=== PATIENT | female | born 1950 | race Caucasian/White ===

== ENCOUNTER 2020-04-23 10:16 | Inpatient (IN) | payer MEDICARE ==
--- NOTE | 2020-04-23 11:03 | ED ---
Psych HPI - General Source: patient Mode of arrival: EMS <Vishal Mccallum - Last Filed: 04/23/20 19:30> - General Source: RN notes reviewed, old records reviewed - History of Present Illness MD Complaint: altered mental status -: unknown Associated Psychiatric Symptoms: racing thoughts, auditory hallucinations, visual hallucinations, delusions, other (Per transfer paperwork) Quality: getting worse Worsens With: medication (Steroids) Context: new medication(s) Treatments Prior to Arrival: placed on mental health hold <Quinton Fisher - Last Filed: 04/23/20 22:16> - General Chief Complaint: Psychiatric Symptoms Stated Complaint: Mental Health Time Seen by Provider: 04/23/20 10:27 - History of Present Illness Initial Comments: Patient is 69-year-old female with history of COPD presenting to emergency department for psychiatric evaluation. Patient is transferred from [facility] per request of for geriatric psychiatric evaluation. is also present in the room to answer additional questions. Per , patient was discharged from [facility] after she was admitted for steroid-induced psychosis. states the patient did not improve so they returned today for evaluation. Per ED nose from [facility], donna dale was given Geodon and Ativan because she was uncooperative and yelling. Patient transferred to this facility. Patient is currently drowsy and not able to answer additional questions. (Vishal Mccallum) - Related Data Home Medications Medication Instructions Recorded Confirmed Carvedilol [Coreg] 25 mg PO BID 04/23/20 04/23/20 Lisinopril-Hctz 20-12.5 mg 1 tab PO DAILY 04/23/20 04/23/20 [Zestoretic 20-12.5] Omeprazole 20 mg PO BID 04/23/20 04/23/20 amLODIPine [Norvasc] 10 mg PO DAILY 04/23/20 04/23/20 cloNIDine HCL [Catapres] 0.1 mg PO BID 04/23/20 04/23/20 Allergies Allergy/AdvReac Type Severity Reaction Status Date / Time codeine Allergy Unknown Verified 04/23/20 12:33 iodine Allergy Unknown Verified 04/23/20 12:33 Penicillins Allergy Swelling Verified 04/23/20 12:33 Review of Systems ROS Other: All systems not noted in ROS Statement are negative. <Vishal Mccallum - Last Filed: 04/23/20 19:30> ROS Other: All systems not noted in ROS Statement are negative. <Quinton Fisher - Last Filed: 04/23/20 22:16> ROS Statement: Those systems with pertinent positive or pertinent negative responses have been documented in the HPI. Past Medical History Past Medical History: COPD, Hypertension, Respiratory Disorder Additional Past Medical History / Comment(s): fibromyalgia Past Surgical History: Appendectomy, Orthopedic Surgery, Tonsillectomy Past Psychological History: No Psychological Hx Reported Smoking Status: Former smoker Past Alcohol Use History: Rare Past Drug Use History: None Reported <Vishal Mccallum - Last Filed: 04/23/20 19:30> General Exam Limitations: no limitations General appearance: in no apparent distress Head exam: Present: atraumatic, normocephalic, normal inspection Eye exam: Present: normal appearance, PERRL, EOMI Pupils: Present: normal accommodation ENT exam: Present: normal exam, normal oropharynx, mucous membranes dry Neck exam: Present: normal inspection Respiratory exam: Present: normal lung sounds bilaterally. Absent: respiratory distress, wheezes, rales Cardiovascular Exam: Present: normal rhythm, tachycardia, systolic murmur Extremities exam: Present: normal inspection, normal capillary refill, other (+2 ulnar and radial pulses bilateral.) Back exam: Present: normal inspection Skin exam: Present: warm, dry, intact, normal color <Vishal Mccallum - Last Filed: 04/23/20 19:30> General appearance: in no apparent distress, obtunded, in distress Head exam: Present: atraumatic, normocephalic, normal inspection Eye exam: Present: normal appearance, PERRL, EOMI. Absent: scleral icterus, conjunctival injection, periorbital swelling ENT exam: Present: normal exam, mucous membranes moist Neck exam: Present: normal inspection. Absent: tenderness, meningismus, lymphadenopathy Respiratory exam: Present: normal lung sounds bilaterally. Absent: respiratory distress, wheezes, rales, rhonchi, stridor Cardiovascular Exam: Present: regular rate, normal rhythm, tachycardia, normal heart sounds. Absent: systolic murmur, diastolic murmur, rubs, gallop, clicks GI/Abdominal exam: Present: soft, normal bowel sounds. Absent: distended, tenderness, guarding, rebound, rigid Extremities exam: Present: normal inspection, full ROM, normal capillary refill. Absent: tenderness, pedal edema, joint swelling, calf tenderness Back exam: Present: normal inspection Neurological exam: Present: alert, oriented X3, CN II-XII intact Psychiatric exam: Present: normal affect, normal mood Skin exam: Present: warm, dry, intact, normal color. Absent: rash <Quinton Fisher - Last Filed: 04/23/20 22:16> Course <Quinton Fisher - Last Filed: 04/23/20 22:16> Vital Signs 04/23/20 04/23/20 04/23/20 10:22 10:39 15:00 Temperature 97.4 F L Pulse Rate 111 H 68 Respiratory 18 20 Rate Blood Pressure 170/92 157/64 O2 Sat by Pulse 100 96 Oximetry 04/23/20 18:48 Temperature Pulse Rate 88 Respiratory 18 Rate Blood Pressure 146/72 O2 Sat by Pulse 96 Oximetry - Reevaluation(s) Reevaluation #1: 04/23/20 22:13 Medical record is reviewed (Quinton Fisher) Reevaluation #2: 04/23/20 22:14 Patient did receive Geodon and Ativan it prior facility (Quinton Fisher) Reevaluation #3: 04/23/20 22:14 Patient was unable to wake up from Geodon and Ativan in secondary to mildly dec reased appreciated respiratory drive developed charley management respiratory acidosis requiring intubation secondary to unresponsiveness (Quinton Fisher) - Consultations Consultation #1: Spoke with Dr. Cruz and Dr. Mayberry for ICU placement (Quinton Fisher) Procedures - Intubation Sedative: Versed Paralytic: Succinylcholine Laryngoscope: Eda ET Tube Size: 7.5 ET Tube Uncuffed: No Tube Secured Location: teeth Tube Placement Confirmation: visualized tube passing through cords, equal breath sounds bilaterally, no breath sounds over epigastrium, confirmation by capnometry Patient Tolerated Procedure: well Intubation Complications: none <Quinton Fisher - Last Filed: 04/23/20 22:16> Medical Decision Making - Lab Data Result diagrams: 04/23/20 18:35 04/23/20 18:35 <Vishal Mccallum - Last Filed: 04/23/20 19:30> - Lab Data Result diagrams: 04/23/20 18:35 04/23/20 18:35 - EKG Data -: EKG Interpreted by Me (EKG shows sinus of 97, VA 154 QRS 82 QTC 441) - Radiology Data Radiology results: report reviewed (CT brain is negative chest x-rays negative for acute disease), image reviewed <Quinton Fisher - Last Filed: 04/23/20 22:16> - Medical Decision Making Patient is a 69-year-old female presented to the emergency department for psychiatric evaluation patient is a transfer from [facility]. Prior to transfer, patient was given Geodon and Ativan. Patient continues to be drowsy and emergency department. UA reveals no signs of urinary tract infections. Urine drug screen screen reveals positive for benzodiazepines. CBC is an alert,. CMP reveals mild hyponatremia. Patient is pending EPS eval uation. At this time patient care will be signed off to Dr fisher (Vishal Mccallum) 69 female for respiratory failure medication induced complicated by history of oxygen-dependent COPD. Patient was intubated and will be admitted for further evaluation management (Quinton Fisher) - Lab Data Lab Results 04/23/20 04/23/20 04/23/20 Range/Units 13:39 18:07 18:35 WBC 8.4 (3.8-10.6) k/uL RBC 4.62 (3.80-5.40) m/uL Hgb 14.3 (11.4-16.0) gm/dL Hct 45.1 (34.0-46.0) % MCV 97.6 (80.0-100.0) fL MCH 30.9 (25.0-35.0) pg MCHC 31.7 (31.0-37.0) g/dL RDW 12.4 (11.5-15.5) % Plt Count 187 (150-450) k/uL Neutrophils % 85 % Lymphocytes % 5 % Monocytes % 7 % Eosinophils % 0 % Basophils % 1 % Neutrophils # 7.1 (1.3-7.7) k/uL Lymphocytes # 0.4 L (1.0-4.8) k/uL Monocytes # 0.6 (0-1.0) k/uL Eosinophils # 0.0 (0-0.7) k/uL Basophils # 0.1 (0-0.2) k/uL Sodium (137-145) mmol/L Potassium (3.5-5.1) mmol/L Chloride (98-107) mmol/L Carbon Dioxide (22-30) mmol/L Anion Gap mmol/L BUN (7-17) mg/dL Creatinine (0.52-1.04) mg/dL Est GFR (CKD-EPI)AfAm (>60 ml/min/1.73 sqM) Est GFR (CKD-EPI)NonAf (>60 ml/min/1.73 sqM) Glucose (74-99) mg/dL POC Glucose (mg/dL) 146 H (75-99) mg/dL POC Glu [employer] ID Bhrati Mak Plasma Lactic Acid Canelo (0.7-2.0) mmol/L Calcium (8.4-10.2) mg/dL Total Bilirubin (0.2-1.3) mg/dL AST (14-36) U/L ALT (4-34) U/L Alkaline Phosphatase (38-126) U/L Ammonia (<30) umol/L Total Protein (6.3-8.2) g/dL Albumin (3.5-5.0) g/dL Urine Color Yellow Urine Appearance Clear (Clear) Urine pH 7.0 (5.0-8.0) Ur Specific Mcclusky 1.010 (1.001-1.035) Urine Protein Trace H (Negative) Urine Glucose (UA) Negative (Negative) Urine Ketones Negative (Negative) Urine Blood Negative (Negative) Urine Nitrite Negative (Negative) Urine Bilirubin Negative (Negative) Urine Urobilinogen <2.0 (<2.0) mg/dL Ur Leukocyte Esterase Negative (Negative) Salicylates mg/dL Urine Opiates Screen Not Detected (NotDetected) Ur Oxycodone Screen Not Detected (NotDetected) Urine Methadone Screen Not Detected (NotDetected) Ur Propoxyphene Screen Not Detected (NotDetected) Acetaminophen ug/mL Ur Barbiturates Screen Not Detected (NotDetected) U Tricyclic Antidepress Not Detected (NotDetected) Ur Phencyclidine Scrn Not Detected (NotDetected) Ur Amphetamines Screen Not Detected (NotDetected) U Methamphetamines Scrn Not Detected (NotDetected) U Benzodiazepines Scrn Detected H (NotDetected) Urine Cocaine Screen Not Detected (NotDetected) U Marijuana (THC) Screen Not Detected (NotDetected) Serum Alcohol mg/dL 04/23/20 04/23/20 04/23/20 Range/Units 18:35 19:19 19:35 WBC (3.8-10.6) k/uL RBC (3.80-5.40) m/uL Hgb (11.4-16.0) gm/dL Hct (34.0-46.0) % MCV (80.0-100.0) fL MCH (25.0-35.0) pg MCHC (31.0-37.0) g/dL RDW (11.5-15.5) % Plt Count (150-450) k/uL Neutrophils % % Lymphocytes % % Monocytes % % Eosinophils % % Basophils % % Neutrophils # (1.3-7.7) k/uL Lymphocytes # (1.0-4.8) k/uL Monocytes # (0-1.0) k/uL Eosinophils # (0-0.7) k/uL Basophils # (0-0.2) k/uL Sodium 133 L (137-145) mmol/L Potassium 4.1 (3.5-5.1) mmol/L Chloride 92 L (98-107) mmol/L Carbon Dioxide 33 H (22-30) mmol/L Anion Gap 8 mmol/L BUN 15 (7-17) mg/dL Creatinine 0.53 (0.52-1.04) mg/dL Est GFR (CKD-EPI)AfAm >90 (>60 ml/min/1.73 sqM) Est GFR (CKD-EPI)NonAf >90 (>60 ml/min/1.73 sqM) Glucose 140 H (74-99) mg/dL POC Glucose (mg/dL) (75-99) mg/dL POC Glu [employer] T[employer] Apprentice ID Plasma Lactic Acid Canelo 0.6 L (0.7-2.0) mmol/L Calcium 8.8 (8.4-10.2) mg/dL Total Bilirubin 0.5 (0.2-1.3) mg/dL AST 38 H (14-36) U/L ALT 55 H (4-34) U/L Alkaline Phosphatase 63 (38-126) U/L Ammonia 30 H (<30) umol/L Total Protein 6.8 (6.3-8.2) g/dL Albumin 4.0 (3.5-5.0) g/dL Urine Color Urine Appearance (Clear) Urine pH (5.0-8.0) Ur Specific Mcclusky (1.001-1.035) Urine Protein (Negative) Urine Glucose (UA) (Negative) Urine Ketones (Negative) Urine Blood (Negative) Urine Nitrite (Negative) Urine Bilirubin (Negative) Urine Urobilinogen (<2.0) mg/dL Ur Leukocyte Esterase (Negative) Salicylates <1.0 mg/dL Urine Opiates Screen (NotDetected) Ur Oxycodone Screen (NotDetected) Urine Methadone Screen (NotDetected) Ur Propoxyphene Screen (NotDetected) Acetaminophen <10.0 ug/mL Ur Barbiturates Screen (NotDetected) U Tricyclic Antidepress (NotDetected) Ur Phencyclidine Scrn (NotDetected) Ur Amphetamines Screen (NotDetected) U Methamphetamines Scrn (NotDetected) U Benzodiazepines Scrn (NotDetected) Urine Cocaine Screen (NotDetected) U Marijuana (THC) Screen (NotDetected) Serum Alcohol <10 mg/dL Critical Care Time Critical Care Time: Yes Total Critical Care Time: 31 <Quinton Fisher - Last Filed: 04/23/20 22:16> Disposition Is patient prescribed a controlled substance at d/c from ED?: No <Vishal Mccallum - Last Filed: 04/23/20 19:30> Is patient prescribed a controlled substance at d/c from ED?: No <Quinton Fisher - Last Filed: 04/23/20 22:16> Clinical Impression: Acute psychosis, Psychosis, Acute respiratory failure, Drug-induced psychotic disorder Disposition: ADMITTED IP TO THIS [facility] Condition: Serious Referrals: Nonstaff,Physician [REFERRING] - 1-2 days
[2020-04-23 14:07] LABS: Appearance,Urine Clear (Clear); Bilirubin,Urine Negative (Negative); Blood,Urine Negative (Negative); Color,Urine Yellow; Glucose,Urine (UA) Negative (Negative); Ketones,Urine Negative (Negative); Leukocyte Esterase,Urine Negative (Negative); Nitrite,Urine Negative (Negative); Protein,Urine Trace (Negative); Urobilinogen,Urine <2.0 mg/dL (<2.0)
[2020-04-23 14:25] LABS: Amphetamine Screen,Urine Not Detected (NotDetected); Barbiturate Screen,Urine Not Detected (NotDetected); Benzodiazepines Screen,Urine Detected (NotDetected); Cocaine Screen,Urine Not Detected (NotDetected); Methadone Screen, Urine Not Detected (NotDetected); Opiate Screen,Urine Not Detected (NotDetected); Oxycodone Screen, Urine Not Detected (NotDetected); Phencyclidine Screen,Urine Not Detected (NotDetected); Tricyclic Antidepressant,Urine Not Detected (NotDetected); Urn Cannabinoid Scrn Not Detected (NotDetected)
[2020-04-23 18:09] LABS: Glucose,Whole Blood 146 mg/dL (75-99)
[2020-04-23 18:42] LABS: Basophils # (A) 0.1 k/uL (0-0.2); Basophils % (A) 1 %; Eosinophils % (A) 0 %; HCT 45.1 % (34.0-46.0); HGB 14.3 gm/dL (11.4-16.0); Lymphocytes # (A) 0.4 k/uL (1.0-4.8); Lymphocytes % (A) 5 %; MCH 30.9 pg (25.0-35.0); MCHC 31.7 g/dL (31.0-37.0); MCV 97.6 fL (80.0-100.0); Mean Platelet Volume 6.7; Monocytes # (A) 0.6 k/uL (0-1.0); Monocytes % (A) 7 %; Neutrophils # (A) 7.1 k/uL (1.3-7.7); Neutrophils % (A) 85 %; Platelet Count 187 k/uL (150-450); RBC 4.62 m/uL (3.80-5.40); RDW 12.4 % (11.5-15.5); WBC 8.4 k/uL (3.8-10.6)
[2020-04-23 19:05] LABS: ALT 55 U/L (4-34); AST 38 U/L (14-36); African American GFR (CKD) >90 (>60 ml/min/1.73 sqM); Alcohol <10 mg/dL; Alkaline Phosphatase 63 U/L (38-126); Anion Gap 8 mmol/L; Blood Urea Nitrogen 15 mg/dL (7-17); Calcium 8.8 mg/dL (8.4-10.2); Carbon Dioxide 33 mmol/L (22-30); Chloride 92 mmol/L (98-107); Glucose 140 mg/dL (74-99); Non-African American GFR(CKD) >90 (>60 ml/min/1.73 sqM); Potassium 4.1 mmol/L (3.5-5.1); Sodium 133 mmol/L (137-145); Total Bilirubin 0.5 mg/dL (0.2-1.3); Total Protein 6.8 g/dL (6.3-8.2)
[2020-04-23 19:38] LABS: Lactic Acid, Venous 0.6 mmol/L (0.7-2.0)
[2020-04-23 21:09] LABS: Acetaminophen <10.0 ug/mL; Salicylate <1.0 mg/dL
--- NOTE | 2020-04-23 21:12 | XR ---
EXAMINATION TYPE: XR chest 1V DATE OF EXAM: 04/23/2020 COMPARISON: 09/18/2018 HISTORY: Short of breath TECHNIQUE: FINDINGS: Heart appears enlarged. There is slight blunting left costophrenic angle. There is no heart failure. There are no hilar masses. There are chest leads. IMPRESSION: Mild pleural reaction left lung base unchanged compared to old exam. No heart failure.
[2020-04-23 21:15] LABS: ABG Base Excess 9.3 mmol/L; ABG HCO3 36 mmol/L (21-25); ABG Oxygen Saturation 95.1 % (94-97); ABG PH 7.28 (7.35-7.45); ABG PO2 87 mmHg (83-108); ABG TCO2 38 mmol/L (19-24); Allen Test Performed? Yes
--- NOTE | 2020-04-23 21:17 | CT ---
EXAMINATION TYPE: CT brain wo con DATE OF EXAM: 04/23/2020 COMPARISON: None HISTORY: Unresponsive CT DLP: 1098.4 mGycm Automated exposure control for dose reduction was used. Ventricles and sulci appear normal for age. There is no mass effect nor midline shift. There is no si gn of intracranial hemorrhage. There is some mild hypodensity in the anterior right internal capsule. Calvarium is intact. IMPRESSION: Hypodensity anterior right internal capsule consistent with small vessel ischemia. No hemorrhage.
[2020-04-23] MEDS ORDERED: MIDAZOLAM 1 MG/ML 5 ML VIAL IV STA (21:29)
[2020-04-23] MEDS ORDERED: SUCCINYLCHOLINE CHLORIDE VIAL 200 MG/10 ML VIAL IV STA (21:29)
--- NOTE | 2020-04-23 21:56 | XR ---
EXAMINATION TYPE: XR chest 1V portable DATE OF EXAM: 04/23/2020 COMPARISON: Today HISTORY: Short of breath. Tube placement. TECHNIQUE: FINDINGS: Endotracheal tube is 2.5 cm from the jessi. There is some atelectasis left lung base. Ther e is no heart failure. There are chest leads. There is nasogastric tube looped in the stomach. IMPRESSION: Tubing in good position. There is atelectasis left lung base unchanged.
[2020-04-23] MEDS ORDERED: IPRATROPIUM-ALBUTEROL 3 ML NEB INHALATION STA (22:03)
[2020-04-23] MEDS ORDERED: NALOXONE 0.4 MG/ML 1 ML VIAL IV PRN (22:03)
[2020-04-23] MEDS ORDERED: MIDAZOLAM 2 MG/2 ML VIAL IV STA (22:15)
[2020-04-23] MEDS ORDERED: MIDAZOLAM HCL 50 MG in SODIUM CHLORIDE 0.9% 40 ML IV SCH (22:15)
[2020-04-23 22:51] LABS: ABG Base Excess 7.3 mmol/L; ABG HCO3 33 mmol/L (21-25); ABG PCO2 58 mmHg (35-45); ABG PH 7.36 (7.35-7.45); ABG PO2 >400 mmHg (83-108); ABG TCO2 35 mmol/L (19-24); Allen Test Performed? Yes
[2020-04-23 23:09] LABS: Glucose,Whole Blood 100 mg/dL (75-99)
[2020-04-24] MEDS ORDERED: CHLORHEXIDINE GLUCONATE 15 ML CUP MUCOUS MEM ONE ×2 (00:02→21:09)
[2020-04-24 05:27] LABS: Basophils % (A) 0 %; Eosinophils % (A) 0 %; HCT 38.3 % (34.0-46.0); HGB 12.2 gm/dL (11.4-16.0); Lymphocytes # (A) 0.5 k/uL (1.0-4.8); Lymphocytes % (A) 7 %; MCH 30.8 pg (25.0-35.0); MCHC 31.8 g/dL (31.0-37.0); MCV 96.8 fL (80.0-100.0); Mean Platelet Volume 7.2; Monocytes # (A) 0.5 k/uL (0-1.0); Monocytes % (A) 7 %; Neutrophils % (A) 85 %; Platelet Count 144 k/uL (150-450); RBC 3.96 m/uL (3.80-5.40); RDW 12.5 % (11.5-15.5); WBC 7.1 k/uL (3.8-10.6)
[2020-04-24 05:40] LABS: ALT 40 U/L (4-34); AST 33 U/L (14-36); African American GFR (CKD) >90 (>60 ml/min/1.73 sqM); Alkaline Phosphatase 66 U/L (38-126); Anion Gap 7 mmol/L; Blood Urea Nitrogen 18 mg/dL (7-17); Calcium 8.3 mg/dL (8.4-10.2); Carbon Dioxide 30 mmol/L (22-30); Chloride 95 mmol/L (98-107); Glucose 100 mg/dL (74-99); Magnesium 1.6 mg/dL (1.6-2.3); Non-African American GFR(CKD) >90 (>60 ml/min/1.73 sqM); Phosphorus 2.5 mg/dL (2.5-4.5); Potassium 3.6 mmol/L (3.5-5.1); Sodium 132 mmol/L (137-145); Total Bilirubin 0.5 mg/dL (0.2-1.3); Total Protein 5.3 g/dL (6.3-8.2)
[2020-04-24 05:44] LABS: Glucose,Whole Blood 109 mg/dL (75-99)
[2020-04-24] MEDS ORDERED: MIDAZOLAM HCL 50 MG in SODIUM CHLORIDE 0.9% 40 ML IV SCH (06:45)
[2020-04-24] MEDS: IPRATROPIUM-ALBUTEROL 3 ML NEB INHALATION SCH ×4 (07:35→19:09)
[2020-04-24] MEDS ORDERED: Potassium Replacement Protocol 1 EACH MISC MISCELLANE PRN (07:43)
[2020-04-24 07:51] LABS: ABG HCO3 31 mmol/L (21-25); ABG Oxygen Saturation 98.4 % (94-97); ABG PCO2 37 mmHg (35-45); ABG PH 7.53 (7.35-7.45); ABG PO2 95 mmHg (83-108); ABG TCO2 32 mmol/L (19-24); Allen Test Performed? Yes
--- NOTE | 2020-04-24 08:01 | XR ---
EXAMINATION TYPE: XR chest 1V DATE OF EXAM: 04/24/2020 COMPARISON: 04/23/2020 HISTORY: 69-year-old female intubation TECHNIQUE: Single frontal view of the chest is obtained. FINDINGS: ET tube satisfactory. NG tube is looped in the stomach. Heart normal size. Similar asymmetric elevati on left hemidiaphragm with some patchy left basilar opacity. Upper and mid lungs appear clear. IMPRESSION: Similar volume loss and some patchy opacity at the base, probable atelectasis. Correlate to exclude u nderlying infiltrate.
[2020-04-24] MEDS ORDERED: CHLORHEXIDINE GLUCONATE 15 ML CUP MUCOUS MEM SCH (09:00)
[2020-04-24] MEDS ORDERED: POTASSIUM BICARBONATE/CIT AC 20 MEQ TABLET.EFF NG-TUBE SCH (09:00)
[2020-04-24 10:21] LABS: ABG Base Excess 7.3 mmol/L; ABG HCO3 33 mmol/L (21-25); ABG Oxygen Saturation 94.7 % (94-97); ABG PCO2 56 mmHg (35-45); ABG PH 7.37 (7.35-7.45); ABG PO2 78 mmHg (83-108); ABG TCO2 34 mmol/L (19-24); Allen Test Performed? Yes
--- NOTE | 2020-04-24 11:07 | P.HPIM ---
History of Present Illness H&P Date: 04/24/20 HISTORY OF PRESENT ILLNESS This is a 69-year-old female patient of Dr. Shirley and Dr. Mayberry with past medical history of COPD, chronic hypoxic respiratory failure on home O2 at night, hypertension, chronic hyponatremia previously seen by endocrinology, gastroesophageal reflux disease, fibromyalgia, remote history of tobacco use. Patient had [address] [facility]. The first one was for COPD exacerbation and hyponatremia and was discharged home with a sodium of 129 and prednisone tapering dose and was also started on amlodipine, increase dose of Coreg and increase clonidine. Patient did not have any antibiotics prescribed. Patient had tolerated IV Solu-Medrol in the hospital without any mental status changes. She was discharged home in stable condition. She was rehospitalized on April 19 through April 21 which time she was treated for mental status changes possibly side effect of prednisone. Patient was very emotional alternating between laughing at times and crying. Drug screen and alcohol screen were negative. Chest x-ray showed no acute findings and CAT scan of the brain showed mild atrophy and chronic small vessel ischemic change. She did have insomnia at night and was given Benadryl. Patient continued to have labile effect reflecting possible pseudobulbar affect and she was provided prescription for Neudexta 20-10 mg at bedtime. Her sodium at the time of discharge was 132 patient was discharged home in stable condition. Previous to that, patient was hospitalized for COPD exacerbation and hypo natremia and was discharged home with a sodium of 129 and prednisone tapering dose. Plan patient presented to [facility] on April 23 for mental status changes that persisted and did not improve after discharge. Patient was actually yelling and very uncooperative. There was suspected steroid-induced psychosis. CBC was unremarkable. Sodium 132, potassium 3.3, chloride 91, CO2 31, BUN 18 and creatinine 0.8. ALT 66. Troponin 0.017. Magnesium 1.51. Patient was given Ativan and Geodon IM injections for sedation and started on IV fluids. There was concern the patient required geriatric psychiatric evaluation and patient was transferred to [facility] emergency center for evaluation. While in the emergency center at [facility], patient was very sedated thought to be related to the Geodon and Ativan given at [facility] and patient developed increasing poor respiratory drive requiring intubation which was done in the emergency center. Urine drug screen was positive for benzodiazepines. Urinalysis negative for infection. Lactic acid 0.6, ammonia level 30, salicylate level less than 1, alcohol level less than 10, and acetaminophen level less than 10. EKG is sinus rhythm with no acute ST-T wave changes. CAT scan of the brain showed hypodensity anterior right internal capsule consistent with small vessel ischemia. No hemorrhage. Patient was then transferred to the intensive care unit maintained on mechanical ventilation and consult requested with pulmonary medicine. We have subsequently added consult for psychiatry. At the time of evaluation, patient is awake and alert and able to follow simple commands. She is intubated and on mechanical ventilation with tidal volume 450, FiO2 40 and PEEP of 5. Plan is for extubation today. Repeat chest x-ray reveals similar volume loss and some patchy opacities at the base, probable atelectasis. Correlate to exclude underlying infiltrate. REVIEW OF SYSTEMS Unable to be obtained due to intubation. SOCIAL HISTORY Remote history of tobacco use. No alcohol use, marijuana use or illicit drug use. Patient has a nebulizer and home O2 that she uses at night. She does not have a CPAP. She is and lives at home with her . FAMILY HISTORY Mother at age 74 from lung cancer. Father at age 78 from emphysema. PHYSICAL EXAMINATION Gen: This is 69-year-old female. She is currently intubated and on mechanical ventilation. Patient is awake and alert. She is able to nod to answer questions. HEENT: Head is atraumatic, normocephalic. Pupils equal, round. Sclerae is anicteric. Oral ET and gastric tube in place. NECK: Supple. No JVD. No lymphadenopathy. No thyromegaly. LUNGS: Clear to auscultation. No wheezes or rhonchi. No intercostal retractions. HEART: Regular rate and rhythm. No murmur. ABDOMEN: Soft. Bowel sounds are present. No masses. No tenderness. Daily catheter draining clear teresa urine. EXTREMITIES: No pedal edema. No calf tenderness. NEUROLOGICAL: Patient is intubated and on mechanical ventilation. Patient's eyes are open and making eye contact. She is able to nod to answer questions. Hand elocution teacher equal bilaterally. Lower extremity strength equal bilaterally. ASSESSMENT AND PLAN 1. Acute psychosis starting on admission April [address] [facility], thought to be steroid induced, etiology not clear as patient has not had psychosis from steroids in the past. Patient was discharged on Neudexta with worsening psychosis. Consults with neurology and psychiatry. 2. Acute hypoxic respiratory failure secondary to loss of respiratory drive from Geodon and Ativan, required intubation and mechanical ventilation. Patient is to be extubated today. Consult with Dr. Aly clark. 3. COPD without exacerbation. Continue DuoNeb treatments 4 times daily. 4. Chronic hypoxic respiratory failure on home O2 at night. 5. Hypertension. Continue amlodipine 10 mg daily, Coreg 25 mg twice daily, clonidine 0.1 mg twice daily, Zestoretic 20/12.5 mg daily. 6. Chronic hyponatremia, stable. 7. Gastroesophageal reflux disease. Continue omeprazole or equivalent. 8. Fibromyalgia. 9. Remote history of tobacco use and dependence. 10. DVT prophylaxis. Lovenox subcu daily. Patient will be admitted to the hospital for a minimum of 2 night stay. Discharge plan: To be determined. Patient may require inpatient psychiatric care. PT evaluation. Impression and plan of care have been directed as dictated by the signing physician. Kassi Sharpe nurse practitioner acting as scribe for signing physician. Past Medical History Past Medical History: COPD, Hypertension, Respiratory Disorder Additional Past Medical History / Comment(s): fibromyalgia History of Any Multi-Drug Resistant Organisms: None Reported Past Surgical History: Appendectomy, Orthopedic Surgery, Tonsillectomy Past Anesthesia/Blood Transfusion Reactions: Unable to Obtain Past Psychological History: No Psychological Hx Reported Smoking Status: Unknown if ever smoked Past Alcohol Use History: Rare Past Drug Use History: None Reported Medications and Allergies Home Medications Medication Instructions Recorded Confirmed Type Carvedilol [Coreg] 25 mg PO BID 04/23/20 04/23/20 History Lisinopril-Hctz 20-12.5 mg 1 tab PO DAILY 04/23/20 04/23/20 History [Zestoretic 20-12.5] Omeprazole 20 mg PO BID 04/23/20 04/23/20 History amLODIPine [Norvasc] 10 mg PO DAILY 04/23/20 04/23/20 History cloNIDine HCL [Catapres] 0.1 mg PO BID 04/23/20 04/23/20 History Allergies Allergy/AdvReac Type Severity Reaction Status Date / Time codeine Allergy Unknown Verified 04/23/20 12:33 iodine Allergy Unknown Verified 04/23/20 12:33 Penicillins Allergy Swelling Verified 04/23/20 12:33 Physical Exam Vitals: Vital Signs Temp Pulse Resp BP Pulse Ox 04/24/20 08:00 87 20 110/60 100 04/24/20 07:49 92 04/24/20 07:00 84 20 111/61 100 04/24/20 06:00 86 20 135/66 100 04/24/20 05:00 85 20 121/64 100 04/24/20 04:00 98.4 F 87 20 114/58 100 04/24/20 03:00 86 20 110/57 100 04/24/20 02:00 87 20 116/61 100 04/24/20 01:30 84 20 110/57 100 04/24/20 01:00 84 20 112/58 100 04/24/20 00:30 82 20 150/69 100 04/24/20 00:00 83 20 107/57 100 04/23/20 23:30 98.0 F 84 20 130/64 100 04/23/20 22:30 78 20 127/72 04/23/20 22:28 98.0 F 78 16 127/72 97 04/23/20 22:27 80 16 127/72 04/23/20 22:15 80 16 93/75 04/23/20 22:00 112 H 16 81/54 04/23/20 21:45 95 16 04/23/20 21:30 34 H 04/23/20 21:15 103 H 32 H 98 04/23/20 21:13 106 H 35 H 98 04/23/20 18:48 88 18 146/72 96 04/23/20 15:00 68 20 157/64 96 04/23/20 10:39 97.4 F L 04/23/20 10:22 111 H 18 170/92 100 Intake and Output 04/23/20 04/24/20 04/24/20 22:59 06:59 14:59 Intake Total 140.833 20 Output Total 365 15 Balance -224.167 5 Intake: IV 140 20 .9NS 140 20 Intake, IV Titration 0.833 Amount Midazolam HCl 50 mg In 0.833 Sodium Chloride 0.9% 40 ml @ 1 MG/HR 1 mls/hr IV .Q24H [facility] Rx#:[id number] Output: Urine 365 15 Other: Voiding Method Indwelling Catheter Weight 92.8 kg Results CBC & Chem 7: 04/24/20 04:33 04/24/20 04:33 Labs: Abnormal Lab Results - Last 24 Hours (Table) 04/23/20 04/23/20 04/23/20 Range/Units 13:39 18:07 18:35 Plt Count (150-450) k/uL Lymphocytes # 0.4 L (1.0-4.8) k/uL ABG pH (7.35-7.45) ABG pCO2 (35-45) mmHg ABG pO2 (83-108) mmHg ABG HCO3 (21-25) mmol/L ABG Total CO2 (19-24) mmol/L ABG O2 Saturation (94-97) % Sodium (137-145) mmol/L Chloride (98-107) mmol/L Carbon Dioxide (22-30) mmol/L BUN (7-17) mg/dL Creatinine (0.52-1.04) mg/dL Glucose (74-99) mg/dL POC Glucose (mg/dL) 146 H (75-99) mg/dL Plasma Lactic Acid Canelo (0.7-2.0) mmol/L Calcium (8.4-10.2) mg/dL AST (14-36) U/L ALT (4-34) U/L Ammonia (<30) umol/L Total Protein (6.3-8.2) g/dL Albumin (3.5-5.0) g/dL Urine Protein Trace H (Negative) U Benzodiazepines Scrn Detected H (NotDetected) 04/23/20 04/23/20 04/23/20 Range/Units 18:35 19:19 20:43 Plt Count (150-450) k/uL Lymphocytes # (1.0-4.8) k/uL ABG pH 7.28 L (7.35-7.45) ABG pCO2 76 H* (35-45) mmHg ABG pO2 (83-108) mmHg ABG HCO3 36 H (21-25) mmol/L ABG Total CO2 38 H (19-24) mmol/L ABG O2 Saturation (94-97) % Sodium 133 L (137-145) mmol/L Chloride 92 L (98-107) mmol/L Carbon Dioxide 33 H (22-30) mmol/L BUN (7-17) mg/dL Creatinine (0.52-1.04) mg/dL Glucose 140 H (74-99) mg/dL POC Glucose (mg/dL) (75-99) mg/dL Plasma Lactic Acid Canelo 0.6 L (0.7-2.0) mmol/L Calcium (8.4-10.2) mg/dL AST 38 H (14-36) U/L ALT 55 H (4-34) U/L Ammonia 30 H (<30) umol/L Total Protein (6.3-8.2) g/dL Albumin (3.5-5.0) g/dL Urine Protein (Negative) U Benzodiazepines Scrn (NotDetected) 04/23/20 04/23/20 04/24/20 Range/Units 22:24 23:07 04:33 Plt Count 144 L (150-450) k/uL Lymphocytes # 0.5 L (1.0-4.8) k/uL ABG pH (7.35-7.45) ABG pCO2 58 H (35-45) mmHg ABG pO2 >400 H (83-108) mmHg ABG HCO3 33 H (21-25) mmol/L ABG Total CO2 35 H (19-24) mmol/L ABG O2 Saturation 100.0 H (94-97) % Sodium (137-145) mmol/L Chloride (98-107) mmol/L Carbon Dioxide (22-30) mmol/L BUN (7-17) mg/dL Creatinine (0.52-1.04) mg/dL Glucose (74-99) mg/dL POC Glucose (mg/dL) 100 H (75-99) mg/dL Plasma Lactic Acid Canelo (0.7-2.0) mmol/L Calcium (8.4-10.2) mg/dL AST (14-36) U/L ALT (4-34) U/L Ammonia (<30) umol/L Total Protein (6.3-8.2) g/dL Albumin (3.5-5.0) g/dL Urine Protein (Negative) U Benzodiazepines Scrn (NotDetected) 04/24/20 04/24/20 04/24/20 Range/Units 04:33 05:43 07:43 Plt Count (150-450) k/uL Lymphocytes # (1.0-4.8) k/uL ABG pH 7.53 H (7.35-7.45) ABG pCO2 (35-45) mmHg ABG pO2 (83-108) mmHg ABG HCO3 31 H (21-25) mmol/L ABG Total CO2 32 H (19-24) mmol/L ABG O2 Saturation 98.4 H (94-97) % Sodium 132 L (137-145) mmol/L Chloride 95 L (98-107) mmol/L Carbon Dioxide (22-30) mmol/L BUN 18 H (7-17) mg/dL Creatinine 0.47 L (0.52-1.04) mg/dL Glucose 100 H (74-99) mg/dL POC Glucose (mg/dL) 109 H (75-99) mg/dL Plasma Lactic Acid Canelo (0.7-2.0) mmol/L Calcium 8.3 L (8.4-10.2) mg/dL AST (14-36) U/L ALT 40 H (4-34) U/L Ammonia (<30) umol/L Total Protein 5.3 L (6.3-8.2) g/dL Albumin 3.0 L (3.5-5.0) g/dL Urine Protein (Negative) U Benzodiazepines Scrn (NotDetected)
[2020-04-24] MEDS: carvediloL 12.5 MG TAB PO SCH ×2 (11:45→20:04)
[2020-04-24] MEDS: amLODIPine 10 MG TAB PO SCH (11:45)
[2020-04-24] MEDS: PANTOPRAZOLE 40 MG/10 ML VIAL IV SCH (11:52)
[2020-04-24] MEDS: ENOXAPARIN 40 MG/0.4 ML SYRINGE SQ SCH (11:52)
[2020-04-24 12:15] LABS: Glucose,Whole Blood 130 mg/dL (75-99)
[2020-04-24] MEDS ORDERED: HALOPERIDOL LACTATE 5 MG/ML 1 ML VIAL IM PRN (13:38)
--- NOTE | 2020-04-24 13:49 | P.CN ---
Psychiatric Consult - . Consult date: 04/24/20 Consult:: 04/24/20 13:39 IDENTIFYING DATA: This patient is a 69-year-old female currently lives with her in a house has no kids and is currently unemployed. HISTORY OF PRESENT ILLNESS: The patient presented to the hospital as a transfer from [facility] for altered mental status and a psychiatric evaluation. Patient was recently discharged from the hospital for steroid induced psychosis as she was on prednisone previously and returned shortly back to the hospital. Upon transfer to [place], patient was given Geodon and Ativan and had decreases in respirations and required intubation and transferred to the ICU. Patient's UDS was positive for benzodiazepines. Psychiatry was consulted for psychosis. Patient's CT of her head showed hypodensity in the right internal capsule and small vessel ischemia. Nurse taking care of patient states that she was fairly obtunded however awoke more this morning and was able to speak however was labile in her affect and shortly after being extubated this morning required BiPAP for respiratory distress. Nurse also clean the patient was crying this morning. Patient's was at the bedside and spoke with story writer about patient's condition at home after being discharged from [facility] and stated that "she was going nuts" and proceeded to describe bizarre behavior and psychosis along with manic type features and states that that "she was tearing things off the wall and the curtains and the whole house". He states that she was only home for one day and had to take her back to the hospital. He also stated that she has never had an episode like this. Safety Assistant attempted to speak with patient however she was obtunded and not responsive. Rest of the history and information was provided by the at the bedside and from review of the EMR. PAST PSYCHIATRIC HISTORY: Patient does not have any significant psychiatric diagnosis. Denies being on any psychiatric medications. Denies any previous psychiatric hospitalizations.] denies any psychiatric outpatient follow-up. denies any history of suicide attempts in the past. PAST MEDICAL HISTORY: COPD, hypertension and fibromyalgia. ALLERGIES: as per EMR. CHEMICAL DEPENDENCY HISTORY: as per HPI. FAMILY PSYCHIATRIC/SUBSTANCE USE HISTORY: Patient's father had dementia Alzheimer's type. SOCIAL HISTORY: Patient was born and raised in [facility] and did not graduate high school. 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 She never had kids was to her and currently lives in a house. MENTAL STATUS EXAM: General Appearance: Patient appears to be laying in bed and is obtunded, poor hygiene and grooming. Patient is currently on BiPAP. Behavior: Patient is calmly lying in bed without any agitated behavior. Obt unded. Speech: Unable to assess Mood/Affect: Unable to assess Suicidality/Homicidality: Unable to assess Perceptions: Unable to assess Though content/process: None, unable to assess Memory and concentration: Unable to assess Judgment and insight: Unable to assess IMPRESSIONS: Psychosis unspecified, likely secondary to medication (STEROID) PLAN: -Delirium precautions recommended with patient including - avoiding use of narcotics, steroids and CANS VACUUM TESTER sedatives such as benzos, limit anticholinergic medications when possible, frequent re-orientation, minimize use of restraints, open window shades during the day and close them at night -Would recommend the following medication changes/additions: We'll start Haldol 2 mg twice a day for psychosis scheduled, we'll also start melatonin 3 mg daily at bedtime for sleep. Added Haldol IM 3 mg every 6 hours when necessary for agitation/psychosis. -Continue close monitoring in the ICU given patient's bizarre/altered mental status and also poor respiratory status. -Will continue to follow along -Please contact with any questions.
--- NOTE | 2020-04-24 14:35 | P.CNPUL ---
History of Present Illness Consult date: 04/24/20 Reason for consult: COPD Chief complaint: Mental status change History of present illness: This is a 69-year-old female familiar to my service, known to have history of severe COPD, chronic hypoxic and chronic hypercapnic respiratory failure. Hypertension, fibromyalgia, tobacco dependence syndrome, patient was recently inpatient at [facility], and I saw on consultation. After few days of hospitalization, patient was discharged home on bronchodilators and steroids. On April 11, patient presented to the ER at [facility] with mental status change, she was apparently uncooperative and yelling in the ER. It was felt that the patient may have developed steroids induced psychosis. Her metabolic profile was basically unremarkable. Patient received Ativan and Geodon while in the ER, and she was sent to [facility] for psychiatric evaluation and admission. However when she was in the ER, patient was noted to be extremely difficult to arouse, and she developed w hat seemed to be a picture of acute hypercapnic respiratory failure. Patient was intubated by the ER physician, and she was sent to the intensive care unit. I saw her this morning, discontinued all her sedatives, awaken the patient, given a trial of weaning with a pressure support and CPAP, and after half an hour, I recommended extubating the patient to BiPAP. Patient was extubated uneventfully. Review of Systems ROS unobtainable: due to endotracheal tube Past Medical History Past Medical History: COPD, Hypertension, Respiratory Disorder Additional Past Medical History / Comment(s): fibromyalgia History of Any Multi-Drug Resistant Organisms: None Reported Past Surgical History: Appendectomy, Orthopedic Surgery, Tonsillectomy Past Anesthesia/Blood Transfusion Reactions: Unable to Obtain Past Psychological History: No Psychological Hx Reported Smoking Status: Unknown if ever smoked Past Alcohol Use History: Rare Past Drug Use History: None Reported Medications and Allergies Home Medications Medication Instructions Recorded Confirmed Type Carvedilol [Coreg] 25 mg PO BID 04/23/20 04/23/20 History Lisinopril-Hctz 20-12.5 mg 1 tab PO DAILY 04/23/20 04/23/20 History [Zestoretic 20-12.5] Omeprazole 20 mg PO BID 04/23/20 04/23/20 History amLODIPine [Norvasc] 10 mg PO DAILY 04/23/20 04/23/20 History cloNIDine HCL [Catapres] 0.1 mg PO BID 04/23/20 04/23/20 History Allergies Allergy/AdvReac Type Severity Reaction Status Date / Time codeine Allergy Unknown Verified 04/23/20 12:33 iodine Allergy Unknown Verified 04/23/20 12:33 Penicillins Allergy Swelling Verified 04/23/20 12:33 Physical Exam Vitals: Vital Signs Temp Pulse Resp BP Pulse Ox 04/24/20 13:00 92 34 H 144/68 85 L 04/24/20 12:00 99.7 F H 105 H 24 156/72 93 L 04/24/20 11:10 96 04/24/20 11:00 98 28 H 147/71 99 04/24/20 10:00 105 H 34 H 143/67 96 04/24/20 09:00 99.5 F 87 20 138/61 97 04/24/20 08:00 87 20 110/60 100 04/24/20 07:49 92 04/24/20 07:00 84 20 111/61 100 04/24/20 06:00 86 20 135/66 100 04/24/20 05:00 85 20 121/64 100 04/24/20 04:00 98.4 F 87 20 114/58 100 04/24/20 03:00 86 20 110/57 100 04/24/20 02:00 87 20 116/61 100 04/24/20 01:30 84 20 110/57 100 04/24/20 01:00 84 20 112/58 100 04/24/20 00:30 82 20 150/69 100 04/24/20 00:00 83 20 107/57 100 04/23/20 23:30 98.0 F 84 20 130/64 100 04/23/20 22:30 78 20 127/72 04/23/20 22:28 98.0 F 78 16 127/72 97 04/23/20 22:27 80 16 127/72 04/23/20 22:15 80 16 93/75 04/23/20 22:00 112 H 16 81/54 04/23/20 21:45 95 16 04/23/20 21:30 34 H 04/23/20 21:15 103 H 32 H 98 04/23/20 21:13 106 H 35 H 98 04/23/20 18:48 88 18 146/72 96 04/23/20 15:00 68 20 157/64 96 Intake and Output 04/23/20 04/24/20 04/24/20 22:59 06:59 14:59 Intake Total 140.833 160.367 Output Total 365 250 Balance -224.167 -89.633 Intake: IV 140 140 .9NS 140 140 Intake, IV Titration 0.833 20.367 Amount Midazolam HCl 50 mg In 0.833 20.367 Sodium Chloride 0.9% 40 ml @ 1 MG/HR 1 mls/hr IV .Q24H [facility] Rx#:[id number] Output: Urine 365 250 Other: Voiding Method Indwelling Catheter Weight 92.8 kg Gen: Revealed 69-year-old female on mechanical ventilation, arousable, follows simple instructions. Head: Atraumatic, normocephalic. Endotracheal tube and orogastric tubes are intact. HEENT: PERRLA, EOMI, no icterus. NECK: Supple. No JVD. No lymphadenopathy. No thyromegaly. LUNGS: Diminished breath sounds at the bases symmetrical chest expansion, no crackles or rhonchi or wheezes. HEART: Normal S1 and S2, no S3 gallop. ABDOMEN: Soft nontender no megaly no rebound no guarding. EXTREMITIES: No pedal edema. No calf tenderness. NEUROLOGICAL: Off propofol, patient was noted to be arousable, followed simple instructions while on mechanical ventilation, Psychiatric: Could not be assessed. Skin: No rashes. Lymphatics: No lymphadenopathy. Results - Laboratory Findings CBC and BMP: 04/24/20 04:33 04/24/20 04:33 ABG ABG pH 7.37 (7.35-7.45) 04/24/20 10:21 ABG pCO2 56 mmHg (35-45) H 04/24/20 10:21 ABG pO2 78 mmHg (83-108) L 04/24/20 10:21 ABG O2 Saturation 94.7 % (94-97) 04/24/20 10:21 Abnormal lab findings: Abnormal Labs 04/23/20 04/23/20 04/23/20 13:39 18:07 18:35 Plt Count Lymphocytes # 0.4 L ABG pH ABG pCO2 ABG pO2 ABG HCO3 ABG Total CO2 ABG O2 Saturation Sodium Chloride Carbon Dioxide BUN Creatinine Glucose POC Glucose (mg/dL) 146 H Plasma Lactic Acid Canelo Calcium AST ALT Ammonia Total Protein Albumin Urine Protein Trace H U Benzodiazepines Scrn Detected H 04/23/20 04/23/20 04/23/20 18:35 19:19 20:43 Plt Count Lymphocytes # ABG pH 7.28 L ABG pCO2 76 H* ABG pO2 ABG HCO3 36 H ABG Total CO2 38 H ABG O2 Saturation Sodium 133 L Chloride 92 L Carbon Dioxide 33 H BUN Creatinine Glucose 140 H POC Glucose (mg/dL) Plasma Lactic Acid Canelo 0.6 L Calcium AST 38 H ALT 55 H Ammonia 30 H Total Protein Albumin Urine Protein U Benzodiazepines Scrn 04/23/20 04/23/20 04/24/20 22:24 23:07 04:33 Plt Count 144 L Lymphocytes # 0.5 L ABG pH ABG pCO2 58 H ABG pO2 >400 H ABG HCO3 33 H ABG Total CO2 35 H ABG O2 Saturation 100.0 H Sodium Chloride Carbon Dioxide BUN Creatinine Glucose POC Glucose (mg/dL) 100 H Plasma Lactic Acid Canelo Calcium AST ALT Ammonia Total Protein Albumin Urine Protein U Benzodiazepines Scrn 04/24/20 04/24/20 04/24/20 04:33 05:43 07:43 Plt Count Lymphocytes # ABG pH 7.53 H ABG pCO2 ABG pO2 ABG HCO3 31 H ABG Total CO2 32 H ABG O2 Saturation 98.4 H Sodium 132 L Chloride 95 L Carbon Dioxide BUN 18 H Creatinine 0.47 L Glucose 100 H POC Glucose (mg/dL) 109 H Plasma Lactic Acid Canelo Calcium 8.3 L AST ALT 40 H Ammonia Total Protein 5.3 L Albumin 3.0 L Urine Protein U Benzodiazepines Scrn 04/24/20 04/24/20 10:21 12:13 Plt Count Lymphocytes # ABG pH ABG pCO2 56 H ABG pO2 78 L ABG HCO3 33 H ABG Total CO2 34 H ABG O2 Saturation Sodium Chloride Carbon Dioxide BUN Creatinine Glucose POC Glucose (mg/dL) 130 H Plasma Lactic Acid Canelo Calcium AST ALT Ammonia Total Protein Albumin Urine Protein U Benzodiazepines Scrn - Diagnostic Findings Chest x-ray: image reviewed (Minimal atelectasis left base) Assessment and Plan Assessment: Impression: Acute on chronic hypoxic and hypercapnic respiratory failure requiring intubation and mechanical ventilation, likely exacerbated by Ativan and Geodon given prior to transfer. Acute psychosis, could be metabolic in nature or could be related to prednisone. Acute exacerbation of chronic obstructive pulmonary disease. Benign essential hypertension. Chronic hyponatremia. Fibromyalgia. Remote history of tobacco use and dependence. Recommendation: Continue ventilatory support. We will try a weaning trial using pressure support and CPAP. Hold sedation. Continue bronchodilators. If the patient tolerates pressure support and CPAP, will likely extubate the patient today. Prognosis will remain guarded even if extubated, patient will need to remain in the ICU. We'll continue to follow. Time with Patient: Greater than 30
[2020-04-24 14:44] LABS: ABG Base Excess 7.8 mmol/L; ABG HCO3 35 mmol/L (21-25); ABG Oxygen Saturation 92.9 % (94-97); ABG PH 7.26 (7.35-7.45); ABG PO2 78 mmHg (83-108); ABG TCO2 37 mmol/L (19-24); Allen Test Performed? Yes
[2020-04-24 14:46] LABS: ABG PCO2 77 mmHg (35-45)
[2020-04-24 17:12] LABS: ABG Base Excess 8.7 mmol/L; ABG HCO3 34 mmol/L (21-25); ABG Oxygen Saturation 89.4 % (94-97); ABG PCO2 63 mmHg (35-45); ABG PH 7.34 (7.35-7.45); ABG PO2 61 mmHg (83-108); ABG TCO2 36 mmol/L (19-24); Allen Test Performed? Yes
--- NOTE | 2020-04-24 18:24 | P.CNNES ---
History of Present Illness Consult date: 04/24/20 Requesting physician: Kassi Sharpe Reason for Consult: altered mental status: ?steroid induced psychosis History of Present Illness: This is a 69-year-old female with medical history of COPD, alcohol use, former tobacco use who was transferred from [facility] emergency department on 04/24/2020 for the psychiatric evaluation. Per medical documentation is states that the patient was discharged from [facility] after she was admitted for steroid-induced psychosis. At [facility] she was given Geodon on an Ativan she was uncooperative and yelling. In the ED the patient was drowsy and not answering any questions. In the ED the patient had decreased respiratory drive and had respiratory acidosis requiring intubation secondary due to unresponsiveness. Per medical records she was recently discharged from the hospital for steroid- induced psychosis and she was on prednisone previously and return back to the hospital. According to the medical records the stated that the patient wasn't acting herself and the was going "nuts". He described that she had bizarre behavior along with manic features and she was tearing things [id number] and the curtain the whole house. Initially she was intubated in the ED and then was extubated and now on BiPAP. Upon speaking with the patient she was on Bipap and was able to give me some of the history. Yesterday she went into the [facility] and was discharged with steroid for her COPD. Today she was told she was going crazy but feels the facility were not accurate in the story. Per patient ICU nurse, at the [facility] she was trying to rip the wall out and not behaving herself and now she is doing well with no neurological deficit. Patient has not had this episode before. patient denies of weakness, numbness, fever, chills, neck pain. She does drink alcohol but could not tell me when last drink was exactly and thinks it was about one week ago. Psychiatry evaluated the patient and they felt the patient had psychosis likely due to medication (steroids). Workup in the hospital consisted of: Patient initial vitals and the blood pressure of 170/92 the heart rate of 111 temperature of 97.4 orally, the pulse ox is 100 and nasally at the [address] of the head which was reported as hypodensity anterior right internal capsule consistent with small vessel ischemia. No hemorrhage. EKG was reported as normal sinus rhythm. Ventricular rate of 97. Urine drug test was positive for benzos. Review of Systems Review of system: The 12 point system was reviewed and apparent positive and negative per HPI. Past Medical History Past Medical History: COPD, Hypertension, Respiratory Disorder Additional Past Medical History / Comment(s): fibromyalgia History of Any Multi-Drug Resistant Organisms: None Reported Past Surgical History: Appendectomy, Orthopedic Surgery, Tonsillectomy Past Anesthesia/Blood Transfusion Reactions: Unable to Obtain Past Psychological History: No Psychological Hx Reported Smoking Status: Unknown if ever smoked Past Alcohol Use History: Rare Past Drug Use History: None Reported Medications and Allergies Home Medications Medication Instructions Recorded Confirmed Type Carvedilol [Coreg] 25 mg PO BID 04/23/20 04/23/20 History Lisinopril-Hctz 20-12.5 mg 1 tab PO DAILY 04/23/20 04/23/20 History [Zestoretic 20-12.5] Omeprazole 20 mg PO BID 04/23/20 04/23/20 History amLODIPine [Norvasc] 10 mg PO DAILY 04/23/20 04/23/20 History cloNIDine HCL [Catapres] 0.1 mg PO BID 04/23/20 04/23/20 History Allergies Allergy/AdvReac Type Severity Reaction Status Date / Time codeine Allergy Unknown Verified 04/23/20 12:33 iodine Allergy Unknown Verified 04/23/20 12:33 Penicillins Allergy Swelling Verified 04/23/20 12:33 Physical Examination - Vital Signs Vital Signs: Vital Signs Temp Pulse Resp BP Pulse Ox 04/24/20 17:00 86 24 137/59 93 L 04/24/20 16:00 99.2 F 78 25 H 124/58 91 L 04/24/20 15:51 79 04/24/20 15:40 84 04/24/20 15:00 72 26 H 109/49 90 L 04/24/20 14:00 79 26 H 94/44 91 L 04/24/20 13:00 92 34 H 144/68 85 L 04/24/20 12:00 99.7 F H 105 H 24 156/72 93 L 04/24/20 11:10 96 04/24/20 11:00 98 28 H 147/71 99 04/24/20 10:00 105 H 34 H 143/67 96 04/24/20 09:00 99.5 F 87 20 138/61 97 04/24/20 08:00 87 20 110/60 100 04/24/20 07:49 92 04/24/20 07:00 84 20 111/61 100 04/24/20 06:00 86 20 135/66 100 04/24/20 05:00 85 20 121/64 100 04/24/20 04:00 98.4 F 87 20 114/58 100 04/24/20 03:00 86 20 110/57 100 04/24/20 02:00 87 20 116/61 100 04/24/20 01:30 84 20 110/57 100 04/24/20 01:00 84 20 112/58 100 04/24/20 00:30 82 20 150/69 100 04/24/20 00:00 83 20 107/57 100 04/23/20 23:30 98.0 F 84 20 130/64 100 04/23/20 22:30 78 20 127/72 04/23/20 22:28 98.0 F 78 16 127/72 97 04/23/20 22:27 80 16 127/72 04/23/20 22:15 80 16 93/75 04/23/20 22:00 112 H 16 81/54 04/23/20 21:45 95 16 04/23/20 21:30 34 H 04/23/20 21:15 103 H 32 H 98 04/23/20 21:13 106 H 35 H 98 04/23/20 18:48 88 18 146/72 96 Intake and Output 04/24/20 04/24/20 04/24/20 06:59 14:59 22:59 Intake Total 140.833 180.367 40 Output Total 365 300 150 Balance -224.167 -119.633 -110 Intake: IV 140 160 40 .9NS 140 160 40 Intake, IV Titration 0.833 20.367 Amount Midazolam HCl 50 mg In 0.833 20.367 Sodium Chloride 0.9% 40 ml @ 1 MG/HR 1 mls/hr IV .Q24H [facility] Rx#:[id number] Output: Urine 365 300 150 Other: Voiding Method Indwelling Catheter Indwelling Catheter Weight 92.8 kg GENERAL: The patient is lying in bed and is not in acute distress. CHEST: The heart rate is regular rate rhythm. No murmurs to auscultation. LUNG: Clear to auscultation bilaterally no wheezing noted throughout. Not labored breathing. ABDOMEN/GI: Bowel sounds present in all 4 quadrants. No tenderness to palpation throughout. NEUROLOGICAL: Higher mental function: The patient is awake, alert, oriented to self, place and time. Patient is following commands. No aphasia and no neglect. Cranial nerves: The pupils are round, equal and reactive to light and accommodation. Visual long are full to confrontation throughout. Extraocular movement is intact no nystagmus is noted. Facial sensation is normal to touch throughout. The facial strength is normal throughout. Hearing is normal bilaterally to hand rub. Tongue is midline and moved [id number] without any difficulty. No dysarthria is noted. Shoulder shrug is normal bilaterally. Motor: The strength is 5 over 5 throughout. Normal tone and bulk. Cerebellum: Normal finger to nose heel to chin bilaterally. Sensation: Sensation is normal to touch throughout. Reflexes (right/left) 2+ throughout except at knee she said not to perform it since has surgery on it. Plantars are downgoing bilaterally. Results Ammonia level was 30 AST is 38 ALT is 55. Urine analysis was negative for UTI. All call level was less than 10. Acetaminophen was less than 10 sulci clicks was less than 1.0 - Laboratory Findings CBC and BMP: 04/24/20 04:33 04/24/20 04:33 Abnormal Lab Findings: Abnormal Labs 04/23/20 04/23/20 04/23/20 13:39 18:07 18:35 Plt Count Lymphocytes # 0.4 L ABG pH ABG pCO2 ABG pO2 ABG HCO3 ABG Total CO2 ABG O2 Saturation Sodium Chloride Carbon Dioxide BUN Creatinine Glucose POC Glucose (mg/dL) 146 H Plasma Lactic Acid Canelo Calcium AST ALT Ammonia Total Protein Albumin Urine Protein Trace H U Benzodiazepines Scrn Detected H 04/23/20 04/23/20 04/23/20 18:35 19:19 20:43 Plt Count Lymphocytes # ABG pH 7.28 L ABG pCO2 76 H* ABG pO2 ABG HCO3 36 H ABG Total CO2 38 H ABG O2 Saturation Sodium 133 L Chloride 92 L Carbon Dioxide 33 H BUN Creatinine Glucose 140 H POC Glucose (mg/dL) Plasma Lactic Acid Canelo 0.6 L Calcium AST 38 H ALT 55 H Ammonia 30 H Total Protein Albumin Urine Protein U Benzodiazepines Scrn 04/23/20 04/23/20 04/24/20 22:24 23:07 04:33 Plt Count 144 L Lymphocytes # 0.5 L ABG pH ABG pCO2 58 H ABG pO2 >400 H ABG HCO3 33 H ABG Total CO2 35 H ABG O2 Saturation 100.0 H Sodium Chloride Carbon Dioxide BUN Creatinine Glucose POC Glucose (mg/dL) 100 H Plasma Lactic Acid Canelo Calcium AST ALT Ammonia Total Protein Albumin Urine Protein U Benzodiazepines Scrn 04/24/20 04/24/20 04/24/20 04:33 05:43 07:43 Plt Count Lymphocytes # ABG pH 7.53 H ABG pCO2 ABG pO2 ABG HCO3 31 H ABG Total CO2 32 H ABG O2 Saturation 98.4 H Sodium 132 L Chloride 95 L Carbon Dioxide BUN 18 H Creatinine 0.47 L Glucose 100 H POC Glucose (mg/dL) 109 H Plasma Lactic Acid Cnaelo Calcium 8.3 L AST ALT 40 H Ammonia Total Protein 5.3 L Albumin 3.0 L Urine Protein U Benzodiazepines Scrn 04/24/20 04/24/20 04/24/20 10:21 12:13 14:38 Plt Count Lymphocytes # ABG pH 7.26 L ABG pCO2 56 H 77 H* ABG pO2 78 L 78 L ABG HCO3 33 H 35 H ABG Total CO2 34 H 37 H ABG O2 Saturation 92.9 L Sodium Chloride Carbon Dioxide BUN Creatinine Glucose POC Glucose (mg/dL) 130 H Plasma Lactic Acid Canelo Calcium AST ALT Ammonia Total Protein Albumin Urine Protein U Benzodiazepines Scrn 04/24/20 17:05 Plt Count Lymphocytes # ABG pH 7.34 L ABG pCO2 63 H ABG pO2 61 L ABG HCO3 34 H ABG Total CO2 36 H ABG O2 Saturation 89.4 L Sodium Chloride Carbon Dioxide BUN Creatinine Glucose POC Glucose (mg/dL) Plasma Lactic Acid Canelo Calcium AST ALT Ammonia Total Protein Albumin Urine Protein U Benzodiazepines Scrn Assessment and Plan Assessment: 69-year-old female with medical history of COPD, alcohol use, former tobacco use who was transferred from [facility] emergency department on 04/24/2020 for the psychiatric evaluation. Per medical documentation is states that the patient was discharged from [facility] after she was admitted for steroid-induced psychosis. 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 Recommend thiamine 100mg daily. Psychiatry is on board. Patient was placed on haloperidol 2 mg twice a day. There is no further work-up. Please reconsult if needed. Marquise Pineda M.D. Neuro-hospitalist Time with Patient: Greater than 30
[2020-04-24 18:35] LABS: Glucose,Whole Blood 110 mg/dL (75-99)
[2020-04-24] MEDS: MELATONIN 3 MG TABLET PO SCH (19:56)
[2020-04-24] MEDS: cloNIDine HCL 0.1 MG TAB PO SCH (20:04)
[2020-04-24 23:54] LABS: Glucose,Whole Blood 102 mg/dL (75-99)
[2020-04-25 04:58] LABS: Basophils % (A) 0 %; Eosinophils % (A) 0 %; HCT 40.3 % (34.0-46.0); HGB 12.6 gm/dL (11.4-16.0); Lymphocytes # (A) 0.6 k/uL (1.0-4.8); Lymphocytes % (A) 8 %; MCH 31.1 pg (25.0-35.0); MCHC 31.2 g/dL (31.0-37.0); MCV 99.7 fL (80.0-100.0); Mean Platelet Volume 6.8; Monocytes # (A) 0.5 k/uL (0-1.0); Monocytes % (A) 7 %; Neutrophils # (A) 5.8 k/uL (1.3-7.7); Neutrophils % (A) 82 %; Platelet Count 142 k/uL (150-450); RBC 4.04 m/uL (3.80-5.40); RDW 12.4 % (11.5-15.5)
[2020-04-25 05:10] LABS: African American GFR (CKD) >90 (>60 ml/min/1.73 sqM); Anion Gap 5 mmol/L; Blood Urea Nitrogen 20 mg/dL (7-17); Calcium 8.3 mg/dL (8.4-10.2); Carbon Dioxide 32 mmol/L (22-30); Chloride 94 mmol/L (98-107); Glucose 101 mg/dL (74-99); Non-African American GFR(CKD) >90 (>60 ml/min/1.73 sqM); Potassium 3.7 mmol/L (3.5-5.1); Sodium 131 mmol/L (137-145)
[2020-04-25] MEDS ORDERED: POTASSIUM CHLORIDE ER 20 MEQ TAB.ER PO SCH (06:00)
--- NOTE | 2020-04-25 07:39 | XR ---
EXAMINATION TYPE: XR chest 1V portable DATE OF EXAM: 04/25/2020 CLINICAL HISTORY: Difficulty breathing progress study. TECHNIQUE: Single AP portable semiupright view of the chest is obtained. COMPARISON: Chest x-ray from one day earlier and older studies. FINDINGS: Interval extubation with removal of endotracheal and orogastric tubes. Cardiac silhouette size stable and mildly enlarged with increasing left basilar opacity and background chronic parenchym al change. Right lung remains clear. Osseous structures are intact. IMPRESSION: Interval extubation. Background chronic parenchymal change and cardiomegaly with worsenin g left basilar acute infiltrate and/or atelectasis and probable small left pleural effusion all noted .
[2020-04-25] MEDS: IPRATROPIUM-ALBUTEROL 3 ML NEB INHALATION SCH ×4 (07:47→19:36)
[2020-04-25] MEDS: PANTOPRAZOLE 40 MG/10 ML VIAL IV SCH (10:44)
[2020-04-25] MEDS: ENOXAPARIN 40 MG/0.4 ML SYRINGE SQ SCH (10:44)
[2020-04-25] MEDS: carvediloL 12.5 MG TAB PO SCH ×2 (10:44→19:52)
[2020-04-25] MEDS: cloNIDine HCL 0.1 MG TAB PO SCH ×2 (10:45→19:52)
[2020-04-25] MEDS: amLODIPine 10 MG TAB PO SCH (10:45)
--- NOTE | 2020-04-25 10:51 | P.PN ---
Subjective Progress Note Date: 04/25/20 HISTORY OF PRESENT ILLNESS This is a 69-year-old female patient of Dr. Shirley and Dr. Mayberry with past medical history of COPD, chronic hypoxic respiratory failure on home O2 at night, hypertension, chronic hyponatremia previously seen by endocrinology, gastroesophageal reflux disease, fibromyalgia, remote history of tobacco use. Patient had 2 recent hospitalizations at [facility]. The first one was for COPD exacerbation and hyponatremia and was discharged home with a sodium of 129 and prednisone tapering dose and was also started on amlodipine, increase dose of Coreg and increase clonidine. Patient did not have any antibiotics prescribed. Patient had tolerated IV Solu-Medrol in the hospital without any mental status changes. She was discharged home in stable condition. She was rehospitalized on April 19 through April 21 which time she was treated for mental status changes possibly side effect of prednisone. Patient was very emotional alternating between laughing at times and crying. Drug screen and alcohol screen were negative. Chest x-ray showed no acute findings and CAT scan of the brain showed mild atrophy and chronic small vessel ischemic change. She did have insomnia at night and was given Benadryl. Patient continued to have labile effect reflecting possible pseudobulbar affect and she was provided prescription for Neudexta 20-10 mg at bedtime. Her sodium at the time of discharge was 132 patient was discharged home in stable condition. Previous to that, patient was hospitalized for COPD exacerbation and hyponatrem ia and was discharged home with a sodium of 129 and prednisone tapering dose. Plan patient presented to [facility] on April 23 for mental status changes that persisted and did not improve after discharge. Patient was actually yelling and very uncooperative. There was suspected steroid-induced psychosis. CBC was unremarkable. Sodium 132, potassium 3.3, chloride 91, CO2 31, BUN 18 and creatinine 0.8. ALT 66. Troponin 0.017. Magnesium 1.51. Patient was given Ativan and Geodon IM injections for sedation and started on IV fluids. There was concern the patient required geriatric psychiatric evaluation and patient was transferred to [facility] emergency center for evaluation. While in the emergency center at [facility], patient was very sedated thought to be related to the Geodon and Ativan given at [facility] and patient developed increasing poor respiratory drive requiring intubation which was done in the emergency center. Urine drug screen was positive for benzodiazepines. Urinalysis negative for infection. Lactic acid 0.6, ammonia level 30, salicylate level less than 1, alcohol level less than 10, and acetaminophen level less than 10. EKG is sinus rhythm with no acute ST-T wave changes. CAT scan of the brain showed hypodensity anterior right internal capsule consistent with small vessel ischemia. No hemorrhage. Patient was then transferred to the intensive care unit maintained on mechanical ventilation and consult requested with pulmonary medicine. We have subsequently added consult for psychiatry. At the time of evaluation, patient is awake and alert and able to follow simple commands. She is intubated and on mechanical ventilation with tidal volume 450, FiO2 40 and PEEP of 5. Plan is for extubation today. Repeat chest x-ray reveals similar volume loss and some patchy opacities at the base, probable atelectasis. Correlate to exclude underlying infiltrate. 04/25: Patient has been successfully extubated and is on BiPAP. Once off BiPAP, patient has significant mental status changes and his placed back on. She has been seen by psychiatry and neurology. Psychiatry has recommended avoiding use of narcotics, steroids and [employer] sedatives. Recommend Haldol 2 mg twice daily scheduled, melatonin at bedtime and Haldol added as needed for agitation and psychosis. Patient was seen by Dr. 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 He recommends either aspirin 81 mg daily or Plavix and Lipitor for old stroke and secondary stroke prophylaxis. Continue thiamine. Patient apparently is a drinker every day but is unable to provide any information today it due to encephalopathy. REVIEW OF SYSTEMS Unable to be obtained due to mental status. PHYSICAL EXAMINATION Gen: This is 69-year-old female. She is currently on BiPAP. Patient is responds minimally to verbal commands. HEENT: Head is atraumatic, normocephalic. Pupils equal, round. Sclerae is anicteric. NECK: Supple. No JVD. No lymphadenopathy. No thyromegaly. LUNGS: Clear to auscultation. No wheezes or rhonchi. No intercostal retractions. HEART: Regular rate and rhythm. No murmur. ABDOMEN: Soft. Bowel sounds are present. No masses. No tenderness. Daily catheter draining clear teresa urine. EXTREMITIES: No pedal edema. No calf tenderness. NEUROLOGICAL: Patient is on BiPAP. She is lethargic and opens eyes slightly to verbal stimuli. Unable to follow any commands. ASSESSMENT AND PLAN 1. Acute psychosis and metabolic encephalopathy starting on admission April 20 at [facility], thought to be steroid induced, etiology not clear as patient has not had psychosis from steroids in the past. Also history of alcohol abuse, not known at time of admission. This may be contributing to psychosis as well. Patient was discharged on Neudexta with worsening psychosis. Consults with neurology and psychiatry appreciated. Continue Haldol 2 mg twice daily and IM as needed. 2. Acute hypoxic respiratory failure secondary to loss of respiratory drive from Geodon and Ativan, required intubation and mechanical ventilation. Patient has been successfully extubated. Consult with Dr. Lu appreciated. Patient is currently on BiPAP. 3. COPD without exacerbation. Continue DuoNeb treatments 4 times daily. 4. Chronic hypoxic respiratory failure on home O2 at night. 5. Hypertension. Continue amlodipine 10 mg daily, Coreg 25 mg twice daily, clonidine 0.1 mg twice daily, Zestoretic 20/12.5 mg daily. 6. Chronic hyponatremia, stable. 7. Gastroesophageal reflux disease. Continue omeprazole or equivalent. 8. Fibromyalgia. 9. Remote history of tobacco use and dependence. 10. DVT prophylaxis. Lovenox subcu daily. Discharge plan: To be determined. PT evaluation. Impression and plan of care have been directed as dictated by the signing physician. Kassi Sharpe nurse practitioner acting as scribe for signing physician. Objective - Vital Signs Vital signs: Vital Signs Temp 99.0 F 04/25/20 08:00 Pulse 92 04/25/20 08:00 Resp 28 H 04/25/20 08:00 BP 142/66 04/25/20 08:00 Pulse Ox 96 04/25/20 08:00 Intake & Output 04/24/20 04/25/20 04/25/20 18:59 06:59 18:59 Intake Total 260.367 240 40 Output Total 510 615 200 Balance -249.633 -375 -160 Weight 95.2 kg Intake: IV 240 240 40 .9NS 240 240 40 Intake, IV Titration 20.367 Amount Midazolam HCl 50 mg In 20.367 Sodium Chloride 0.9% 40 ml @ 1 MG/HR 1 mls/hr IV .Q24H [facility] Rx#:[id number] Output: Urine 510 615 200 Other: Voiding Method Indwelling Catheter Indwelling Catheter Indwelling Catheter - Labs CBC & Chem 7: 04/25/20 04:33 04/25/20 04:33 Labs: Abnormal Lab Results - Last 24 Hours (Table) 04/24/20 04/24/20 04/24/20 Range/Units 10:21 12:13 14:38 Plt Count (150-450) k/uL Lymphocytes # (1.0-4.8) k/uL ABG pH 7.26 L (7.35-7.45) ABG pCO2 56 H 77 H* (35-45) mmHg ABG pO2 78 L 78 L (83-108) mmHg ABG HCO3 33 H 35 H (21-25) mmol/L ABG Total CO2 34 H 37 H (19-24) mmol/L ABG O2 Saturation 92.9 L (94-97) % Sodium (137-145) mmol/L Chloride (98-107) mmol/L Carbon Dioxide (22-30) mmol/L BUN (7-17) mg/dL Creatinine (0.52-1.04) mg/dL Glucose (74-99) mg/dL POC Glucose (mg/dL) 130 H (75-99) mg/dL Calcium (8.4-10.2) mg/dL 04/24/20 04/24/20 04/24/20 Range/Units 17:05 18:34 23:53 Plt Count (150-450) k/uL Lymphocytes # (1.0-4.8) k/uL ABG pH 7.34 L (7.35-7.45) ABG pCO2 63 H (35-45) mmHg ABG pO2 61 L (83-108) mmHg ABG HCO3 34 H (21-25) mmol/L ABG Total CO2 36 H (19-24) mmol/L ABG O2 Saturation 89.4 L (94-97) % Sodium (137-145) mmol/L Chloride (98-107) mmol/L Carbon Dioxide (22-30) mmol/L BUN (7-17) mg/dL Creatinine (0.52-1.04) mg/dL Glucose (74-99) mg/dL POC Glucose (mg/dL) 110 H 102 H (75-99) mg/dL Calcium (8.4-10.2) mg/dL 04/25/20 04/25/20 Range/Units 04:33 04:33 Plt Count 142 L (150-450) k/uL Lymphocytes # 0.6 L (1.0-4.8) k/uL ABG pH (7.35-7.45) ABG pCO2 (35-45) mmHg ABG pO2 (83-108) mmHg ABG HCO3 (21-25) mmol/L ABG Total CO2 (19-24) mmol/L ABG O2 Saturation (94-97) % Sodium 131 L (137-145) mmol/L Chloride 94 L (98-107) mmol/L Carbon Dioxide 32 H (22-30) mmol/L BUN 20 H (7-17) mg/dL Creatinine 0.40 L (0.52-1.04) mg/dL Glucose 101 H (74-99) mg/dL POC Glucose (mg/dL) (75-99) mg/dL Calcium 8.3 L (8.4-10.2) mg/dL Microbiology - Last 24 Hours (Table) 04/24/20 03:35 Gram Stain - Preliminary Sputum Sputum Culture - Preliminary
[2020-04-25] MEDS: LISINOPRIL-HCTZ 20-12.5 MG 1 EACH TAB PO SCH (11:19)
[2020-04-25 11:33] LABS: Glucose,Whole Blood 160 mg/dL (75-99)
--- NOTE | 2020-04-25 13:00 | P.PN ---
Subjective Progress Note Date: 04/25/20 Principal diagnosis: Acute on chronic hypoxic and hypercapnic respiratory failure requiring intubation and mechanical ventilation. This is a 69-year-old female familiar to my service, known to have history of severe COPD, chronic hypoxic and chronic hypercapnic respiratory failure. Hypertension, fibromyalgia, tobacco dependence syndrome, patient was recently inpatient at [facility], and I saw on consultation. After few days of hospitalization, patient was discharged home on bronchodilators and steroids. On April 11, patient presented to the ER at [facility] with mental status change, she was apparently uncooperative and yelling in the ER. It was felt that the patient may have developed steroids induced psychosis. Her metabolic profile was basically unremarkable. Patient received Ativan and Geodon while in the ER, and she was sent to [facility] for psychiatric evaluation and admission. However when she was in the ER, patient was noted to be extremely difficult to arouse, and she developed what seemed to be a picture of acute hypercapnic respiratory failure. Patient was intubated by the ER physician, and she was sent to the intensive care unit. I saw her this morning, discontinued all her sedatives, awaken the patient, given a trial of weaning with a pressure support and CPAP, and after half an hour, I recommended extubating the patient to BiPAP. Patient was extubated uneventfully. Reevaluated today on 04/25/20, patient remains in the ICU, off mechanical ventilation, but she remains on BiPAP with IPAP of 16 and EPAP of 4, FiO2 is 35%. Chest x-ray showed no evidence of pneumonia, there is left hemidiaphragm elevation. Patient is very comfortable, and does not seem to be in any distress. CBC is relatively normal electrolytes are relatively normal except for low sodium which is chronic 131. Remains on bronchodilators for underlying COPD. Objective - Vital Signs Vital signs: Vital Signs Temp 99.0 F 04/25/20 08:00 Pulse 93 04/25/20 11:10 Resp 32 H 04/25/20 11:00 BP 157/62 04/25/20 11:00 Pulse Ox 89 L 04/25/20 11:00 Intake & Output 04/24/20 04/25/20 04/25/20 18:59 06:59 18:59 Intake Total 260.367 240 100 Output Total 510 615 525 Balance -249.633 -375 -425 Weight 95.2 kg Intake: IV 240 240 100 .9NS 240 240 100 Intake, IV Titration 20.367 Amount Midazolam HCl 50 mg In 20.367 Sodium Chloride 0.9% 40 ml @ 1 MG/HR 1 mls/hr IV .Q24H [facility] Rx#:[id number] Output: Urine 510 615 525 Other: Voiding Method Indwelling Catheter Indwelling Catheter Indwelling Catheter - Exam Gen: Revealed 69-year-old female on BiPAP, awake, in no distress. Head: Atraumatic, normocephalic. On BiPAP. HEENT: PERRLA, EOMI, no icterus. NECK: Supple. No JVD. No lymphadenopathy. No thyromegaly. LUNGS: Diminished breath sounds at the bases symmetrical chest expansion, no crackles or rhonchi or wheezes. HEART: Normal S1 and S2, no S3 gallop. ABDOMEN: Soft nontender no megaly no rebound no guarding. EXTREMITIES: No pedal edema. No calf tenderness. NEUROLOGICAL: Alert and oriented 3 focal neurologic deficits. Psychiatric: Normal mood, blunt affect, normal mental status examination Skin: No rashes. Lymphatics: No lymphadenopathy. - Labs CBC & Chem 7: 04/25/20 04:33 04/25/20 04:33 Labs: Abnormal Lab Results - Last 24 Hours (Table) 04/24/20 04/24/20 04/24/20 Range/Units 14:38 17:05 18:34 Plt Count (150-450) k/uL Lymphocytes # (1.0-4.8) k/uL ABG pH 7.26 L 7.34 L (7.35-7.45) ABG pCO2 77 H* 63 H (35-45) mmHg ABG pO2 78 L 61 L (83-108) mmHg ABG HCO3 35 H 34 H (21-25) mmol/L ABG Total CO2 37 H 36 H (19-24) mmol/L ABG O2 Saturation 92.9 L 89.4 L (94-97) % Sodium (137-145) mmol/L Chloride (98-107) mmol/L Carbon Dioxide (22-30) mmol/L BUN (7-17) mg/dL Creatinine (0.52-1.04) mg/dL Glucose (74-99) mg/dL POC Glucose (mg/dL) 110 H (75-99) mg/dL Calcium (8.4-10.2) mg/dL 04/24/20 04/25/20 04/25/20 Range/Units 23:53 04:33 04:33 Plt Count 142 L (150-450) k/uL Lymphocytes # 0.6 L (1.0-4.8) k/uL ABG pH (7.35-7.45) ABG pCO2 (35-45) mmHg ABG pO2 (83-108) mmHg ABG HCO3 (21-25) mmol/L ABG Total CO2 (19-24) mmol/L ABG O2 Saturation (94-97) % Sodium 131 L (137-145) mmol/L Chloride 94 L (98-107) mmol/L Carbon Dioxide 32 H (22-30) mmol/L BUN 20 H (7-17) mg/dL Creatinine 0.40 L (0.52-1.04) mg/dL Glucose 101 H (74-99) mg/dL POC Glucose (mg/dL) 102 H (75-99) mg/dL Calcium 8.3 L (8.4-10.2) mg/dL 04/25/20 Range/Units 11:32 Plt Count (150-450) k/uL Lymphocytes # (1.0-4.8) k/uL ABG pH (7.35-7.45) ABG pCO2 (35-45) mmHg ABG pO2 (83-108) mmHg ABG HCO3 (21-25) mmol/L ABG Total CO2 (19-24) mmol/L ABG O2 Saturation (94-97) % Sodium (137-145) mmol/L Chloride (98-107) mmol/L Carbon Dioxide (22-30) mmol/L BUN (7-17) mg/dL Creatinine (0.52-1.04) mg/dL Glucose (74-99) mg/dL POC Glucose (mg/dL) 160 H (75-99) mg/dL Calcium (8.4-10.2) mg/dL Microbiology - Last 24 Hours (Table) 04/24/20 03:35 Gram Stain - Preliminary Sputum Sputum Culture - Preliminary Assessment and Plan Assessment: Impression: Acute on chronic hypoxic and hypercapnic respiratory failure requiring intubation and mechanical ventilation, likely exacerbated by Ativan and Geodon given prior to transfer. Patient was extubated to BiPAP yesterday. Acute psychosis, could be metabolic in nature or could be related to prednisone. Presently resolved. Acute exacerbation of chronic obstructive pulmonary disease. Benign essential hypertension. Chronic hyponatremia. Fibromyalgia. Remote history of tobacco use and dependence. Recommendation: Continue BiPAP, and transition to a nasal cannula.. Avoid sedation and narcotics. Continue bronchodilators. Continue to monitor in the ICU for the next 24 hours, and if she remains stable will transfer to a regular medical floor tomorrow Time with Patient: Less than 30
[2020-04-25 18:05] LABS: Glucose,Whole Blood 162 mg/dL (75-99)
[2020-04-25] MEDS: MELATONIN 3 MG TABLET PO SCH (19:31)
[2020-04-25 20:37] LABS: Glucose,Whole Blood 190 mg/dL (75-99)
[2020-04-26 05:13] LABS: Basophils % (A) 0 %; Eosinophils # (A) 0.1 k/uL (0-0.7); Eosinophils % (A) 1 %; HCT 39.7 % (34.0-46.0); HGB 12.4 gm/dL (11.4-16.0); Lymphocytes # (A) 0.4 k/uL (1.0-4.8); Lymphocytes % (A) 7 %; MCH 30.8 pg (25.0-35.0); MCHC 31.2 g/dL (31.0-37.0); MCV 98.8 fL (80.0-100.0); Monocytes # (A) 0.4 k/uL (0-1.0); Monocytes % (A) 7 %; Neutrophils # (A) 4.8 k/uL (1.3-7.7); Neutrophils % (A) 82 %; Platelet Count 140 k/uL (150-450); RBC 4.01 m/uL (3.80-5.40); RDW 12.2 % (11.5-15.5); WBC 5.8 k/uL (3.8-10.6)
[2020-04-26 05:23] LABS: African American GFR (CKD) >90 (>60 ml/min/1.73 sqM); Anion Gap 3 mmol/L; Blood Urea Nitrogen 22 mg/dL (7-17); Calcium 8.3 mg/dL (8.4-10.2); Carbon Dioxide 38 mmol/L (22-30); Chloride 89 mmol/L (98-107); Glucose 119 mg/dL (74-99); Non-African American GFR(CKD) >90 (>60 ml/min/1.73 sqM); Potassium 3.5 mmol/L (3.5-5.1); Sodium 130 mmol/L (137-145)
[2020-04-26] MEDS: CALCIUM CARBONATE 500 MG CHEWABLE PO PRN ×3 (05:31→21:07)
[2020-04-26] MEDS ORDERED: POTASSIUM CHLORIDE ER 20 MEQ TAB.ER PO SCH (06:00)
[2020-04-26 06:23] LABS: Glucose,Whole Blood 128 mg/dL (75-99)
[2020-04-26] MEDS: IPRATROPIUM-ALBUTEROL 3 ML NEB INHALATION SCH ×4 (07:19→19:18)
--- NOTE | 2020-04-26 07:26 | XR ---
EXAMINATION TYPE: XR chest 1V portable DATE OF EXAM: 04/26/2020 Comparison: 04/25/2020 Clinical History: 69 year-old female tube placement Findings: Heart remains borderline in size. Mild interstitial prominence persists. Moderate effusion on the lef t with left basilar opacity. The patient's chin obscures the left apex. Impression: 1. Correlate for mild pulmonary vascular congestion. 2. Continued moderate left pleural effusion with adjacent atelectasis and/or consolidation.
[2020-04-26] MEDS: PANTOPRAZOLE 40 MG/10 ML VIAL IV SCH (08:25)
[2020-04-26] MEDS: ENOXAPARIN 40 MG/0.4 ML SYRINGE SQ SCH (08:26)
[2020-04-26] MEDS: LISINOPRIL-HCTZ 20-12.5 MG 1 EACH TAB PO SCH (08:29)
[2020-04-26] MEDS: carvediloL 12.5 MG TAB PO SCH ×2 (08:30→19:50)
[2020-04-26] MEDS: amLODIPine 10 MG TAB PO SCH (08:30)
[2020-04-26] MEDS: cloNIDine HCL 0.1 MG TAB PO SCH ×2 (08:30→19:50)
[2020-04-26] MEDS: DOXYCYCLINE 100 MG CAP PO SCH ×2 (10:02→19:50)
--- NOTE | 2020-04-26 10:26 | P.PN ---
Subjective Progress Note Date: 04/26/20 HISTORY OF PRESENT ILLNESS This is a 69-year-old female patient of Dr. Shirley and Dr. Mayberry with past medical history of COPD, chronic hypoxic respiratory failure on home O2 at night, hypertension, chronic hyponatremia previously seen by endocrinology, gastroesophageal reflux disease, fibromyalgia, remote history of tobacco use. Patient had 2 recent hospitalizations at [facility]. The first one was for COPD exacerbation and hyponatremia and was discharged home with a sodium of 129 and prednisone tapering dose and was also started on amlodipine, increase dose of Coreg and increase clonidine. Patient did not have any antibiotics prescribed. Patient had tolerated IV Solu-Medrol in the hospital without any mental status changes. She was discharged home in stable condition. She was rehospitalized on April 19 through April 21 which time she was treated for mental status changes possibly side effect of prednisone. Patient was very emotional alternating between laughing at times and crying. Drug screen and alcohol screen were negative. Chest x-ray showed no acute findings and CAT scan of the brain showed mild atrophy and chronic small vessel ischemic change. She did have insomnia at night and was given Benadryl. Patient continued to have labile effect reflecting possible pseudobulbar affect and she was provided prescription for Neudexta 20-10 mg at bedtime. Her sodium at the time of discharge was 132 patient was discharged home in stable condition. Previous to that, patient was hospitalized for COPD exacerbation and hyponatrem ia and was discharged home with a sodium of 129 and prednisone tapering dose. Plan patient presented to [facility] on April 23 for mental status changes that persisted and did not improve after discharge. Patient was actually yelling and very uncooperative. There was suspected steroid-induced psychosis. CBC was unremarkable. Sodium 132, potassium 3.3, chloride 91, CO2 31, BUN 18 and creatinine 0.8. ALT 66. Troponin 0.017. Magnesium 1.51. Patient was given Ativan and Geodon IM injections for sedation and started on IV fluids. There was concern the patient required geriatric psychiatric evaluation and patient was transferred to [facility] emergency center for evaluation. While in the emergency center at [facility], patient was very sedated thought to be related to the Geodon and Ativan given at [facility] and patient developed increasing poor respiratory drive requiring intubation which was done in the emergency center. Urine drug screen was positive for benzodiazepines. Urinalysis negative for infection. Lactic acid 0.6, ammonia level 30, salicylate level less than 1, alcohol level less than 10, and acetaminophen level less than 10. EKG is sinus rhythm with no acute ST-T wave changes. CAT scan of the brain showed hypodensity anterior right internal capsule consistent with small vessel ischemia. No hemorrhage. Patient was then transferred to the intensive care unit maintained on mechanical ventilation and consult requested with pulmonary medicine. We have subsequently added consult for psychiatry. At the time of evaluation, patient is awake and alert and able to follow simple commands. She is intubated and on mechanical ventilation with tidal volume 450, FiO2 40 and PEEP of 5. Plan is for extubation today. Repeat chest x-ray reveals similar volume loss and some patchy opacities at the base, probable atelectasis. Correlate to exclude underlying infiltrate. 04/25: Patient has been successfully extubated and is on BiPAP. Once off BiPAP, patient has significant mental status changes and his placed back on. She has been seen by psychiatry and neurology. Psychiatry has recommended avoiding use of narcotics, steroids and [employer] sedatives. Recommend Haldol 2 mg twice daily scheduled, melatonin at bedtime and Haldol added as needed for agitation and psychosis. Patient was seen by Dr. 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 He recommends either aspirin 81 mg daily or Plavix and Lipitor for old stroke and secondary stroke prophylaxis. Continue thiamine. Patient apparently is a drinker every day but is unable to provide any information today it due to encephalopathy. 04/26: Patient remains in the ICU and is awake and alert. She is currently on O2 by nasal cannula. Patient is very concerned that she wants Dr. Mayberry to find her a new doctor because Dr. Shirley "doesn't give her a fuzzy feeling." Her last visit was a by telemedicine. Referred patient to discuss with Dr. Mayberry. She is not having any shortness of breath and able to speak in full sentences. Patient does state that she drinks alcohol but is unable to give or is evasive about questions regarding details. Patient has been afebrile, heart rate 90, blood pressure 144/64, pulse ox 91% on 2 L nasal cannula. Blood sugars running between 100 1962. WBC 5.8, hemoglobin 12.4, platelet count 140. Sodium 130, potassium 3.5, chloride 89, CO2 30, BUN 22 and creatinine 0.37. surveillance system monitor has been a sinus rhythm. Repeat chest x-ray reveals mild pulmonary vascular congestion. Left pleural effusion with adjacent atelectasis or consolidation. Anticipate patient will be cleared to move out of the intensive care unit. PT and OT to start working with the patient and case management director to make discharge planning. REVIEW OF SYSTEMS Constitutional: No fever, no chills, no night sweats. No weight change. Report weakness, fatigue or lethargy. No daytime sleepiness. EENT: No headache. No blurred vision or double vision, no loss of vision. No loss of Hearing, no ringing in the ears, no dizziness. No nasal drainage or congestion. No epistaxis. No sore throat. Lungs: No shortness of breath, cough, no sputum production. No wheezing. Cardiovascular: No chest pain, no lower extremity edema. No palpitations. No paroxysmal nocturnal dyspnea. No orthopnea. No lightheadedness or dizziness. No syncopal episodes. Abdominal: No abdominal pain. No nausea, vomiting. No diarrhea. No constipation. No bloody or tarry stools.. No loss of appetite. Genitourinary: No dysuria, increased frequency, urgency. No urinary retention. Musculoskeletal: No myalgias. No muscle weakness, no gait dysfunction, no frequent falls. No back pain. No neck pain. Integumentary: No wounds, no lesions. No rash or pruritus. No unusual bruising. No change in hair or nails. Neurologic: No aphasia. No facial droop. No change in mentation. No head injury. No headache. No paralysis. No paresthesia. Psychiatric: No depression. No anxiety. No mood swings. Endocrine: No abnormal blood sugars. No weight change. No excessive sweating or thirst. No cold intolerance. PHYSICAL EXAMINATION Gen: This is 69-year-old female. Patient appears to be in no acute distress. No respiratory distress noted. HEENT: Head is atraumatic, normocephalic. Pupils equal, round. Sclerae is anicteric. NECK: Supple. No JVD. No lymphadenopathy. No thyromegaly. LUNGS: Diminished breath sounds bilaterally. No wheezes or rhonchi. No intercostal retractions. HEART: Regular rate and rhythm. No murmur. ABDOMEN: Soft. Bowel sounds are present. No masses. No tenderness. Daily catheter draining clear teresa urine. EXTREMITIES: No pedal edema. No calf tenderness. NEUROLOGICAL: Patient is awake to person and place. Mild confusion as noted. She is able to follow commands. ASSESSMENT AND PLAN 1. Acute psychosis and metabolic encephalopathy starting on admission April 20 at [facility], thought to be steroid induced, etiology not clear as patient has not had psychosis from steroids in the past. Also history of alcohol abuse, not known at time of admission. This may be contributing to psychosis as well. Patient was discharged on Neudexta with worsening psychosis. Consults with neurology and psychiatry appreciated. Continue Haldol 2 mg twice daily and IM as needed. 2. Acute hypoxic respiratory failure secondary to loss of respiratory drive from Geodon and Ativan, required intubation and mechanical ventilation. Patient has been successfully extubated. Consult with Dr. Lu appreciated. Patient is currently on O2 by nasal cannula. 3. COPD without exacerbation. Continue DuoNeb treatments 4 times daily. 4. Chronic hypoxic respiratory failure on home O2 at night. 5. Hypertension. Continue amlodipine 10 mg daily, Coreg 25 mg twice daily, clonidine 0.1 mg twice daily, Zestoretic 20/12.5 mg daily. 6. Chronic hyponatremia, stable. 7. Gastroesophageal reflux disease. Continue omeprazole or equivalent. 8. Fibromyalgia. 9. Remote history of tobacco use and dependence. 10. DVT prophylaxis. Lovenox subcu daily. Discharge plan: To be determined. PT and OT evaluation. Impression and plan of care have been directed as dictated by the signing physician. Kassi Sharpe nurse practitioner acting as scribe for signing physician. Objective - Vital Signs Vital signs: Vital Signs Temp 99.1 F 04/26/20 08:00 Pulse 90 04/26/20 08:00 Resp 24 04/26/20 08:00 BP 144/64 04/26/20 08:00 Pulse Ox 91 L 04/26/20 08:00 Intake & Output 04/25/20 04/26/20 04/26/20 18:59 06:59 18:59 Intake Total 1040 260 20 Output Total 725 545 250 Balance 315 -285 -230 Weight 95.5 kg Intake: IV 240 260 20 .9NS 240 260 20 Oral 800 Output: Urine 725 545 250 Other: Voiding Method Indwelling Catheter Indwelling Catheter # Voids 30 - Labs CBC & Chem 7: 04/26/20 04:46 04/26/20 04:46 Labs: Abnormal Lab Results - Last 24 Hours (Table) 04/25/20 04/25/20 04/25/20 Range/Units 11:32 18:04 20:35 Plt Count (150-450) k/uL Lymphocytes # (1.0-4.8) k/uL Sodium (137-145) mmol/L Chloride (98-107) mmol/L Carbon Dioxide (22-30) mmol/L BUN (7-17) mg/dL Creatinine (0.52-1.04) mg/dL Glucose (74-99) mg/dL POC Glucose (mg/dL) 160 H 162 H 190 H (75-99) mg/dL Calcium (8.4-10.2) mg/dL 04/26/20 04/26/20 04/26/20 Range/Units 04:46 04:46 06:22 Plt Count 140 L (150-450) k/uL Lymphocytes # 0.4 L (1.0-4.8) k/uL Sodium 130 L (137-145) mmol/L Chloride 89 L (98-107) mmol/L Carbon Dioxide 38 H (22-30) mmol/L BUN 22 H (7-17) mg/dL Creatinine 0.37 L (0.52-1.04) mg/dL Glucose 119 H (74-99) mg/dL POC Glucose (mg/dL) 128 H (75-99) mg/dL Calcium 8.3 L (8.4-10.2) mg/dL
[2020-04-26 11:37] LABS: Glucose,Whole Blood 144 mg/dL (75-99)
--- NOTE | 2020-04-26 12:04 | P.PN ---
Subjective Progress Note Date: 04/26/20 Principal diagnosis: Acute on chronic hypoxic and hypercapnic respiratory failure requiring intubation and mechanical ventilation. This is a 69-year-old female familiar to my service, known to have history of severe COPD, chronic hypoxic and chronic hypercapnic respiratory failure. Hypertension, fibromyalgia, tobacco dependence syndrome, patient was recently inpatient at [facility], and I saw on consultation. After few days of hospitalization, patient was discharged home on bronchodilators and steroids. On April 11, patient presented to the ER at [facility] with mental status change, she was apparently uncooperative and yelling in the ER. It was felt that the patient may have developed steroids induced psychosis. Her metabolic profile was basically unremarkable. Patient received Ativan and Geodon while in the ER, and she was sent to [facility] for psychiatric evaluation and admission. However when she was in the ER, patient was noted to be extremely difficult to arouse, and she developed what seemed to be a picture of acute hypercapnic respiratory failure. Patient was intubated by the ER physician, and she was sent to the intensive care unit. I saw her this morning, discontinued all her sedatives, awaken the patient, given a trial of weaning with a pressure support and CPAP, and after half an hour, I recommended extubating the patient to BiPAP. Patient was extubated uneventfully. Reevaluated today on 04/25/20, patient remains in the ICU, off mechanical ventilation, but she remains on BiPAP with IPAP of 16 and EPAP of 4, FiO2 is 35%. Chest x-ray showed no evidence of pneumonia, there is left hemidiaphragm elevation. Patient is very comfortable, and does not seem to be in any distress. CBC is relatively normal electrolytes are relatively normal except for low sodium which is chronic 131. Remains on bronchodilators for underlying COPD. Patient was reevaluated today on 04/26/20, remains in the ICU, elevated extubation 2 days ago. However she is intermittently on BiPAP especially at [facility]. Presently off BiPAP, she is doing well, she is on nasal cannula, and she remains marginal, her chest x-ray continues to show left hemidiaphragm elevation with atelectasis, doubt pneumonia but is not entirely ruled out. All labs including CBC and basic metabolic profile were reviewed and noted to be normal bicarb is 38 indicative of severe underlying respiratory acidosis with metabolic compensation Objective - Vital Signs Vital signs: Vital Signs Temp 99.1 F 04/26/20 08:00 Pulse 74 04/26/20 11:00 Resp 21 04/26/20 11:00 BP 128/49 04/26/20 11:00 Pulse Ox 99 04/26/20 11:00 Intake & Output 04/25/20 04/26/20 04/26/20 18:59 06:59 18:59 Intake Total 1040 260 80 Output Total 725 545 590 Balance 315 -285 -510 Weight 95.5 kg Intake: IV 240 260 80 .9NS 240 260 80 Oral 800 Output: Urine 725 545 590 Other: Voiding Method Indwelling Catheter Indwelling Catheter Indwelling Catheter # Voids 30 - Exam Gen: Revealed 69-year-old female on 2 L nasal cannula, in no distress. Head: Atraumatic, normocephalic. HEENT: PERRLA, EOMI, no icterus. NECK: Supple. No JVD. No lymphadenopathy. No thyromegaly. LUNGS: Diminished breath sounds at the bases symmetrical chest expansion, no crackles or rhonchi or wheezes. HEART: Normal S1 and S2, no S3 gallop. ABDOMEN: Soft nontender no megaly no rebound no guarding. EXTREMITIES: No pedal edema. No calf tenderness. NEUROLOGICAL: Alert and oriented 3 focal neurologic deficits. Psychiatric: Normal mood, blunt affect, normal mental status examination Skin: No rashes. Lymphatics: No lymphadenopathy. - Labs CBC & Chem 7: 04/26/20 04:46 04/26/20 04:46 Labs: Abnormal Lab Results - Last 24 Hours (Table) 04/25/20 04/25/20 04/26/20 Range/Units 18:04 20:35 04:46 Plt Count 140 L (150-450) k/uL Lymphocytes # 0.4 L (1.0-4.8) k/uL Sodium (137-145) mmol/L Chloride (98-107) mmol/L Carbon Dioxide (22-30) mmol/L BUN (7-17) mg/dL Creatinine (0.52-1.04) mg/dL Glucose (74-99) mg/dL POC Glucose (mg/dL) 162 H 190 H (75-99) mg/dL Calcium (8.4-10.2) mg/dL 04/26/20 04/26/20 04/26/20 Range/Units 04:46 06:22 11:35 Plt Count (150-450) k/uL Lymphocytes # (1.0-4.8) k/uL Sodium 130 L (137-145) mmol/L Chloride 89 L (98-107) mmol/L Carbon Dioxide 38 H (22-30) mmol/L BUN 22 H (7-17) mg/dL Creatinine 0.37 L (0.52-1.04) mg/dL Glucose 119 H (74-99) mg/dL POC Glucose (mg/dL) 128 H 144 H (75-99) mg/dL Calcium 8.3 L (8.4-10.2) mg/dL Microbiology - Last 24 Hours (Table) 04/24/20 03:35 Gram Stain - Preliminary Sputum Sputum Culture - Preliminary Yeast species Assessment and Plan Assessment: Impression: Acute on chronic hypoxic and hypercapnic respiratory failure requiring intubation and mechanical ventilation, likely exacerbated by Ativan and Geodon given prior to transfer. Patient was extubated 2 days ago. Acute psychosis, could be metabolic in nature or could be related to prednisone. Resolved. Acute exacerbation of chronic obstructive pulmonary disease. Benign essential hypertension. Chronic hyponatremia. Fibromyalgia. Remote history of tobacco use and dependence. Recommendation: Continue present treatment plan including oxygen and alternate between nasal cannula and BiPAP. Avoid sedation and narcotics. Continue bronchodilators. Continue to monitor in the ICU Likely transfer to a regular medical floor in the next 24 hours. Time with Patient: Less than 30
[2020-04-26] MEDS: MELATONIN 3 MG TABLET PO SCH (19:50)
[2020-04-27] MEDS: CALCIUM CARBONATE 500 MG CHEWABLE PO PRN ×2 (01:52→20:36)
[2020-04-27 04:18] LABS: Basophils % (A) 0 %; Eosinophils # (A) 0.1 k/uL (0-0.7); Eosinophils % (A) 2 %; HCT 37.7 % (34.0-46.0); HGB 12.5 gm/dL (11.4-16.0); Lymphocytes # (A) 0.5 k/uL (1.0-4.8); Lymphocytes % (A) 12 %; MCH 31.9 pg (25.0-35.0); MCV 96.6 fL (80.0-100.0); Mean Platelet Volume 7.4; Monocytes # (A) 0.3 k/uL (0-1.0); Monocytes % (A) 7 %; Neutrophils # (A) 3.5 k/uL (1.3-7.7); Neutrophils % (A) 77 %; Platelet Count 148 k/uL (150-450); RBC 3.91 m/uL (3.80-5.40); RDW 12.2 % (11.5-15.5); WBC 4.6 k/uL (3.8-10.6)
[2020-04-27] MEDS: ALBUTEROL NEBULIZED 2.5 MG/3 ML INHALATION PRN ×2 (04:29→23:42)
[2020-04-27 04:30] LABS: African American GFR (CKD) >90 (>60 ml/min/1.73 sqM); Anion Gap 6 mmol/L; Blood Urea Nitrogen 15 mg/dL (7-17); Calcium 8.4 mg/dL (8.4-10.2); Carbon Dioxide 37 mmol/L (22-30); Chloride 86 mmol/L (98-107); Glucose 128 mg/dL (74-99); Non-African American GFR(CKD) >90 (>60 ml/min/1.73 sqM); Sodium 129 mmol/L (137-145)
[2020-04-27] MEDS: IPRATROPIUM-ALBUTEROL 3 ML NEB INHALATION SCH ×4 (07:38→19:22)
--- NOTE | 2020-04-27 08:01 | XR ---
EXAMINATION TYPE: XR chest 1V portable DATE OF EXAM: 04/27/2020 Comparison: 04/26/2020 Clinical History: 69-year-old female Tube placement Findings: Left heart margin obscured by adjacent parenchymal opacity. Right lung and pleural space are clear. P ulmonary vasculature within normal limits. Impression: Continued moderate left pleural effusion with adjacent atelectasis and/or consolidation.
[2020-04-27] MEDS: LISINOPRIL-HCTZ 20-12.5 MG 1 EACH TAB PO SCH (08:45)
[2020-04-27] MEDS: DOXYCYCLINE 100 MG CAP PO SCH ×2 (08:45→21:29)
[2020-04-27] MEDS: carvediloL 12.5 MG TAB PO SCH ×2 (08:45→21:28)
[2020-04-27] MEDS: ENOXAPARIN 40 MG/0.4 ML SYRINGE SQ SCH (08:45)
[2020-04-27] MEDS: cloNIDine HCL 0.1 MG TAB PO SCH ×2 (08:45→21:28)
[2020-04-27] MEDS: PANTOPRAZOLE 40 MG/10 ML VIAL IV SCH (08:45)
[2020-04-27] MEDS: amLODIPine 10 MG TAB PO SCH (08:45)
--- NOTE | 2020-04-27 09:08 | US ---
EXAMINATION TYPE: US chest DATE OF EXAM: 04/27/2020 COMPARISON: NONE CLINICAL HISTORY: 69-year-old female Markings for thoracentesis by pulmonary staff. TECHNIQUE: Targeted ultrasound of the posterior lower bilateral hemithoraces FINDINGS: EXAM MEASUREMENTS: Right: No significant effusion. Left Pleural Effusion pocket size: 1.9 cm Left skin surface to fluid distance: 4.1 cm Right NOT side marked for possible thoracentesis outside the dept. Left NOT side marked for possible thoracentesis outside the dept due to debris and lung visualized in fluid pocket. Pulmonologists are able to review the images in the patient?s EMR. IMPRESSIONS: 1. Small left effusion possibly containing some debris and interposed lung. Marking not performed. 2. No right effusion.
--- NOTE | 2020-04-27 11:26 | P.PN ---
Subjective Progress Note Date: 04/27/20 Principal diagnosis: Acute on chronic hypoxic and hypercapnic respiratory failure requiring intubation and mechanical ventilation This is a 69-year-old female familiar to my service, known to have history of severe COPD, chronic hypoxic and chronic hypercapnic respiratory failure. Hypertension, fibromyalgia, tobacco dependence syndrome, patient was recently inpatient at [facility], and I saw on consultation. After few days of hospitalization, patient was discharged home on bronchodilators and steroids. On April 11, patient presented to the ER at [facility] with mental status change, she was apparently uncooperative and yelling in the ER. It was felt that the patient may have developed steroids induced psychosis. Her metabolic profile was basically unremarkable. Patient received Ativan and Geodon while in the ER, and she was sent to [facility] for psychiatric evaluation and admission. However when she was in the ER, patient was noted to be extremely difficult to arouse, and she developed what seemed to be a picture of acute hypercapnic respiratory failure. Patient was intubated by the ER physician, and she was sent to the intensive care unit. I saw her this morning, discontinued all her sedatives, awaken the patient, given a trial of weaning with a pressure support and CPAP, and after half an hour, I recommended extubating the patient to BiPAP. Patient was extubated uneventfully. Reevaluated today on 04/25/20, patient remains in the ICU, off mechanical ventilation, but she remains on BiPAP with IPAP of 16 and EPAP of 4, FiO2 is 35%. Chest x-ray showed no evidence of pneumonia, there is left hemidiaphragm elevation. Patient is very comfortable, and does not seem to be in any distress. CBC is relatively normal electrolytes are relatively normal except for low sodium which is chronic 131. Remains on bronchodilators for underlying COPD. Patient was reevaluated today on 04/26/20, remains in the ICU, elevated extubation 2 days ago. However she is intermittently on BiPAP especially at [facility]. Presently off BiPAP, she is doing well, she is on nasal cannula, and she remains marginal, her chest x-ray continues to show left hemidiaphragm elevation with atelectasis, doubt pneumonia but is not entirely ruled out. All labs including CBC and basic metabolic profile were reviewed and noted to be normal bicarb is 38 indicative of severe underlying respiratory acidosis with metabolic compensation On 04/27/2020 patient seen in follow-up in the intensive care unit, she is awake and alert, in no acute distress, she is currently on 2 L of oxygen pulse ox of 93-94%, and apparently she did wear BiPAP last night. Occasional congested cough, no significant phlegm production, lung sounds reveal a few scattered rhonchi, no significant wheezing. She is currently on doxycycline for antibioti c coverage, breathing treatments, not on any steroids. She was seen by psychiatric services, she is receiving Haldol on the scheduled an as-needed basis, her CAM-ICU has been negative. Today's chest x-ray showed moderate left pleural effusion with adjacent atelectasis and/or consolidation, ultrasound the chest revealed only 1.9 cm pocket on the left, and no significant effusion on the right. No leukocytosis on today's labs, white blood cell count is 4.6, hemoglobin is 12.5, serum sodium is 129, potassium is 3.0, chloride is 86, CO2 is 37, BUN is 15, creatinine is 0.36. Objective - Vital Signs Vital signs: Vital Signs Temp 99 F 04/27/20 04:00 Pulse 78 04/27/20 09:00 Resp 17 04/27/20 09:00 BP 135/59 04/27/20 09:00 Pulse Ox 93 L 04/27/20 09:00 Intake & Output 04/26/20 04/27/20 04/27/20 18:59 06:59 18:59 Intake Total 200 620 420 Output Total 840 610 200 Balance -640 10 220 Weight 94.8 kg Intake: IV 200 260 20 .9NS 200 260 20 Oral 360 400 Output: Urine 840 610 200 Other: Voiding Method Indwelling Catheter Indwelling Catheter Indwelling Catheter - Exam GENERAL EXAM: Alert, very pleasant, 69-year-old white female, on 2 L of oxygen the pulse ox 93-94% comfortable in no apparent distress. HEAD: Normocephalic/atraumatic. EYES: Normal reaction of pupils, equal size. Conjunctiva pink, sclera white. NOSE: Clear with pink turbinates. THROAT: No erythema or exudates. NECK: No masses, no JVD, no thyroid enlargement, no adenopathy. CHEST: No chest wall deformity. Symmetrical expansion. LUNGS: Equal air entry with a few rhonchi, but no wheeze, rhonchi or dullness. CVS: Regular rate and rhythm, normal S1 and S2, no gallops, no murmurs, no rubs ABDOMEN: Soft, nontender. No hepatosplenomegaly, normal bowel sounds, no guarding or rigidity. EXTREMITIES: No clubbing, no edema, no cyanosis, 2+ pulses and upper and lower extremities. MUSCULOSKELETAL: Muscle strength and tone normal. SPINE: No scoliosis or deformity SKIN: No rashes CENTRAL NERVOUS SYSTEM: Alert and oriented -3. No focal deficits, tone is normal in all 4 extremities. PSYCHIATRIC: Alert and oriented -3. Appropriate affect. Intact judgment and insight. - Labs CBC & Chem 7: 04/27/20 03:55 04/27/20 03:55 Labs: Abnormal Lab Results - Last 24 Hours (Table) 04/26/20 04/27/20 04/27/20 Range/Units 11:35 03:55 03:55 Plt Count 148 L (150-450) k/uL Lymphocytes # 0.5 L (1.0-4.8) k/uL Sodium 129 L (137-145) mmol/L Potassium 3.0 L (3.5-5.1) mmol/L Chloride 86 L (98-107) mmol/L Carbon Dioxide 37 H (22-30) mmol/L Creatinine 0.36 L (0.52-1.04) mg/dL Glucose 128 H (74-99) mg/dL POC Glucose (mg/dL) 144 H (75-99) mg/dL Microbiology - Last 24 Hours (Table) 04/24/20 03:35 Gram Stain - Final Sputum Sputum Culture - Final Kateryna sp,not albicans/galbr Assessment and Plan Plan: Assessment: #1. Acute on chronic hypoxic and hypercapnic respiratory failure requiring intubation and mechanical ventilation likely exacerbated by Ativan and Geodon administered for acute psychosis, patient was intubated on 04/23/2020 and successfully weaned and extubated on 04/24/2020 #2. Acute psychosis, could be metabolic in nature or could be related to steroids, resolved #3. Acute exacerbation of chronic obstructive pulmonary disease, improving #4. Benign essential hypertension #5. Chronic hyponatremia #6. Fibromyalgia #7. Remote history of tobacco use and dependence Plan: Continue current medical treatment, increase activity as tolerated, may use BiPAP as needed and at bedtime. Patient is doing well, provided incentive spirometry, encouraged to deep breathe and cough, today's chest x-ray has been reviewed showing moderate left-sided pleural effusion with adjacent atelectasis and/or consolidation, however ultrasound the chest did not show a sizable pocket for drainage. Continue current antibiotics, patient has been afebrile, mentation has improved. She is stable for transfer to medical surgical bed with telemetry. I performed a history & physical examination of the patient and discussed their management with my nurse practitioner, Tania Day. I reviewed the nurse practitioner's note and agree with the documented findings and plan of care. Lung sounds are positive for diminished breath sounds. The findings and the impression was discussed with the patient. I attest to the documentation by the nurse practitioner. Time with Patient: Less than 30
--- NOTE | 2020-04-27 13:21 | P.PN ---
Progress Note - Text Progress Note Date: 04/27/20 Psychiatrist Note: I reviewed medical record ,I interviewed patient and I talked with her , Interval History: Patient was seen today for follow-up and was sitting in her chair by the bed. Patient stated that she is doing better and hope to be discharged tomorrow,she stated that "I was not myself when I took steroid",currently she denies any psychotic features ,denies any suicidal or homicidal ideation,pleasant ,bright affect and able to recall previous event prior to her admission Mental Status Exam: General Appearance: Patient appears to be overweight, stated age is alert and cooperative Patient hygiene and grooming are good Behavior: Patient is seated without any agitated behavior. Speech: Patient's speech is fluent and coherent Mood/Affect: Patient reports mood is "good", affect is congruent and constricted. Suicidality/Homicidality: Patient denies having any homicidal ideation intent or plan. Denies any suicidal ideations intent or plan Perceptions: She denies any delusion or hallucinations Though content/process: thought process is linear and goal-directed. Memory and concentration: AOX3, grossly intact for the purposes of this session. Judgment and insight: good Assessment Steroid induced psychosis ,resolved Plan: Decrease Haldol 2 mg HS for 1 week then discontinue Patient can be discharged home Psychiatry signing off
--- NOTE | 2020-04-27 13:56 | P.PN ---
Subjective Progress Note Date: 04/27/20 HISTORY OF PRESENT ILLNESS This is a 69-year-old female patient of Dr. Shirley and Dr. Mayberry with past medical history of COPD, chronic hypoxic respiratory failure on home O2 at night, hypertension, chronic hyponatremia previously seen by endocrinology, gastroesophageal reflux disease, fibromyalgia, remote history of tobacco use. Patient had 2 recent hospitalizations at [facility]. The first one was for COPD exacerbation and hyponatremia and was discharged home with a sodium of 129 and prednisone tapering dose and was also started on amlodipine, increase dose of Coreg and increase clonidine. Patient did not have any antibiotics prescribed. Patient had tolerated IV Solu-Medrol in the hospital without any mental status changes. She was discharged home in stable condition. She was rehospitalized on April 19 through April 21 which time she was treated for mental status changes possibly side effect of prednisone. Patient was very emotional alternating between laughing at times and crying. Drug screen and alcohol screen were negative. Chest x-ray showed no acute findings and CAT scan of the brain showed mild atrophy and chronic small vessel ischemic change. She did have insomnia at night and was given Benadryl. Patient continued to have labile effect reflecting possible pseudobulbar affect and she was provided prescription for Neudexta 20-10 mg at bedtime. Her sodium at the time of discharge was 132 patient was discharged home in stable condition. Previous to that, patient was hospitalized for COPD exacerbation and hyponatrem ia and was discharged home with a sodium of 129 and prednisone tapering dose. Plan patient presented to [facility] on April 23 for mental status changes that persisted and did not improve after discharge. Patient was actually yelling and very uncooperative. There was suspected steroid-induced psychosis. CBC was unremarkable. Sodium 132, potassium 3.3, chloride 91, CO2 31, BUN 18 and creatinine 0.8. ALT 66. Troponin 0.017. Magnesium 1.51. Patient was given Ativan and Geodon IM injections for sedation and started on IV fluids. There was concern the patient required geriatric psychiatric evaluation and patient was transferred to [facility] emergency center for evaluation. While in the emergency center at [facility], patient was very sedated thought to be related to the Geodon and Ativan given at [facility] and patient developed increasing poor respiratory drive requiring intubation which was done in the emergency center. Urine drug screen was positive for benzodiazepines. Urinalysis negative for infection. Lactic acid 0.6, ammonia level 30, salicylate level less than 1, alcohol level less than 10, and acetaminophen level less than 10. EKG is sinus rhythm with no acute ST-T wave changes. CAT scan of the brain showed hypodensity anterior right internal capsule consistent with small vessel ischemia. No hemorrhage. Patient was then transferred to the intensive care unit maintained on mechanical ventilation and consult requested with pulmonary medicine. We have subsequently added consult for psychiatry. At the time of evaluation, patient is awake and alert and able to follow simple commands. She is intubated and on mechanical ventilation with tidal volume 450, FiO2 40 and PEEP of 5. Plan is for extubation today. Repeat chest x-ray reveals similar volume loss and some patchy opacities at the base, probable atelectasis. Correlate to exclude underlying infiltrate. 04/25: Patient has been successfully extubated and is on BiPAP. Once off BiPAP, patient has significant mental status changes and his placed back on. She has been seen by psychiatry and neurology. Psychiatry has recommended avoiding use of narcotics, steroids and ELEVATOR TENDER sedatives. Recommend Haldol 2 mg twice daily scheduled, melatonin at bedtime and Haldol added as needed for agitation and psychosis. Patient was seen by Dr. 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 He recommends either aspirin 81 mg daily or Plavix and Lipitor for old stroke and secondary stroke prophylaxis. Continue thiamine. Patient apparently is a drinker every day but is unable to provide any information today it due to encephalopathy. 04/26: Patient remains in the ICU and is awake and alert. She is currently on O2 by nasal cannula. Patient is very concerned that she wants Dr. Mayberry to find her a new doctor because Dr. Shirley "doesn't give her a fuzzy feeling." Her last visit was a by telemedicine. Referred patient to discuss with Dr. Mayberry. She is not having any shortness of breath and able to speak in full sentences. Patient does state that she drinks alcohol but is unable to give or is evasive about questions regarding details. Patient has been afebrile, heart rate 90, blood pressure 144/64, pulse ox 91% on 2 L nasal cannula. Blood sugars running between 100 1962. WBC 5.8, hemoglobin 12.4, platelet count 140. Sodium 130, potassium 3.5, chloride 89, CO2 30, BUN 22 and creatinine 0.37. 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 Repeat chest x-ray reveals mild pulmonary vascular congestion. Left pleural effusion with adjacent atelectasis or consolidation. Anticipate patient will be cleared to move out of the intensive care unit. PT and OT to start working with the patient and child welfare caseworker to make discharge planning. 04/27: Patient remains in the intensive care unit and patient is less confused today. She is currently on O2 by nasal cannula and BiPAP at night. Repeat chest x-ray reveals continued moderate left pleural effusion with adjacent atelectasis and/or consolidations. Ultrasound of the chest reveals small left effusion possibly containing some debris and interposed lung. [facility] not pe rformed. This was 1.9 cm. tient has been afebrile, heart rate 70, blood pressure 135/59, pulse ox 93% on 2 L nasal cannula. 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 WBC 4.6, hemoglobin 12.5, sodium 129, potassium 3.0, chloride 86, CO2 37, BUN 15 creatinine 0.36. Patient has been cleared by pulmonary for tr ansferred to [facility] with telemetry. Patient has been seen by psychiatry and recommended decreasing Haldol to 2 mg at bedtime for one week then discontinue. Patient is cleared for discharge home and psychiatry is signing off the case. COVID-19 testing added. Daily catheter will be removed. REVIEW OF SYSTEMS Constitutional: No fever, no chills, no night sweats. No weight change. Report weakness, fatigue or lethargy. No daytime sleepiness. EENT: No headache. No blurred vision or double vision, no loss of vision. No loss of Hearing, no ringing in the ears, no dizziness. No nasal drainage or congestion. No epistaxis. No sore throat. Lungs: No shortness of breath, cough, no sputum production. No wheezing. Cardiovascular: No chest pain, no lower extremity edema. No palpitations. No paroxysmal nocturnal dyspnea. No orthopnea. No lightheadedness or dizziness. No syncopal episodes. Abdominal: No abdominal pain. No nausea, vomiting. No diarrhea. No c onstipation. No bloody or tarry stools.. No loss of appetite. Genitourinary: No dysuria, increased frequency, urgency. No urinary retention. Musculoskeletal: No myalgias. No muscle weakness, no gait dysfunction, no frequent falls. No back pain. No neck pain. Integumentary: No wounds, no lesions. No rash or pruritus. No unusual bruising. No change in hair or nails. Neurologic: No aphasia. No facial drop. mild confusion improved. No head injury. No headache. No paralysis. No paresthesia. Psychiatric: No depression. No anxiety. No mood swings. Endocrine: No abnormal blood sugars. No weight change. No excessive sweating or thirst. No cold intolerance. PHYSICAL EXAMINATION Gen: This is 69-year-old female. Patient appears to be in no acute distress. No respiratory distress noted. HEENT: Head is atraumatic, normocephalic. Pupils equal, round. Sclerae is anicteric. NECK: Supple. No JVD. No lymphadenopathy. No thyromegaly. LUNGS: Diminished breath sounds bilaterally. No wheezes or rhonchi. No intercostal retractions. HEART: Regular rate and rhythm. No murmur. ABDOMEN: Soft. Bowel sounds are present. No masses. No tenderness. Daily catheter draining clear teresa urine. EXTREMITIES: No pedal edema. No calf tenderness. NEUROLOGICAL: Patient is awake to person and place. Mild confusion noted but improved from yesterday. She is able to follow commands. ASSESSMENT AND PLAN 1. Acute psychosis and metabolic encephalopathy starting on admission April 20 at [facility], thought to be steroid induced, etiology not clear as patient has not had psychosis from steroids in the past. Also history of alcohol abuse, not known at time of admission. This may be contributing to psychosis as well. Patient was discharged on Neudexta with worsening psychosis. Consults with neurology and psychiatry appreciated. Continue Haldol 2 mg twice daily and IM as needed.psychiatry recommends Haldol 2 mg at bedtime for 1 week. Daily catheter will be removed. Transferred to [facility] floor with telemetry. 2. Acute hypoxic respiratory failure secondary to loss of respiratory drive from Geodon and Ativan, required intubation and mechanical ventilation. Patient has been successfully extubated. Consult with Dr. Mayberry appreciated. Patient is currently on O2 by nasal cannula. 3. COPD without exacerbation. Continue DuoNeb treatments 4 times daily. 4. Chronic hypoxic respiratory failure on home O2 at night. 5. Hypertension. Continue amlodipine 10 mg daily, Coreg 25 mg twice daily, clonidine 0.1 mg twice daily, Zestoretic 20/12.5 mg daily. 6. Chronic hyponatremia, stable. 7. Gastroesophageal reflux disease. Continue omeprazole or equivalent. 8. Fibromyalgia. 9. Remote history of tobacco use and dependence. 10. DVT prophylaxis. Lovenox subcu daily. Discharge plan: To be determined. most likely home PT and OT evaluation. Impression and plan of care have been directed as dictated by the signing physician. Kassi Sharpe nurse practitioner acting as scribe for signing physician. Objective - Vital Signs Vital signs: Vital Signs Temp 99 F 04/27/20 04:00 Pulse 84 04/27/20 07:50 Resp 28 H 04/27/20 07:00 BP 143/74 04/27/20 07:00 Pulse Ox 93 L 04/27/20 07:00 Intake & Output 04/26/20 04/27/20 04/27/20 18:59 06:59 18:59 Intake Total 200 620 Output Total 840 610 Balance -640 10 Weight 94.8 kg Intake: IV 200 260 .9NS 200 260 Oral 360 Output: Urine 840 610 Other: Voiding Method Indwelling Catheter Indwelling Catheter - Labs CBC & Chem 7: 04/27/20 03:55 04/27/20 03:55 Labs: Abnormal Lab Results - Last 24 Hours (Table) 04/26/20 04/27/20 04/27/20 Range/Units 11:35 03:55 03:55 Plt Count 148 L (150-450) k/uL Lymphocytes # 0.5 L (1.0-4.8) k/uL Sodium 129 L (137-145) mmol/L Potassium 3.0 L (3.5-5.1) mmol/L Chloride 86 L (98-107) mmol/L Carbon Dioxide 37 H (22-30) mmol/L Creatinine 0.36 L (0.52-1.04) mg/dL Glucose 128 H (74-99) mg/dL POC Glucose (mg/dL) 144 H (75-99) mg/dL Microbiology - Last 24 Hours (Table) 04/24/20 03:35 Gram Stain - Preliminary Sputum Sputum Culture - Preliminary Yeast species
[2020-04-27] MEDS: MELATONIN 3 MG TABLET PO SCH (23:42)
[2020-04-28 02:37] VITALS: RESP 17
[2020-04-28] MEDS: CALCIUM CARBONATE 500 MG CHEWABLE PO PRN (05:13)
--- NOTE | 2020-04-28 07:13 | XR ---
EXAMINATION TYPE: XR chest 1V portable DATE OF EXAM: 04/28/2020 CLINICAL HISTORY: Difficulty breathing progress study. TECHNIQUE: Single AP portable upright view of the chest is obtained. COMPARISON: Chest x-ray from one day earlier and older studies. FINDINGS: Cardiac silhouette size stable and mildly enlarged with persistent left basilar opacity on background chronic parenchymal change. Perhaps slight interval improvement in the more central left basilar opacity from most recent prior. Right lung remains clear. Osseous structures are intact. Athe rosclerotic change aortic knob redemonstrated. IMPRESSION: Chronic parenchymal change and mild cardiomegaly with persistent small left pleural effu anastasiya and associated left basilar acute atelectasis and/or infiltrate. Slight interval improvement in left basilar findings noted from most recent x-ray.
[2020-04-28] MEDS: IPRATROPIUM-ALBUTEROL 3 ML NEB INHALATION SCH (07:34)
[2020-04-28 07:49] VITALS: PULSE 74; TEMP 98.2
--- NOTE | 2020-04-28 07:55 | P.PN ---
Subjective Progress Note Date: 04/28/20 Principal diagnosis: Acute on chronic hypoxic and hypercapnic respiratory failure requiring intubation and mechanical ventilation This is a 69-year-old female familiar to my service, known to have history of severe COPD, chronic hypoxic and chronic hypercapnic respiratory failure. Hypertension, fibromyalgia, tobacco dependence syndrome, patient was recently inpatient at [facility], and I saw on consultation. After few days of hospitalization, patient was discharged home on bronchodilators and steroids. On April 11, patient presented to the ER at [facility] with mental status change, she was apparently uncooperative and yelling in the ER. It was felt that the patient may have developed steroids induced psychosis. Her metabolic profile was basically unremarkable. Patient received Ativan and Geodon while in the ER, and she was sent to [facility] for psychiatric evaluation and admission. However when she was in the ER, patient was noted to be extremely difficult to arouse, and she developed what seemed to be a picture of acute hypercapnic respiratory failure. Patient was intubated by the ER physician, and she was sent to the intensive care unit. I saw her this morning, discontinued all her sedatives, awaken the patient, given a trial of weaning with a pressure support and CPAP, and after half an hour, I recommended extubating the patient to BiPAP. Patient was extubated uneventfully. Reevaluated today on 04/25/20, patient remains in the ICU, off mechanical ventilation, but she remains on BiPAP with IPAP of 16 and EPAP of 4, FiO2 is 35%. Chest x-ray showed no evidence of pneumonia, there is left hemidiaphragm elevation. Patient is very comfortable, and does not seem to be in any distress. CBC is relatively normal electrolytes are relatively normal except for low sodium which is chronic 131. Remains on bronchodilators for underlying COPD. Patient was reevaluated today on 04/26/20, remains in the ICU, elevated extubation 2 days ago. However she is intermittently on Bi[facility]AP [facility]. Presently off BiPAP, she is doing well, she is on nasal cannula, and she remains marginal, her chest x-ray continues to show left hemidiaphragm elevation with atelectasis, doubt pneumonia but is not entirely ruled out. All labs including CBC and basic metabolic profile were reviewed and noted to be normal bicarb is 38 indicative of severe underlying respiratory acidosis with metabolic compensation On 04/27/2020 patient seen in follow-up in the intensive care unit, she is awake and alert, in no acute distress, she is currently on 2 L of oxygen pulse ox of 93-94%, and apparently she did wear BiPAP last night. Occasional congested cough, no significant phlegm production, lung sounds reveal a few scattered rhonchi, no significant wheezing. She is currently on doxycycline for antibioti c coverage, breathing treatments, not on any steroids. She was seen by psychiatric services, she is receiving Haldol on the scheduled an as-needed basis, her CAM-ICU has been negative. Today's chest x-ray showed moderate left pleural effusion with adjacent atelectasis and/or consolidation, ultrasound the chest revealed only 1.9 cm pocket on the left, and no significant effusion on the right. No leukocytosis on today's labs, white blood cell count is 4.6, hemoglobin is 12.5, serum sodium is 129, potassium is 3.0, chloride is 86, CO2 is 37, BUN is 15, creatinine is 0.36. On 04/28/2020 patient seen in follow-up in the intensive care unit. She is awake and alert, in no acute distress, no confusion overnight, she denies any distress, no shortness of breath, currently on 2 L of oxygen is 95%, no fever or chills, hemodynamically stable. Lung sounds are clear, no rhonchi or wheezing. Patient has been ambulating and tolerated activity well, no acute events overnight, no new labs today.follow-up chest x-ray this morning shows chronic bronchial changes and mild cardiomegaly and small left pleural effusion and left basilar atelectasis. And there is been slight interval improvement in the left basilar findings. Objective - Vital Signs Vital signs: Vital Signs Temp 98.2 F 04/28/20 06:15 Pulse 76 04/28/20 07:44 Resp 17 04/28/20 06:15 BP 134/62 04/28/20 06:15 Pulse Ox 95 04/28/20 06:15 Intake & Output 04/27/20 04/28/20 04/28/20 18:59 06:59 18:59 Intake Total 420 600 Output Total 200 Balance 220 600 Intake: IV 20 .9NS 20 Oral 400 600 Output: Urine 200 Other: Voiding Method Indwelling Catheter Toilet # Voids 2 # Bowel Movements 1 - Exam GENERAL EXAM: Alert, very pleasant, 69-year-old white female, on 2 L of oxygen the pulse ox 94-95% comfortable in no apparent distress. HEAD: Normocephalic/atraumatic. EYES: Normal reaction of pupils, equal size. Conjunctiva pink, sclera white. NOSE: Clear with pink turbinates. THROAT: No erythema or exudates. NECK: No masses, no JVD, no thyroid enlargement, no adenopathy. CHEST: No chest wall deformity. Symmetrical expansion. LUNGS: Equal air entry with a few rhonchi, but no wheeze, rhonchi or dullness. CVS: Regular rate and rhythm, normal S1 and S2, no gallops, no murmurs, no rubs ABDOMEN: Soft, nontender. No hepatosplenomegaly, normal bowel sounds, no guarding or rigidity. EXTREMITIES: No clubbing, no edema, no cyanosis, 2+ pulses and upper and lower extremities. MUSCULOSKELETAL: Muscle strength and tone normal. SPINE: No scoliosis or deformity SKIN: No rashes CENTRAL NERVOUS SYSTEM: Alert and oriented -3. No focal deficits, tone is normal in all 4 extremities. PSYCHIATRIC: Alert and oriented -3. Appropriate affect. Intact judgment and insight. - Labs CBC & Chem 7: 04/27/20 03:55 04/27/20 03:55 Labs: Microbiology - Last 24 Hours (Table) 04/24/20 03:35 Gram Stain - Final Sputum Sputum Culture - Final Kateryna sp,not albicans/galbr Assessment and Plan Plan: Assessment: #1. Acute on chronic hypoxic and hypercapnic respiratory failure requiring intubation and mechanical ventilation likely exacerbated by Ativan and Geodon administered for acute psychosis, patient was intubated on 04/23/2020 and successfully weaned and extubated on 04/24/2020 #2. Acute psychosis, could be metabolic in nature or could be related to steroids, resolved #3. Acute exacerbation of chronic obstructive pulmonary disease, improving #4. Benign essential hypertension #5. Chronic hyponatremia #6. Fibromyalgia #7. Remote history of tobacco use and dependence Plan: Patient has remained stable in the last 24 hours, no acute events, tolerating ambulation, no worsening dyspnea, lung sounds are clear. Increase activity as tolerated, continue current medical treatment, from pulmonary perspective she stable for discharge home today, she has home oxygen, she has nebulized treatments at home, she will need outpatient follow-up with Dr. Lu in the office in 7-10 days. I performed a history & physical examination of the patient and discussed their management with my nurse practitioner, Tania Day. I reviewed the nurse practitioner's note and agree with the documented findings and plan of care. Lung sounds are positive for diminished breath sounds. The findings and the impression was discussed with the patient. I attest to the documentation by the nurse practitioner. Time with Patient: Less than 30
[2020-04-28] MEDS: ENOXAPARIN 40 MG/0.4 ML SYRINGE SQ SCH (08:18)
[2020-04-28] MEDS: PANTOPRAZOLE 40 MG/10 ML VIAL IV SCH (08:18)
[2020-04-28] MEDS: DOXYCYCLINE 100 MG CAP PO SCH (08:18)
[2020-04-28] MEDS: cloNIDine HCL 0.1 MG TAB PO SCH (08:19)
[2020-04-28] MEDS: carvediloL 12.5 MG TAB PO SCH (08:19)
[2020-04-28] MEDS: amLODIPine 10 MG TAB PO SCH (09:12)
[2020-04-28] MEDS: LISINOPRIL-HCTZ 20-12.5 MG 1 EACH TAB PO SCH (09:12)
[2020-04-28 09:14] VITALS: BP 111/53
--- NOTE | 2020-04-28 10:04 | P.DS ---
Providers Date of admission: 04/23/20 22:06 Expected date of discharge: 04/28/20 Attending physician: Glen Cruz Consults: 04/23/20 22:03 Consult Physician Routine Consulting Provider: Pacheco Conti Consult Reason/Comments: icu Do you want consulting provider notified?: Yes 04/24/20 10:21 Consult Physician Routine Consulting Provider: Nilda Allred Consult Reason/Comments: pyschosis Do you want consulting provider notified?: Yes 04/24/20 10:58 Consult Physician Routine Consulting Provider: Marquise Pineda Consult Reason/Comments: psychosis, poss steroid-induced?? Do you want consulting provider notified?: Yes Primary care physician: Lukasz Shirley [facility] Course: HISTORY OF PRESENT ILLNESS This is a 69-year-old female patient of Dr. Shirley and Dr. Mayberry with past medical history of COPD, chronic hypoxic respiratory failure on home O2 at night, hypertension, chronic hyponatremia previously seen by endocrinology, gastroesophageal reflux disease, fibromyalgia, remote history of tobacco use. Patient had 2 recent hospitalizations at [facility]. The first one was for COPD exacerbation and hyponatremia and was discharged home with a sodium of 129 and prednisone tapering dose and was also started on amlodipine, increase dose of Coreg and increase clonidine. Patient did not have any antibiotics prescribed. Patient had tolerated IV Solu-Medrol in the hospital without any mental status changes. She was discharged home in stable condition. She was rehospitalized on April 19 through April 21 which time she was treated for mental status changes possibly side effect of prednisone. Patient was very emotional alternating between laughing at times and crying. Drug screen and alcohol screen were negative. Chest x-ray showed no acute findings and CAT scan of the brain showed mild atrophy and chronic small vessel ischemic change. She did have insomnia at night and was given Benadryl. Patient continued to have labile effect reflecting possible pseudobulbar affect and she was provided prescription for Neudexta 20-10 mg at bedtime. Her sodium at the time of discharge was 132 patient was discharged home in stable condition. Previous to that, patient was hospitalized for COPD exacerbation and hyponatremia and was discharged home with a sodium of 129 and prednisone tapering dose. Plan patient presented to [facility] on April 23 for mental status changes that persisted and did not improve after discharge. Patient was actually yelling and very uncooperative. There was suspected steroid-induced psychosis. CBC was unremarkable. Sodium 132, potassium 3.3, chloride 91, CO2 31, BUN 18 and creatinine 0.8. ALT 66. Troponin 0.017. Magnesium 1.51. Patient was given Ativan and Geodon IM injections for sedation and started on IV fluids. There was concern the patient required geriatric psychiatric evaluation and patient was transferred to [facility] emergency center for evaluation. While in the emergency center at [facility], patient was very sedated thought to be related to the Geodon and Ativan given at [facility] and patient developed increasing poor respiratory drive requiring intubation which was done in the emergency center. Urine drug screen was positive for benzodiazepines. Urinalysis negative for infection. Lactic acid 0.6, ammonia level 30, salicylate level less than 1, alcohol level less than 10, and acetaminophen level less than 10. EKG is sinus rhythm with no acute ST-T wave changes. CAT scan of the brain showed hypodensity anterior right internal capsule consistent with small vessel ischemia. No hemorrhage. Patient was then transferred to the intensive care unit maintained on mechanical ventilation and consult requested with pulmonary medicine. We have subsequently added consult for psychiatry. At the time of evaluation, patient is awake and alert and able to follow simple commands. She is intubated and on mechanical ventilation with tidal volume 450, FiO2 40 and PEEP of 5. Plan is for extubation today. Repeat chest x-ray reveals similar volume loss and some patchy opacities at the base, probable atelectasis. Correlate to exclude underlying infiltrate. 04/25: Patient has been successfully extubated and is on BiPAP. Once off BiPAP, patient has significant mental status changes and his placed back on. She has been seen by psychiatry and neurology. Psychiatry has recommended avoiding use of narcotics, steroids and HOG COUNTER sedatives. Recommend Haldol 2 mg twice daily scheduled, melatonin at bedtime and Haldol added as needed for agitation and psychosis. Patient was seen by Dr. 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 He recommends either aspirin 81 mg daily or Plavix and Lipitor for old stroke and secondary stroke prophylaxis. Continue thiamine. Patient apparently is a drinker every day but is unable to provide any information today it due to encephalopathy. 04/26: Patient remains in the ICU and is awake and alert. She is currently on O2 by nasal cannula. Patient is very concerned that she wants Dr. Mayberry to find her a new doctor because Dr. Shirley "doesn't give her a fuzzy feeling." Her last visit was a by telemedicine. Referred patient to discuss with Dr. Mayberry. She is not having any shortness of breath and able to speak in full sentences. Patient does state that she drinks alcohol but is unable to give or is evasive about questions regarding details. Patient has been afebrile, heart rate 90, blood pressure 144/64, pulse ox 91% on 2 L nasal cannula. Blood sugars running between 100 1962. WBC 5.8, hemoglobin 12.4, platelet count 140. Sodium 130, potassium 3.5, chloride 89, CO2 30, BUN 22 and creatinine 0.37. engine monitor has been a sinus rhythm. Repeat chest x-ray reveals mild pulmonary vascular congestion. Left pleural effusion with adjacent atelectasis or consolidation. Anticipate patient will be cleared to move out of the intensive care unit. PT and OT to start working with the patient and case packer to make discharge planning. 04/27: Patient remains in the intensive care unit and patient is less confused today. She is currently on O2 by nasal cannula and BiPAP at night. Repeat chest x-ray reveals continued moderate left pleural effusion with adjacent atelectasis and/or consolidations. Ultrasound of the chest reveals small left effusion possibly containing some debris and interposed lung. [facility] not performed. This was 1.9 cm. tient has been afebrile, heart rate 70, blood pressure 135/59, pulse ox 93% on 2 L nasal cannula. engine monitor sinus rhythm. WBC 4.6, hemoglobin 12.5, sodium 129, potassium 3.0, chloride 86, CO2 37, BUN 15 creatinine 0.36. Patient has been cleared by pulmonary for transferred to [facility] with telemetry. Patient has been seen by psychiatry and recommended decreasing Haldol to 2 mg at bedtime for one week then discontinue. Patient is cleared for discharge home and psychiatry is signing off the case. COVID-19 testing added. Daily catheter will be removed. 04/28: Patient remains in intensive care unit was unable to obtain a bed outside. She continues to have improvement of her mental status and appears to be back to baseline. She denies having any shortness of breath. She is currently on oxygen at 2 L nasal cannula with pulse ox of 95%, afebrile, blood pressure 104/47, heart rate 76. Repeat chest x-ray reveals chronic proximal change and mild cardiomegaly with persistent small left pleural effusion and associated left basilar acute atelectasis and/or infiltrate. Slight interval improvement in left basilar findings. Patient has been cleared by Dr. Pineda for discharge home. Patient has been advised to avoid steroids in the outpatient setting and discussed thoroughly with her physicians if steroids are ordered during a hospitalization. Patient be discharged home today in stable condition. ASSESSMENT AND PLAN 1. Acute psychosis and metabolic encephalopathy starting on admission April 20 at [facility], steroid induced 2. Acute hypoxic respiratory failure secondary to loss of respiratory drive from Geodon and Ativan, required intubation and mechanical ventilation. 3. COPD without exacerbation. 4. Chronic hypoxic respiratory failure on home O2 at night. 5. Hypertension. 6. Chronic hyponatremia, stable. 7. Gastroesophageal reflux disease. 8. Fibromyalgia. 9. Remote history of tobacco use and dependence. Discharge plan: Home with [facility]. Impression and plan of care have been directed as dictated by the signing physician. Kassi Sharpe nurse practitioner acting as scribe for signing physician. Patient Condition at Discharge: Good Plan - Discharge Summary Discharge Rx Participant: Yes New Discharge Prescriptions: New haloperidoL [Haldol] 2 mg PO HS #6 tab Doxycycline [Vibramycin] 100 mg PO BID #10 cap Continue Lisinopril-Hctz 20-12.5 mg [Zestoretic 20-12.5] 1 tab PO DAILY cloNIDine HCL [Catapres] 0.1 mg PO BID amLODIPine [Norvasc] 10 mg PO DAILY Carvedilol [Coreg] 25 mg PO BID Omeprazole 20 mg PO BID Discharge Medication List Carvedilol [Coreg] 25 mg PO BID 04/23/20 [History] Lisinopril-Hctz 20-12.5 mg [Zestoretic 20-12.5] 1 tab PO DAILY 04/23/20 [History] Omeprazole 20 mg PO BID 04/23/20 [History] amLODIPine [Norvasc] 10 mg PO DAILY 04/23/20 [History] cloNIDine HCL [Catapres] 0.1 mg PO BID 04/23/20 [History] Doxycycline [Vibramycin] 100 mg PO BID #10 cap 04/28/20 [Rx] haloperidoL [Haldol] 2 mg PO HS #6 tab 04/28/20 [Rx] Follow up Appointment(s)/Referral(s): Justa Mayberry MD [STAFF PHYSICIAN] - 1 Week [facility], [NON-STAFF] - 1-2 Days Lukasz Shirley MD [Primary Care Provider] - 1-2 Days Discharge Disposition: HOME WITH HOME HEALTH SERVICES
[2020-04-29 08:53] LABS: ABG PCO2 76 mmHg (35-45)
== END 2020-04-28 11:27 | disposition home health service (06) | DRG 208 ==
LOC: EC 10:16 → 2SICU 22:06
PROVIDERS: ADMIT Internal Medicine Geriatric Medicine; ATTEND Internal Medicine Geriatric Medicine
PROC: 5A1935Z Respiratory Ventilation, Less than 24 Consecutive Hours (ICD-10-PCS; principal; 2020-04-23)
PROC: 5A09457 Assistance with Respiratory Ventilation, 24-96 Consecutive Hours, Continuous Positive Airway Pressure (ICD-10-PCS; principal; 2020-04-23)
PROC: 0D9670Z Drainage of Stomach with Drainage Device, Via Natural or Artificial Opening (ICD-10-PCS; 2020-04-23)
DX: J96.21 Acute and chronic respiratory failure with hypoxia (principal); G93.41 Metabolic encephalopathy; E87.1 Hypo-osmolality and hyponatremia; E87.2 Acidosis; J44.1 Chronic obstructive pulmonary disease with (acute) exacerbation; J90 Pleural effusion, not elsewhere classified; F23 Brief psychotic disorder; J98.11 Atelectasis; J96.22 Acute and chronic respiratory failure with hypercapnia; J98.6 Disorders of diaphragm; G47.00 Insomnia, unspecified; I10 Essential (primary) hypertension; K21.9 Gastro-esophageal reflux disease without esophagitis; M79.7 Fibromyalgia; Z20.828 Contact with and (suspected) exposure to other viral communicable diseases; T38.0X5A Adverse effect of glucocorticoids and synthetic analogues, initial encounter; T43.595A Adverse effect of other antipsychotics and neuroleptics, initial encounter; T42.4X5A Adverse effect of benzodiazepines, initial encounter; F48.2 Pseudobulbar affect; Z72.89 Other problems related to lifestyle; Z87.891 Personal history of nicotine dependence; Z86.73 Personal history of transient ischemic attack (TIA), and cerebral infarction without residual deficits; Z79.899 Other long term (current) drug therapy; Z88.5 Allergy status to narcotic agent; Z88.0 Allergy status to penicillin; Z91.041 Radiographic dye allergy status; Z90.49 Acquired absence of other specified parts of digestive tract; Z98.890 Other specified postprocedural states; Z80.1 Family history of malignant neoplasm of trachea, bronchus and lung; Z82.5 Family history of asthma and other chronic lower respiratory diseases
CPT/HCPCS: 31500; 36415; 36600; 51702; 70450; 71045; 76604; 80048; 80053; 80306; 80320; 80329; 81003; 82140; 82805; 83520; 83605; 83735; 84100; 85025; 87070; 87205; 93005; 94003; 94640; 94660; 99291

== ENCOUNTER → 2022-05-27 | Outpatient (CLI) | payer MEDICARE ==
--- NOTE | 2022-05-27 14:23 | XR ---
EXAMINATION TYPE: XR chest 2V DATE OF EXAM: 05/27/2022 COMPARISON: 04/28/2020 INDICATION: Presurgical evaluation TECHNIQUE: Frontal and lateral views of the chest are obtained. FINDINGS: The heart size is normal. The right main pulmonary artery appears prominent at 2.4 cm. There is pulmonary hypertension. The lungs are clear. There is elevation left diaphragm. IMPRESSION: 1. No acute pulmonary process. 2. Prominent right main pulmonary artery measuring 2.4 cm. Consider pulmonary hypertension. Follow-up with CT could be performed to evaluate for underlying mass. 3. Elevation of the left diaphragm.
[2022-05-27 14:59] LABS: Partial Thromboplastin Time 25.7 sec (22.0-30.0); Prothrombin Time 11.1 sec (9.0-12.0)
[2022-05-27 18:19] LABS: Basophils # (A) 0.03 X 10*3/uL (0.00-0.10); Basophils % (A) 0.5 %; Eosinophils # (A) 0.05 X 10*3/uL (0.04-0.35); Eosinophils % (A) 0.8 %; HCT 35.9 % (37.2-46.3); HGB 12.1 g/dL (12.0-15.0); Immature Grans, Automated 0.2 %; Lymphocytes % (A) 17.1 %; MCH 31.2 pg (27.0-32.0); MCHC 33.7 g/dL (32.0-37.0); MCV 92.5 fL (80.0-97.0); Mean Platelet Volume 9.8 fL (9.5-12.2); Monocytes # (A) 0.39 X 10*3/uL (0.20-1.00); Monocytes % (A) 6.1 %; NRBC Per 100 WBC 0 /100 WBCS (0.0-0.0); Neutrophils # (A) 4.84 X 10*3/uL (1.80-7.70); Neutrophils % (A) 75.3 %; Platelet Count 251 X 10*3/uL (140-440); RBC 3.88 X 10*6/uL (4.10-5.20); RDW 12.4 % (11.5-14.5); WBC 6.42 X 10*3/uL (4.50-10.00)
[2022-05-27 19:14] LABS: ALT 18 U/L (8-44); AST 24 U/L (13-35); Albumin/Globulin Ratio 1.54 (1.60-3.17); Alkaline Phosphatase 89 U/L (41-126); BUN/Creat Ratio 33.83 Ratio (12.00-20.00); Blood Urea Nitrogen 20.3 mg/dL (9.0-27.0); Calcium 9.5 mg/dL (8.7-10.3); Carbon Dioxide 28.2 mmol/L (20.0-27.5); Chloride 93 mmol/L (96-109); Chol/HDL Ratio 2.86 Ratio; Globulin 2.6 g/dL (1.6-3.3); Glucose 160 mg/dL (70-110); LDL Cholesterol,Calculated 101.9 mg/dL (0.0-131.0); Non-African American GFR(CKD) 92.4 (60.0-200.0); Potassium 4.1 mmol/L (3.5-5.5); Sodium 132 mmol/L (135-145); Total Protein 6.6 g/dL (6.2-8.2); VLDL Calculation 17.82 mg/dL (5.00-40.00)
== END | disposition home or self-care (01) ==
LOC: LABPAT 13:14
PROVIDERS: ATTEND Orthopaedic Surgery Orthopaedic Surgery of the Spine
DX: Z01.818 Encounter for other preprocedural examination (principal); S32.051A Stable burst fracture of fifth lumbar vertebra, initial encounter for closed fracture; X58.XXXA Exposure to other specified factors, initial encounter; I10 Essential (primary) hypertension; E87.1 Hypo-osmolality and hyponatremia; E87.6 Hypokalemia; M48.061 Spinal stenosis, lumbar region without neurogenic claudication; R73.9 Hyperglycemia, unspecified
CPT/HCPCS: 71046; 80053; 80061; 83036; 85025; 85610; 85730; 87070; 93005

== ENCOUNTER → 2022-06-02 | Outpatient (CLI) | payer MEDICARE ==
--- NOTE | 2022-06-02 14:45 | CT ---
EXAMINATION TYPE: CT chest w con CT DLP: 633 mGycm, Automated exposure control for dose reduction was used. DATE OF EXAM: 06/02/2022 2:28 PM COMPARISON: Chest radiograph 05/27/2022. CLINICAL INDICATION:Female, 71 years old with history of J98.8 RESPIRATORY DISORDER, UNSPECIFIED, suraj g nodule TECHNIQUE: Multiple axial images were obtained through the chest. Sagittal and coronal reformats were created for review. Contrast used:70 mL of Isovue 300 with IV Contrast,. Oral contrast used: none. FINDINGS: LUNGS/ PLEURA: No evidence for pulmonary nodule or suspicious mass. Finding on prior radiograph corre lates with pulmonary vasculature. AIRWAY: Patent and unremarkable. HEART: Heart is mildly enlarged for size. There is mitral valve annular calcifications. Moderate to s evere coronary artery atherosclerosis. MEDIASTINUM: No gross evidence of adenopathy. VASCULATURE: No aortic aneurysm. Scattered atherosclerosis of the arterial vasculature. MUSCULOSKELETAL: No acute osseous abnormalities, multilevel disc degeneration changes are seen throug hout the spine. SOFT TISSUES/LYMPH NODES: Unremarkable. LOWER NECK: No significant findings. UPPER ABDOMEN: No significant findings. IMPRESSION: 1. No evidence for pulmonary mass or pulmonary nodule. 2. Moderate to severe coronary artery atherosclerosis. 3. Mild cardiomegaly.
== END | disposition home or self-care (01) ==
LOC: RADCTMAIN 13:49
PROVIDERS: ATTEND Internal Medicine
DX: I25.10 Atherosclerotic heart disease of native coronary artery without angina pectoris (principal); I51.7 Cardiomegaly
CPT/HCPCS: 71260; Q9967

== ENCOUNTER 2022-06-08 08:12 | Inpatient (IN) | payer MEDICARE ==
[2022-06-06 11:09] VITALS: BMI 33.2
[~2022-06-08 08:12] MED LIST: DEXAMETHASONE SOD PHOSPHATE 4 MG/ML 1 ML VIAL IV ONE; HYDROmorphone 0.5 MG/0.5 ML SYRINGE IVP PRN; LIDOCAINE 1% (10MG/ML) FOR IV START INTRADERMA PRN; MIDAZOLAM 2 MG/2 ML VIAL IV PRN; ceFAZolin 1,000 MG in SODIUM CHLORIDE 0.9% IRRIGATIO 1,000 ML IRRIGATION PRN
[2022-06-08] MEDS: LACTATED RINGERS 1,000 ML IV SCH ×2 (09:38→10:24)
[2022-06-08] MEDS: ONDANSETRON 4 MG/2 ML VIAL IVP ONE ×2 (09:51→16:28)
[2022-06-08] MEDS ORDERED: HEPARIN SODIUM,PORCINE 10,000 UNIT/ML 1 ML VIAL ONE (10:21)
[2022-06-08] MEDS ORDERED: SODIUM CHLORIDE 0.9% IRRIG 1,000 ML BTL IRRIGATION ONE (10:21)
[2022-06-08] MEDS ORDERED: BUPIVACAINE (PF) 0.25% 30 ML VIAL SQ ONE ×2 (10:24→11:06)
[2022-06-08] MEDS ORDERED: LIDOCAINE 2%-EPI 1:100,000 20 ML VIAL SQ ONE ×2 (10:24→11:06)
[2022-06-08] MEDS ORDERED: THROMBIN (BOVINE) 5,000 UNIT VIAL TOPICAL ONE (10:25)
[2022-06-08] MEDS ORDERED: GELATIN SPONGE,ABSORB (SMALL) 1 EACH SPONGE TOPICAL ONE (10:25)
[2022-06-08] MEDS ORDERED: PROPOFOL 10 MG/ML 20 ML VIAL IV ONE (10:27)
[2022-06-08] MEDS ORDERED: SUCCINYLCHOLINE CHLORIDE 200 MG/10 ML VIAL IV ONE (10:27)
[2022-06-08] MEDS ORDERED: ALBUTEROL HFA INHALER INHALATION ONE (10:27)
[2022-06-08] MEDS ORDERED: ceFAZolin 1,000 MG VIAL ONE (10:27)
[2022-06-08] MEDS ORDERED: NEOSTIGMINE 1 MG/ML 10 ML VIAL ONE (10:27)
[2022-06-08] MEDS ORDERED: PHENYLEPHRINE-0.9% NACL SYG 1,000 MCG/10 ML SYRINGE ONE (10:27)
[2022-06-08] MEDS ORDERED: GLYCOPYRROLATE 0.2 MG/ML 2 ML VIAL ONE (10:27)
[2022-06-08] MEDS ORDERED: SODIUM CHLORIDE 0.9% 100 ML BAG ONE (10:27)
[2022-06-08] MEDS ORDERED: fentaNYL (PF) 50 MCG/ML 2 ML AMP ONE (10:27)
[2022-06-08] MEDS ORDERED: HYDROmorphone (PF) 1 MG/ML ONE (10:27)
[2022-06-08] MEDS ORDERED: MIDAZOLAM 2 MG/2 ML VIAL ONE (10:27)
[2022-06-08] MEDS ORDERED: ROCURONIUM 10 MG/ML (5 ML VIAL) IV ONE (10:27)
[2022-06-08] MEDS ORDERED: LIDOCAINE 2% INJ 20 MG/ML (2 ML VIAL) ONE (10:27)
[2022-06-08] MEDS ORDERED: LACTATED RINGERS 1,000 ML IV ONE ×2 (11:39→13:54)
[2022-06-08] MEDS ORDERED: IOPAMIDOL-370 50ML BTL MISCELLANE ONE (11:52)
[2022-06-08] MEDS ORDERED: MAGNESIUM HYDROXIDE 2,400 MG/10 ML CUP PO PRN (14:55)
[2022-06-08] MEDS ORDERED: BENZOCAINE/MENTHOL LOZENG 1 EACH LOZENGE MUCOUS MEM PRN (14:55)
[2022-06-08] MEDS ORDERED: ONDANSETRON 4 MG/2 ML VIAL IVP PRN (14:56)
[2022-06-08] MEDS ORDERED: ACETAMINOPHEN TAB 500 MG TAB PO PRN (15:01)
[2022-06-08] MEDS ORDERED: HYDROcodone/APAP 5-325MG 1 EACH TAB PO PRN (15:01)
--- NOTE | 2022-06-08 15:03 | FL ---
EXAMINATION TYPE: FL guidance operating room, XR lumbar spine 2 or 3V DATE OF EXAM: 06/08/2022 CLINICAL HISTORY: Low back pain. TECHNIQUE: Fluoroscopy. Intraoperative 2 views lumbar spine. COMPARISON: None. FINDINGS: Fluoroscopic guidance was provided during lumbar fusion procedure performed by Dr. Galvin. A total of 53 seconds of fluoroscopic time was utilized during the procedure and 7 spot images was a cquired. Intraoperative paper images saved to PACS are underpenetrated and are thus suboptimally evaluated wit h bilateral pedicular rods and screws at L4-S1 level inserted. IMPRESSION: As Above.
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
[2022-06-08] MEDS: SODIUM CHLORIDE 0.9% 1,000 ML IV SCH (16:57)
[2022-06-08] MEDS: carvediloL 12.5 MG TAB PO SCH (16:57)
[2022-06-08] MEDS: ALBUTEROL NEBULIZED 2.5 MG/3 ML INHALATION SCH ×2 (17:03→21:08)
[2022-06-08] MEDS: CYCLOBENZAPRINE 10 MG TAB PO PRN (18:17)
[2022-06-08] MEDS: HYDROcodone/APAP 5-325MG 1 EACH TAB PO PRN (18:18)
[2022-06-08] MEDS: cloNIDine HCL 0.1 MG TAB PO SCH (20:12)
[2022-06-08] MEDS: CYCLOBENZAPRINE 5 MG TAB PO SCH (20:12)
[2022-06-08] MEDS ORDERED: DOXYCYCLINE 100 MG CAP PO SCH (21:00)
--- NOTE | 2022-06-08 21:34 | P.CONS ---
History of Present Illness - Reason for Consult Consult date: 06/08/22 Medical management - Chief Complaint Status post ORIF of L5 burst fracture with posterior lateral fusion from L4 - History of Present Illness Patient is a 72-year-old female with a known history of COPD on home oxygen as needed at night, fibromyalgia, GERD, hypertension, prior history of smoking and is currently on antibiotics in the form of doxycycline for urinary tract infection was admitted to the hospital for elective lumbar spinal surgery. Patient is status post ORIF of L5 burst fracture with posterior lateral fusion from L4 S1. Patient's blood pressure has been elevated since morning and went up to 250/90 4 mm history. Medicine service consulted for evaluation. Patient otherwise denied any complaints of headache or dizziness. No nausea vomiting abdominal pain or diarrhea. Patient is complaining of lower back pain and bilateral hip pain and leg pain. No chest pain or shortness of breath. No fever no chills. Review of Systems Constitutional: Patient denies any fever or chills . No generalized weakness or weight loss. Abdomen: Patient denied nausea vomiting and diarrhea and abdominal pain. Cardiovascular: Patient denies any chest pain or short of breath no palpitations. Respiratory: Patient does have cough without sputum production. Positive for shortness of breath Neurologic: Patient denied any numbness or tingling headache. Musculoskeletal: Patient denies any complaints of joint swelling or deformity. Skin: Negative Psychiatric: Negative Endocrine: No heat or cold intolerance. No recent weight gain. Genitourinary: No dysuria or hematuria. All other 14 point ROS negative except the above Past Medical History Past Medical History: COPD, Fibromyalgia, GERD/Reflux, Hypertension Additional Past Medical History / Comment(s): Currently on antibiotic for UTI (Dr Glenis christiansen). History of Any Multi-Drug Resistant Organisms: None Reported Past Surgical History: Appendectomy, Joint Replacement, Tonsillectomy Additional Past Surgical History / Comment(s): Right knee replacement X2. Past Anesthesia/Blood Transfusion Reactions: Postoperative Nausea & Vomiting (PONV) Past Psychological History: No Psychological Hx Reported Smoking Status: Former smoker Past Alcohol Use History: Rare Additional Past Alcohol Use History / Comment(s): Quit smoking 20 yrs ago. Past Drug Use History: None Reported - Past Family History Mother Family Medical History: Cancer Medications and Allergies Home Medications Medication Instructions Recorded Confirmed Type Omeprazole 20 mg PO BID 04/23/20 06/08/22 History amLODIPine [Norvasc] 10 mg PO QAM 04/23/20 06/08/22 History carvediloL [Coreg] 25 mg PO BID 04/23/20 06/08/22 History cloNIDine HCL [Catapres] 0.1 mg PO BID 04/23/20 06/08/22 History Doxycycline [Vibramycin] 100 mg PO BID #10 cap 04/28/20 06/08/22 Rx haloperidoL [Haldol] 2 mg PO HS #6 tab 04/28/20 06/08/22 Rx Acetaminophen [Tylenol Extra 500 mg PO DIRECTED PRN 06/06/22 06/08/22 History Strength] Ascorbic Acid [Vitamin C] 1,000 mg PO DAILY 06/06/22 06/08/22 History Cholecalciferol [Vitamin D3 (25 50 mcg PO DAILY 06/06/22 06/08/22 History Mcg = 1000 Iu)] Cyclobenzaprine [Flexeril] 5 mg PO BID 06/06/22 06/08/22 History Diclofenac Sodium [Voltaren 1 applic TOPICAL DIRECTED PRN 06/06/22 06/08/22 History Arthritis Pain 1% Gel] Hydrocodone/Acetaminophen 1 tab PO TID PRN 06/06/22 06/08/22 History [Hydrocodone/Acetaminophen 5-325] Lisinopril-Hctz 20-12.5 mg 1 tab PO QAM 06/06/22 06/08/22 History [Zestoretic 20-12.5] Albuterol Nebulized (Conc) 1 ampul INHALATION QID 06/08/22 06/08/22 History [Ventolin Nebulized (Conc)] HYDROcodone/APAP 5-325MG [[place] 1 - 2 tab PO Q6HR PRN #56 tab 06/11/22 Rx 5-325] Allergies Allergy/AdvReac Type Severity Reaction Status Date / Time codeine Allergy Rash/Hives Verified 06/08/22 09:21 iodine Allergy Unknown Verified 06/08/22 10:01 Penicillins Allergy Rash/Hives Verified 06/08/22 09:22 Physical Exam Vitals: Vital Signs Temp Pulse Pulse Pulse Resp BP Pulse Ox 06/08/22 21:08 88 06/08/22 19:40 97.9 F 86 16 175/68 98 06/08/22 18:05 87 165/78 97 06/08/22 17:51 83 155/66 97 06/08/22 17:35 86 174/75 97 06/08/22 17:20 86 191/81 96 06/08/22 17:15 87 06/08/22 17:06 87 196/79 94 L 06/08/22 17:04 87 06/08/22 16:50 82 183/96 95 06/08/22 16:35 79 197/96 98 06/08/22 16:29 76 16 06/08/22 16:20 79 197/96 96 06/08/22 16:05 97.5 F L 75 18 197/80 95 06/08/22 15:46 76 16 167/76 99 06/08/22 15:31 73 16 168/77 99 06/08/22 15:18 81 16 173/71 99 06/08/22 14:57 97 F L 82 14 190/74 99 06/08/22 09:39 99.0 F 84 20 215/94 97 Intake and Output 06/08/22 06/08/22 06/08/22 06:59 14:59 22:59 Intake Total 2551 200 Output Total 350 Balance 2201 200 Intake: IV 2551 0 Intake, IV Titration 200 Amount Sodium Chloride 0.9% 1, 150 000 ml @ 75 mls/hr IV . [id number] PENDING SALE TO [facility] Rx#:[id number] ceFAZolin 2 gm In Sodium 50 Chloride 0.9% 50 ml @ 100 mls/hr IVPB Q8H PENDING SALE TO [facility] Rx#: [id number] Output: Urine 200 Estimated Blood Loss 150 Other: Voiding Method Indwelling Catheter Weight 80.739 kg 80.739 kg PHYSICAL EXAMINATION: Patient is lying in the bed comfortably, no acute distress, awake alert and o riented.. HEENT: Normocephalic. Neck is supple. Pupils reactive. Nostrils clear. Oral cavity is moist. Neck reveals no JVD, carotid bruits, or thyromegaly. CHEST EXAMINATION: Trachea is central. Symmetrical expansion. Bilateral coarse breath sounds and mild expiratory wheeze.. CARDIAC: Normal S1, S2 with no gallops. No murmurs ABDOMEN: Soft. Bowel sounds normal. No organomegaly. No abdominal bruits. Extremities: reveal no edema. No clubbing or cyanosis Neurologically awake, alert, oriented x3 with well-coordinated movements. No focal deficits noted Skin: No rash or skin lesions. Psychiatric: Coperative. Nonsuicidal Musculoskeletal: No joint swelling or deformity. Normal range of motion. Results CBC & Chem 7: 06/10/22 10:24 06/10/22 10:24 Assessment and Plan Assessment: Accelerated essential hypertension likely due to pain. S/p ORIF of L5 burst fracture. Postoperative day 0 spinal stenosis L4-L5 L5-S1 and lower extremity radiculopathy and chronic low back pain Hypertension COPD on home oxygen presented nightly. With mild exacerbation. Fibromyalgia GERD Previous history of smoking DVT prophylaxis Plan: Patient was started back on blood pressure medications including Norvasc, Coreg, Catapres and lisinopril/hydrochlorothiazide. Titrate blood pressure medications as needed. Follow-up CBC and BMP. Continue with albuterol inhalation as needed for shortness of breath. Oxygen supplementation. Encourage with incentive spirometry and pain management. Bowel regimen follow- up closely. Further recommendations based on clinical course. Time with Patient: Greater than 30
[2022-06-09] MEDS: HYDROmorphone 0.5 MG/0.5 ML SYRINGE IVP PRN (00:43)
[2022-06-09] MEDS: HYDROcodone/APAP 5-325MG 1 EACH TAB PO PRN ×5 (02:48→21:44)
[2022-06-09] MEDS: ALBUTEROL NEBULIZED 2.5 MG/3 ML INHALATION SCH ×4 (08:12→21:19)
[2022-06-09] MEDS: SODIUM CHLORIDE 0.9% 1,000 ML IV SCH ×2 (08:15→17:28)
[2022-06-09] MEDS: CYCLOBENZAPRINE 10 MG TAB PO PRN (08:16)
[2022-06-09] MEDS: LACTATED RINGERS 1,000 ML IV SCH (08:16)
[2022-06-09] MEDS: CHOLECALCIFEROL 25 MCG (1000 IU) TABLET PO SCH (08:16)
[2022-06-09] MEDS: cloNIDine HCL 0.1 MG TAB PO SCH ×2 (08:16→21:44)
[2022-06-09] MEDS: CYCLOBENZAPRINE 5 MG TAB PO SCH ×2 (08:16→21:44)
[2022-06-09] MEDS: PANTOPRAZOLE 40 MG TABLET PO SCH (08:16)
[2022-06-09] MEDS: ASCORBIC ACID 500 MG TAB PO SCH (08:17)
[2022-06-09] MEDS: amLODIPine 10 MG TAB PO SCH (08:17)
[2022-06-09] MEDS: carvediloL 12.5 MG TAB PO SCH ×2 (08:17→17:28)
[2022-06-09] MEDS: LISINOPRIL-HCTZ 20-12.5 MG 1 EACH TAB PO SCH (08:17)
[2022-06-09] MEDS: SENNOSIDES-DOCUSATE SODIUM 1 EACH TAB PO SCH (08:18)
[2022-06-09] MEDS: SYMBICORT 160-4.5 MCG INHALER INHALATION SCH ×2 (09:13→20:10)
[2022-06-09] MEDS: methylPREDNISolone SOD SUCCI 40 MG/ML 1 ML VIAL IV SCH ×2 (09:23→15:50)
[2022-06-09 10:32] LABS: Basophils # (A) 0.02 X 10*3/uL (0.00-0.10); Basophils % (A) 0.3 %; Eosinophils # (A) 0.02 X 10*3/uL (0.04-0.35); Eosinophils % (A) 0.3 %; HCT 32.5 % (37.2-46.3); HGB 10.3 g/dL (12.0-15.0); Immature Grans, Automated 0.6 %; Lymphocytes # (A) 0.61 X 10*3/uL (0.90-5.00); Lymphocytes % (A) 9.1 %; MCH 30.8 pg (27.0-32.0); MCHC 31.7 g/dL (32.0-37.0); MCV 97.3 fL (80.0-97.0); Mean Platelet Volume 9.6 fL (9.5-12.2); Monocytes # (A) 0.68 X 10*3/uL (0.20-1.00); Monocytes % (A) 10.1 %; NRBC Per 100 WBC 0 /100 WBCS (0.0-0.0); Neutrophils # (A) 5.33 X 10*3/uL (1.80-7.70); Neutrophils % (A) 79.6 %; Platelet Count 172 X 10*3/uL (140-440); RBC 3.34 X 10*6/uL (4.10-5.20); RDW 12.9 % (11.5-14.5)
[2022-06-09 10:42] LABS: African American GFR (CKD) 112.9 (60.0-200.0); Anion Gap 5.2 mmol/L (10.00-18.00); BUN/Creat Ratio 34.8 Ratio (12.00-20.00); Blood Urea Nitrogen 17.4 mg/dL (9.0-27.0); Calcium 8.3 mg/dL (8.7-10.3); Carbon Dioxide 31.8 mmol/L (20.0-27.5); Non-African American GFR(CKD) 97.4 (60.0-200.0); Potassium 3.9 mmol/L (3.5-5.5)
--- NOTE | 2022-06-09 10:48 | P.PN ---
Progress Note - Text Progress Note Date: 06/09/22 Postoperative day #1 Patient is seen and examined today at bedside. The patient has some pain around the surgical site as expected. Pain is being controlled with medication. She is sitting up in her chair. She says her back is feeling somewhat better than it did before surgery. This sore around the surgical site as expected. She denies any new changes in her lower extremities. She says she is breathing comfortably. She feels a little bit foggy, but she had an extra dose of Flexeril this morning Physical Exam Afebrile with stable vital signs Abdomen is soft nontender. Chest has good excursion deep and space expiration The incision site is clean dry and intact. No erythema there is no purulence. Extremities have not had neurologic change from prior to surgery. She has sustained dorsal flexion plantarflexion and EHL intact Calves and thighs were soft nontender without evidence of DVT. Assessment/Plan Postoperative day 1 status post open reduction internal fixation of L5 burst fracture with decompression fusion L4 5 L5-S1 Patient is progressing as expected from the surgery. Her back has improved stability with the surgery and she is feeling somewhat more comfortable. The pain in her back is likely surgical history expected She had a double dose of Flexeril this morning and I think that his counts for her foggy feeling. She denies any chest pain or shortness of breath and we discussed this with her in terms of if she is having any significant change we can have further workup. Medicine is aware. We will continue to increase the patient's mobilization with therapy. Possible home on Monday We will continue pain control with oral or IV medications. We'll continue to follow patient closely.
--- NOTE | 2022-06-09 11:30 | P.CNPUL ---
History of Present Illness Consult date: 06/09/22 Requesting physician: Tracie Vera Reason for consult: COPD Chief complaint: Back pain History of present illness: This is a very pleasant 72-year-old female patient with a known history of h ypertension, chronic cor pulmonale, gastroesophageal reflux disease, paralysis of the diaphragm, chronic hypoxemic respiratory failure, chronic hypercapnic respiratory failure, restless legs and significant chronic obstructive pulmonary disease with an FEV1 value of 47% of predicted and is oxygen dependent. She also Dr. Mayberry in our office. He did see her as a preop clearance. She was admitted yesterday for an elective surgery for an L5 burst fracture. She did undergo open reduction internal fixation of L5 burst fracture with posterior lateral fusion from L4 to S1. She is seen today in consultation on the regular medical floor. She is currently sitting up at the bedside. Being assisted with physical therapy. Awake and alert in no acute distress. She denies any worsening shortness of breath, cough or congestion. She does have some bilateral end expiratory wheeze. She is maintaining good O2 saturations in the 90s on 2 L/m per nasal cannula. Afebrile. Hemodynamically stable. White count 6.7. Hemoglobin 10.3. Sodium 131. Potassium 3.9. BUN 17. Creatinine 0.5. Glucose 110. She is continued on Symbicort, DuoNeb inhalations. 0.9 normal saline at 75 ML's per hour. Review of Systems REVIEW OF SYSTEMS: CONSTITUTIONAL: Denies any recent significant weight loss or weight gain. EYES: Denies change in vision. EARS, NOSE, MOUTH, THROAT: Denies headaches, denies sore throat. CARDIOVASCULAR: Denies chest pain, palpitations or syncopal episodes. RESPIRATORY: Positive for dyspnea on exertion. GASTROINTESTINAL: Denies change in appetite, denies abdominal pain GENITOURINARY: Denies hematuria, denies infections. MUSKULOSKELETAL: Positive for back pain. INTEGUMENTARY: Denies rash, denies eczema. NEUROLOGICAL: Denies recent memory loss, no recent seizure activity. PSYCHIATRIC: Denies anxiety, denies depression. HEMATOLOGIC/LYMPHATIC: Denies anemia, denies enlarged lymph nodes. Past Medical History Past Medical History: COPD, Fibromyalgia, GERD/Reflux, Hypertension Additional Past Medical History / Comment(s): Currently on antibiotic for UTI (Dr Pasia aware). History of Any Multi-Drug Resistant Organisms: None Reported Past Surgical History: Appendectomy, Joint Replacement, Tonsillectomy Additional Past Surgical History / Comment(s): Right knee replacement X2. Past Anesthesia/Blood Transfusion Reactions: Postoperative Nausea & Vomiting (PONV) Past Psychological History: No Psychological Hx Reported Smoking Status: Former smoker Past Alcohol Use History: Rare Additional Past Alcohol Use History / Comment(s): Quit smoking 20 yrs ago. Past Drug Use History: None Reported - Past Family History Mother Family Medical History: Cancer Medications and Allergies Home Medications Medication Instructions Recorded Confirmed Type Omeprazole 20 mg PO BID 04/23/20 06/08/22 History amLODIPine [Norvasc] 10 mg PO QAM 04/23/20 06/08/22 History carvediloL [Coreg] 25 mg PO BID 04/23/20 06/08/22 History cloNIDine HCL [Catapres] 0.1 mg PO BID 04/23/20 06/08/22 History Doxycycline [Vibramycin] 100 mg PO BID #10 cap 04/28/20 06/08/22 Rx haloperidoL [Haldol] 2 mg PO HS #6 tab 04/28/20 06/08/22 Rx Acetaminophen [Tylenol Extra 500 mg PO DIRECTED PRN 06/06/22 06/08/22 History Strength] Ascorbic Acid [Vitamin C] 1,000 mg PO DAILY 06/06/22 06/08/22 History Cholecalciferol [Vitamin D3 (25 50 mcg PO DAILY 06/06/22 06/08/22 History Mcg = 1000 Iu)] Cyclobenzaprine [Flexeril] 5 mg PO BID 06/06/22 06/08/22 History Diclofenac Sodium [Voltaren 1 applic TOPICAL DIRECTED PRN 06/06/22 06/08/22 History Arthritis Pain 1% Gel] Hydrocodone/Acetaminophen 1 tab PO TID PRN 06/06/22 06/08/22 History [Hydrocodone/Acetaminophen 5-325] Lisinopril-Hctz 20-12.5 mg 1 tab PO QAM 06/06/22 06/08/22 History [Zestoretic 20-12.5] Albuterol Nebulized (Conc) 1 ampul INHALATION QID 06/08/22 06/08/22 History [Ventolin Nebulized (Conc)] Allergies Allergy/AdvReac Type Severity Reaction Status Date / Time codeine Allergy Rash/Hives Verified 06/08/22 09:21 iodine Allergy Unknown Verified 06/08/22 10:01 Penicillins Allergy Rash/Hives Verified 06/08/22 09:22 Physical Exam Vitals: Vital Signs Temp Pulse Pulse Resp BP BP Pulse Ox 06/09/22 10:17 106/62 06/09/22 10:02 96/54 96 06/09/22 08:24 98 06/09/22 08:15 97 06/09/22 08:12 100 06/09/22 08:00 18 06/09/22 07:43 98.3 F 92 18 116/64 98 06/09/22 02:00 98.4 F 87 16 116/66 99 06/08/22 21:23 88 06/08/22 21:08 88 06/08/22 19:40 97.9 F 86 16 175/68 98 06/08/22 18:05 87 165/78 97 06/08/22 17:51 83 155/66 97 06/08/22 17:35 86 174/75 97 06/08/22 17:20 86 191/81 96 06/08/22 17:15 87 06/08/22 17:06 87 196/79 94 L 06/08/22 17:04 87 06/08/22 16:50 82 183/96 95 06/08/22 16:35 79 197/96 98 06/08/22 16:29 76 16 06/08/22 16:20 79 197/96 96 06/08/22 16:05 97.5 F L 75 18 197/80 95 06/08/22 15:46 76 16 167/76 99 06/08/22 15:31 73 16 168/77 99 06/08/22 15:18 81 16 173/71 99 06/08/22 14:57 97 F L 82 14 190/74 99 Intake and Output 06/08/22 06/09/22 06/09/22 22:59 06:59 14:59 Intake Total 200 550 Output Total 850 200 Balance -650 350 Intake: IV 0 Intake, IV Titration 200 Amount Sodium Chloride 0.9% 1, 150 000 ml @ 75 mls/hr IV . [id number] [facility] Rx#:[id number] ceFAZolin 2 gm In Sodium 50 Chloride 0.9% 50 ml @ 100 mls/hr IVPB Q8H [facility] Rx#: [id number] Oral 550 Output: Urine 850 200 Uretheral (Daily) 200 Other: Voiding Method Indwelling Catheter Weight 80.739 kg GENERAL EXAM: Alert, pleasant 72-year-old female patient, on 2 L nasal cannula, comfortable in no apparent distress. HEAD: Normocephalic. EYES: Normal reaction of pupils, equal size. NOSE: Clear with pink turbinates. THROAT: No erythema or exudates. NECK: No masses, no JVD. CHEST: No chest wall deformity. LUNGS: Equal air entry with bilateral end expiratory wheeze, diminished. CVS: S1 and S2 normal with no audible murmur, regular rhythm. ABDOMEN: No hepatosplenomegaly, normal bowel sounds, no guarding or rigidity. SPINE: Dressing to surgical sites in the lower back dry and intact SKIN: No rashes CENTRAL NERVOUS SYSTEM: No focal deficits, tone is normal in all 4 extremities. EXTREMITIES: There is no peripheral edema. No clubbing, no cyanosis. Peripheral pulses are intact. Results - Laboratory Findings CBC and BMP: 06/09/22 06:42 06/09/22 06:42 Abnormal lab findings: Abnormal Labs 06/09/22 06/09/22 06:42 06:42 RBC 3.34 L Hgb 10.3 L Hct 32.5 L MCV 97.3 H MCHC 31.7 L Lymphocytes # 0.61 L Eosinophils # 0.02 L Sodium 131 L Chloride 94 L Carbon Dioxide 31.8 H Anion Gap 5.20 L Creatinine 0.5 L BUN/Creatinine Ratio 34.80 H Calcium 8.3 L Assessment and Plan Assessment: Back pain secondary to L5 burst fracture status post ORIF of L5 burst fracture with posterior lateral fusion from L4 Oxygen dependent chronic obstructive pulmonary disease Former smoker Chronic hypoxemic respiratory failure on home oxygen Chronic hypercapnic respiratory failure Cor pulmonale History of elevated diaphragm Hypertension Gastroesophageal reflux disease Restless leg syndrome Plan: The patient was seen and evaluated Medications and labs reviewed Continue Symbicort, DuoNeb inhalations Add IV Solu-Medrol Increase activity as tolerated We'll continue to follow and make further recommendations based on her clinical status I have personally seen and examined the patient, performed the documentation and the assessment and plan as written. Number of minutes spent on the visit: 20.
[2022-06-09] MEDS: IPRATROPIUM-ALBUTEROL 3 ML NEB INHALATION SCH ×3 (11:42→20:10)
[2022-06-10] MEDS: HYDROmorphone 0.5 MG/0.5 ML SYRINGE IVP PRN (00:11)
[2022-06-10] MEDS: methylPREDNISolone SOD SUCCI 40 MG/ML 1 ML VIAL IV SCH ×2 (00:11→07:18)
[2022-06-10] MEDS: HYDROcodone/APAP 5-325MG 1 EACH TAB PO PRN ×3 (07:07→16:50)
[2022-06-10] MEDS: SODIUM CHLORIDE 0.9% 1,000 ML IV SCH ×2 (07:19→20:19)
[2022-06-10] MEDS: LACTATED RINGERS 1,000 ML IV SCH (07:19)
[2022-06-10] MEDS: CYCLOBENZAPRINE 5 MG TAB PO SCH ×2 (07:22→20:19)
[2022-06-10] MEDS: CHOLECALCIFEROL 25 MCG (1000 IU) TABLET PO SCH (07:22)
[2022-06-10] MEDS: amLODIPine 10 MG TAB PO SCH (07:23)
[2022-06-10] MEDS: PANTOPRAZOLE 40 MG TABLET PO SCH (07:23)
[2022-06-10] MEDS: SENNOSIDES-DOCUSATE SODIUM 1 EACH TAB PO SCH (07:23)
[2022-06-10] MEDS: ASCORBIC ACID 500 MG TAB PO SCH (07:23)
[2022-06-10] MEDS: LISINOPRIL-HCTZ 20-12.5 MG 1 EACH TAB PO SCH (07:23)
[2022-06-10] MEDS: cloNIDine HCL 0.1 MG TAB PO SCH ×2 (07:23→20:19)
[2022-06-10] MEDS: carvediloL 12.5 MG TAB PO SCH ×2 (07:23→16:49)
[2022-06-10] MEDS: IPRATROPIUM-ALBUTEROL 3 ML NEB INHALATION SCH ×4 (08:15→21:04)
[2022-06-10] MEDS: ALBUTEROL NEBULIZED 2.5 MG/3 ML INHALATION SCH (08:16)
[2022-06-10] MEDS: SYMBICORT 160-4.5 MCG INHALER INHALATION SCH ×2 (08:16→21:04)
[2022-06-10 11:31] LABS: Basophils % (A) 0 %; Eosinophils % (A) 0 %; HCT 32.1 % (34.0-46.0); HGB 10.4 gm/dL (11.4-16.0); Lymphocytes # (A) 0.4 k/uL (1.0-4.8); Lymphocytes % (A) 4 %; MCH 31.2 pg (25.0-35.0); MCHC 32.4 g/dL (31.0-37.0); MCV 96.3 fL (80.0-100.0); Mean Platelet Volume 7.6; Monocytes # (A) 0.2 k/uL (0-1.0); Monocytes % (A) 2 %; Neutrophils # (A) 9.6 k/uL (1.3-7.7); Neutrophils % (A) 94 %; Platelet Count 176 k/uL (150-450); RBC 3.33 m/uL (3.80-5.40); RDW 12.6 % (11.5-15.5); WBC 10.3 k/uL (3.8-10.6)
[2022-06-10 11:36] LABS: African American GFR (CKD) >90 (>60 ml/min/1.73 sqM); Anion Gap 10 mmol/L; Blood Urea Nitrogen 15 mg/dL (7-17); Calcium 8.8 mg/dL (8.4-10.2); Carbon Dioxide 29 mmol/L (22-30); Chloride 91 mmol/L (98-107); Glucose 165 mg/dL (74-99); Non-African American GFR(CKD) >90 (>60 ml/min/1.73 sqM); Potassium 3.9 mmol/L (3.5-5.1); Sodium 130 mmol/L (137-145)
--- NOTE | 2022-06-10 12:27 | P.PN ---
Subjective Progress Note Date: 06/10/22 This is a very pleasant 72-year-old female patient with a known history of hypertension, chronic cor pulmonale, gastroesophageal reflux disease, paralysis of the diaphragm, chronic hypoxemic respiratory failure, chronic hypercapnic respiratory failure, restless legs and significant chronic obstructive pulmonary disease with an FEV1 value of 47% of predicted and is oxygen dependent. She also Dr. Mayberry in our office. He did see her as a preop clearance. She was admitted yesterday for an elective surgery for an L5 burst fracture. She did undergo open reduction internal fixation of L5 burst fracture with posterior lateral fusion from L4 to S1. She is seen today in consultation on the regular medical floor. She is currently sitting up at the bedside. Being assisted with physical therapy. Awake and alert in no acute distress. She denies any worsening shortness of breath, cough or congestion. She does have some bilateral end expiratory wheeze. She is maintaining good O2 saturations in the 90s on 2 L/m per nasal cannula. Afebrile. Hemodynamically stable. White count 6.7. Hemoglobin 10.3. Sodium 131. Potassium 3.9. BUN 17. Creatinine 0.5. Glucose 110. She is continued on Symbicort, DuoNeb inhalations. 0.9 normal saline at 75 ML's per hour. The patient is seen today 06/10/2022 in follow-up on the regular medical floor. She is sitting up in a chair at the bedside. Awake and alert in no acute distress. No worsening shortness of breath, cough or congestion. Maintaining O2 saturation in the 90s on 3 L/m per nasal cannula. White count 10.3. Hemoglobin 10.4 sodium 1:30. Potassium 3.9. BUN 15. Creatinine 0.41. Glucose 165. She is continued on Symbicort, DuoNeb inhalations, IV Solu-Medrol. Objective - Vital Signs Vital signs: Vital Signs Temp 98.3 F 06/10/22 08:00 Pulse 90 06/10/22 08:30 Resp 18 06/10/22 08:00 BP 143/71 06/10/22 08:00 Pulse Ox 98 06/10/22 08:00 FiO2 Intake & Output 06/09/22 06/10/22 06/10/22 18:59 06:59 18:59 Output Total 98 Balance -98 Output: Post Void Residual 98 Other: Voiding Method Bedside Commode Bedside Commode # Voids 1 3 - Exam GENERAL EXAM: Alert, pleasant 72-year-old female patient, on 3 L nasal cannula, comfortable in no apparent distress. HEAD: Normocephalic. EYES: Normal reaction of pupils, equal size. NOSE: Clear with pink turbinates. THROAT: No erythema or exudates. NECK: No masses, no JVD. CHEST: No chest wall deformity. LUNGS: Equal air entry with bilateral end expiratory wheeze, diminished. CVS: S1 and S2 normal with no audible murmur, regular rhythm. ABDOMEN: No hepatosplenomegaly, normal bowel sounds, no guarding or rigidity. SPINE: Dressing to surgical sites in the lower back dry and intact SKIN: No rashes CENTRAL NERVOUS SYSTEM: No focal deficits, tone is normal in all 4 extremities. EXTREMITIES: There is no peripheral edema. No clubbing, no cyanosis. Peripheral pulses are intact. - Labs CBC & Chem 7: 06/10/22 10:24 06/10/22 10:24 Labs: Abnormal Lab Results - Last 24 Hours (Table) 06/10/22 06/10/22 Range/Units 10:24 10:24 RBC 3.33 L (3.80-5.40) m/uL Hgb 10.4 L (11.4-16.0) gm/dL Hct 32.1 L (34.0-46.0) % Neutrophils # 9.6 H (1.3-7.7) k/uL Lymphocytes # 0.4 L (1.0-4.8) k/uL Sodium 130 L (137-145) mmol/L Chloride 91 L (98-107) mmol/L Creatinine 0.41 L (0.52-1.04) mg/dL Glucose 165 H (74-99) mg/dL Assessment and Plan Assessment: Back pain secondary to L5 burst fracture status post ORIF of L5 burst fracture with posterior lateral fusion from L4 Oxygen dependent chronic obstructive pulmonary disease Former smoker Chronic hypoxemic respiratory failure on home oxygen Chronic hypercapnic respiratory failure Cor pulmonale History of elevated diaphragm Hypertension Gastroesophageal reflux disease Restless leg syndrome Plan: The patient was seen and evaluated Medications and labs reviewed Continue Symbicort, DuoNeb inhalations Switch steroids to oral prednisone Increase activity as tolerated Home once cleared by surgical service I have personally seen and examined the patient, performed the documentation and the assessment and plan as written. Number of minutes spent on the visit: 10.
--- NOTE | 2022-06-10 17:26 | P.PN ---
Subjective Progress Note Date: 06/10/22 Principal diagnosis: Status post ORIF L5 burst fracture with decompression fusion L4-L5, L5-S1 The patient is a 72 y/o female who is status post ORIF L5 burst fracture with decompression fusion L4-L5, L5-S1. She denies chest pain, shortness of breath, nausea, and vomiting. She is having pain that is well controlled at this time. She has ambulated with physical therapy around her room. The patient states her legs and back are feeling better since surgery. No new complaints today. Objective - Vital Signs Vital signs: Vital Signs Temp 97.6 F 06/10/22 14:00 Pulse 105 H 06/10/22 15:40 Resp 18 06/10/22 14:00 BP 123/70 06/10/22 14:00 Pulse Ox 100 06/10/22 15:30 FiO2 Intake & Output 06/09/22 06/10/22 06/10/22 18:59 06:59 18:59 Output Total 98 Balance -98 Output: Post Void Residual 98 Other: Voiding Method Bedside Commode Bedside Commode # Voids 1 3 1 - Exam The patient is a 72 y/o female in no acute distress. She is alert and oriented x3. The dressing is clean and intact. Incision site is without erythema or purulence. There is an improvement in pain and numbness to her lower extremities since surgery. She has sustained dorsal flexion plantarflexion and EHL intact. Calves are soft and nontender. Ciculatory status is intact. - Labs CBC & Chem 7: 06/10/22 10:24 06/10/22 10:24 Labs: Abnormal Lab Results - Last 24 Hours (Table) 06/10/22 06/10/22 Range/Units 10:24 10:24 RBC 3.33 L (3.80-5.40) m/uL Hgb 10.4 L (11.4-16.0) gm/dL Hct 32.1 L (34.0-46.0) % Neutrophils # 9.6 H (1.3-7.7) k/uL Lymphocytes # 0.4 L (1.0-4.8) k/uL Sodium 130 L (137-145) mmol/L Chloride 91 L (98-107) mmol/L Creatinine 0.41 L (0.52-1.04) mg/dL Glucose 165 H (74-99) mg/dL Assessment and Plan (1) Burst fracture of lumbar vertebra Current Visit: Yes Status: Acute Code(s): S32.001A - STABLE BURST FRACTURE OF UNSP LUMBAR VERTEBRA, INIT SNOMED Code(s): 409032547 Plan: The clinical findings were discussed with the patient. The case was discussed with Dr. Galvin. She will continue to increase her mobility and will try to do stairs with physical therapy before she leaves the hospital. Continue pain control. Brace on when out of bed. We will continue to follow her closely.
[2022-06-11] MEDS: ALBUTEROL NEBULIZED 2.5 MG/3 ML INHALATION PRN (00:16)
[2022-06-11] MEDS: HYDROcodone/APAP 5-325MG 1 EACH TAB PO PRN ×3 (01:27→17:47)
[2022-06-11] MEDS: HYDROmorphone 0.5 MG/0.5 ML SYRINGE IVP PRN (03:37)
[2022-06-11] MEDS: CHOLECALCIFEROL 25 MCG (1000 IU) TABLET PO SCH (07:20)
[2022-06-11] MEDS: PANTOPRAZOLE 40 MG TABLET PO SCH (07:20)
[2022-06-11] MEDS: cloNIDine HCL 0.1 MG TAB PO SCH ×2 (07:20→21:24)
[2022-06-11] MEDS: ASCORBIC ACID 500 MG TAB PO SCH (07:20)
[2022-06-11] MEDS: amLODIPine 10 MG TAB PO SCH (07:20)
[2022-06-11] MEDS: CYCLOBENZAPRINE 5 MG TAB PO SCH ×2 (07:21→21:25)
[2022-06-11] MEDS: predniSONE 10 MG TAB PO SCH (07:21)
[2022-06-11] MEDS: SENNOSIDES-DOCUSATE SODIUM 1 EACH TAB PO SCH (07:21)
[2022-06-11] MEDS: LISINOPRIL-HCTZ 20-12.5 MG 1 EACH TAB PO SCH (07:21)
[2022-06-11] MEDS: carvediloL 12.5 MG TAB PO SCH ×2 (07:21→16:50)
--- NOTE | 2022-06-11 07:45 | P.PN ---
Progress Note - Text Progress Note Date: 06/11/22 Postoperative day #3 Patient is seen and examined today at bedside. The patient has some pain around the surgical site as expected but she feels her pain is much improved from prior to her surgery. She says she is able to get up and around without excruciating pain in her lower back and her lower extremity and this is significantly better than prior to her surgery.. Pain is being controlled with medication. She is eating a little bit and she has not yet had a bowel movement Physical Exam Afebrile with stable vital signs Abdomen is soft nontender. There is no distention and abdomen. Chest has good excursion deep and space expiration The incision site is clean dry and intact. No erythema there is no purulence. The dressing is dry. There is no evidence of any sort of infection. Extremities have not had neurologic change from prior to surgery. She has sustained dorsal flexion plantarflexion and EHL intact Calves and thighs were soft nontender without evidence of DVT. Assessment/Plan Postoperative day #3 status post minimally invasive decompression fusion with open reduction internal fixation of L5 burst fracture and fusion from L4 to S1 with vertebroplasty at L5 and cement augmentation of screws L4 and S1 Patient is progressing as expected from the surgery. Her pain is significant improved and changed significantly in character. She is still having great difficulty trying to move around. She feels she will be able to get up and better by morning tomorrow. She is tolerating some diet she is not nauseous but she is not yet had a bowel movement. Her abdomen is soft. We will continue to increase the patient's mobilization with therapy. I like to see her house get moving a bit more before she returns home by herself and for her to have some slightly better mobility so that she can navigate stairs into her trailer. I think she'll be able to further advance and be comfortable for discharge home tomorrow. We will continue pain control with oral or IV medications. We'll continue to follow patient closely.
[2022-06-11] MEDS: SYMBICORT 160-4.5 MCG INHALER INHALATION SCH ×2 (08:03→20:31)
[2022-06-11] MEDS: IPRATROPIUM-ALBUTEROL 3 ML NEB INHALATION SCH ×4 (08:04→20:31)
--- NOTE | 2022-06-11 11:45 | P.PN ---
Subjective Progress Note Date: 06/11/22 This is a very pleasant 72-year-old female patient with a known history of hypertension, chronic cor pulmonale, gastroesophageal reflux disease, paralysis of the diaphragm, chronic hypoxemic respiratory failure, chronic hypercapnic respiratory failure, restless legs and significant chronic obstructive pulmonary disease with an FEV1 value of 47% of predicted and is oxygen dependent. She also Dr. Mayberry in our office. He did see her as a preop clearance. She was admitted yesterday for an elective surgery for an L5 burst fracture. She did undergo open reduction internal fixation of L5 burst fracture with posterior lateral fusion from L4 to S1. She is seen today in consultation on the regular medical floor. She is currently sitting up at the bedside. Being assisted with physical therapy. Awake and alert in no acute distress. She denies any worsening shortness of breath, cough or congestion. She does have some bilateral end expiratory wheeze. She is maintaining good O2 saturations in the 90s on 2 L/m per nasal cannula. Afebrile. Hemodynamically stable. White count 6.7. Hemoglobin 10.3. Sodium 131. Potassium 3.9. BUN 17. Creatinine 0.5. Glucose 110. She is continued on Symbicort, DuoNeb inhalations. 0.9 normal saline at 75 ML's per hour. The patient is seen today 06/10/2022 in follow-up on the regular medical floor. She is sitting up in a chair at the bedside. Awake and alert in no acute distress. No worsening shortness of breath, cough or congestion. Maintaining O2 saturation in the 90s on 3 L/m per nasal cannula. White count 10.3. Hemoglobin 10.4 sodium 1:30. Potassium 3.9. BUN 15. Creatinine 0.41. Glucose 165. She is continued on Symbicort, DuoNeb inhalations, IV Solu-Medrol. The patient is seen today 06/11/2022 in follow-up on the regular medical floor. Currently sitting up in a chair at the bedside. Awake and alert in no acute distress. She denies any worsening shortness of breath, cough or congestion. She is maintaining good O2 saturations in the 90s on 2 L/m per nasal cannula. She remains on bronchodilators. Back pain is well controlled. Objective - Vital Signs Vital signs: Vital Signs Temp 98.4 F 06/11/22 08:00 Pulse 76 06/11/22 11:36 Resp 18 06/11/22 09:52 BP 144/69 06/11/22 08:00 Pulse Ox 99 06/11/22 08:05 FiO2 Intake & Output 06/10/22 06/11/22 06/11/22 18:59 06:59 18:59 Intake Total 1000 Output Total 250 Balance 1000 -250 Intake: Intake, IV Titration 900 Amount Sodium Chloride 0.9% 1, 900 000 ml @ 75 mls/hr IV . [id number] [facility] Rx#:[id number] Oral 100 Output: Urine 250 Other: Voiding Method Bedside Commode Bedside Commode Bedside Commode # Voids 3 1 # Bowel Movements 0 - Exam GENERAL EXAM: Alert, 72-year-old female patient, on 3 L nasal cannula, comfortable in no apparent distress. HEAD: Normocephalic. EYES: Normal reaction of pupils, equal size. NOSE: Clear with pink turbinates. THROAT: No erythema or exudates. NECK: No masses, no JVD. CHEST: No chest wall deformity. LUNGS: Equal air entry with bilateral end expiratory wheeze, diminished. CVS: S1 and S2 normal with no audible murmur, regular rhythm. ABDOMEN: No hepatosplenomegaly, normal bowel sounds, no guarding or rigidity. SPINE: Dressing to surgical sites in the lower back dry and intact SKIN: No rashes CENTRAL NERVOUS SYSTEM: No focal deficits, tone is normal in all 4 extremities. EXTREMITIES: There is no peripheral edema. No clubbing, no cyanosis. Peripheral pulses are intact. - Labs CBC & Chem 7: 06/10/22 10:24 06/10/22 10:24 Assessment and Plan Assessment: Back pain secondary to L5 burst fracture status post ORIF of L5 burst fracture with posterior lateral fusion from L4 Oxygen dependent chronic obstructive pulmonary disease Former smoker Chronic hypoxemic respiratory failure on home oxygen Chronic hypercapnic respiratory failure Cor pulmonale History of elevated diaphragm Hypertension Gastroesophageal reflux disease Restless leg syndrome Plan: The patient was seen and evaluated Currently stable from the pulmonary standpoint Continue Symbicort, DuoNeb inhalations and prednisone Increase activity as tolerated Home once cleared by surgical service I have personally seen and examined the patient, performed the documentation and the assessment and plan as written. Number of minutes spent on the visit: 10.
[2022-06-11] MEDS: LACTATED RINGERS 1,000 ML IV SCH (21:25)
[2022-06-11] MEDS: SODIUM CHLORIDE 0.9% 1,000 ML IV SCH (21:25)
[2022-06-12] MEDS: HYDROcodone/APAP 5-325MG 1 EACH TAB PO PRN ×3 (00:48→13:05)
[2022-06-12] MEDS: ALBUTEROL NEBULIZED 2.5 MG/3 ML INHALATION PRN (01:08)
[2022-06-12] MEDS: LACTATED RINGERS 1,000 ML IV SCH (02:24)
[2022-06-12] MEDS: PANTOPRAZOLE 40 MG TABLET PO SCH (07:41)
[2022-06-12] MEDS: CHOLECALCIFEROL 25 MCG (1000 IU) TABLET PO SCH (07:41)
[2022-06-12] MEDS: SENNOSIDES-DOCUSATE SODIUM 1 EACH TAB PO SCH (07:41)
[2022-06-12] MEDS: predniSONE 10 MG TAB PO SCH (07:41)
[2022-06-12] MEDS: amLODIPine 10 MG TAB PO SCH (07:41)
[2022-06-12] MEDS: CYCLOBENZAPRINE 5 MG TAB PO SCH (07:41)
[2022-06-12] MEDS: carvediloL 12.5 MG TAB PO SCH (07:41)
[2022-06-12] MEDS: cloNIDine HCL 0.1 MG TAB PO SCH (07:41)
[2022-06-12] MEDS: ASCORBIC ACID 500 MG TAB PO SCH (07:41)
[2022-06-12] MEDS: LISINOPRIL-HCTZ 20-12.5 MG 1 EACH TAB PO SCH (07:42)
[2022-06-12 07:44] VITALS: BP 150/73; RESP 18; TEMP 98.2
[2022-06-12] MEDS: IPRATROPIUM-ALBUTEROL 3 ML NEB INHALATION SCH ×2 (08:10→11:44)
[2022-06-12] MEDS: SYMBICORT 160-4.5 MCG INHALER INHALATION SCH (08:10)
--- NOTE | 2022-06-12 11:10 | P.PN ---
Subjective Progress Note Date: 06/12/22 Principal diagnosis: Status post ORIF L5 burst fracture with decompression fusion L4-L5, L5-S1 The patient is a 72 y/o female who is status post ORIF L5 burst fracture with decompression fusion L4-L5, L5-S1. She denies chest pain, shortness of breath, nausea, and vomiting. She is having pain that is well controlled at this time. She has ambulated with physical therapy around her room but refused stairs yesterday according to nursing staff. The patient states her legs and back are feeling slightly better since surgery. She is complaining of increasing pain in the left posterior thigh and shortness of breath this morning. She is on O2 at home and Dr. Mayberry is currently following her here. Objective - Vital Signs Vital signs: Vital Signs Temp 98.2 F 06/12/22 07:43 Pulse 80 06/12/22 08:23 Resp 18 06/12/22 08:00 BP 150/73 06/12/22 07:43 Pulse Ox 98 06/12/22 08:12 FiO2 Intake & Output 06/11/22 06/12/22 06/12/22 18:59 06:59 18:59 Intake Total 750 Output Total 250 300 Balance 500 -300 Intake: Intake, IV Titration 750 Amount Sodium Chloride 0.9% 1, 750 000 ml @ 75 mls/hr IV . [id number] [facility] Rx#:[id number] Output: Urine 250 300 Other: Voiding Method Bedside Commode Toilet # Voids 3 1 - Exam The patient is a 72 y/o female in no acute distress. She is alert and oriented x3. The dressing is clean and intact. Incision site is without erythema or purulence. There is an improvement in pain and numbness to her lower extremities since surgery. She has sustained dorsal flexion plantarflexion and EHL intact. Calves are soft and nontender. Ciculatory status is intact. - Labs CBC & Chem 7: 06/10/22 10:24 06/10/22 10:24 Assessment and Plan (1) Burst fracture of lumbar vertebra Status: Acute Code(s): S32.001A - STABLE BURST FRACTURE OF UNSP LUMBAR VERTEBRA, INIT SNOMED Code(s): 874867971 Plan: The clinical findings were discussed with the patient. The case was discussed with Dr. Galvin. She will continue to increase her mobility and will try to do stairs with physical therapy before she leaves the hospital. Continue pain control. Brace on when out of bed. We will continue to follow her closely. She will likely stay until tomorrow due to the increasing pain in the leg and shortness of breath. Patient is seen and examined at bedside. She is on 3 L nasal cannula and breathing at 99%. If her saturation is stabilizing I think it is okay for her to discharge home today as long as it is okay with medicine.I discussed this with her at bedside and she seems to understand.
--- NOTE | 2022-06-12 11:51 | P.PN ---
Subjective Progress Note Date: 06/09/22 Patient is a 72-year-old female with a known history of COPD on home oxygen as needed at night, fibromyalgia, GERD, hypertension, prior history of smoking and is currently on antibiotics in the form of doxycycline for urinary tract infection was admitted to the hospital for elective lumbar spinal surgery. Patient is status post ORIF of L5 burst fracture with posterior lateral fusion from L4 S1. Patient's blood pressure has been elevated since morning and went up to 250/90 4 mm history. Medicine service consulted for evaluation. Patient otherwise denied any complaints of headache or dizziness. No nausea vomiting abdominal pain or diarrhea. Patient is complaining of lower back pain and bilateral hip pain and leg pain. No chest pain or shortness of breath. No fever no chills. 06/09/2022 Patient is currently resting in bed. Awake alert and oriented 3. Back pain is controlled with medications. Still complaints of pain. Shortness of breath with exertion. Patient was started on IV steroids and continue with duo nebs and oxygen supplementation. Pulmonary is on board. Patient has been afebrile. Does have coughing without sputum production. No nausea vomiting or abdominal pain or diarrhea. Laboratory data reviewed. Current medications reviewed. Objective - Vital Signs Vital signs: Vital Signs Temp 98.3 F 06/09/22 07:43 Pulse 80 06/09/22 11:29 Resp 18 06/09/22 08:00 BP 113/65 06/09/22 11:28 Pulse Ox 96 06/09/22 10:02 FiO2 Intake & Output 06/08/22 06/09/22 06/09/22 18:59 06:59 18:59 Intake Total 2751 550 Output Total 350 1050 Balance 2401 -500 Weight 80.739 kg Intake: IV 2551 Intake, IV Titration 200 Amount Sodium Chloride 0.9% 1, 150 000 ml @ 75 mls/hr IV . [id number] [facility] Rx#:[id number] ceFAZolin 2 gm In Sodium 50 Chloride 0.9% 50 ml @ 100 mls/hr IVPB Q8H [facility] Rx#: [id number] Oral 550 Output: Urine 200 1050 Uretheral (Daily) 200 Estimated Blood Loss 150 Other: Voiding Method Indwelling Catheter Indwelling Catheter - Exam PHYSICAL EXAMINATION: Patient is lying in the bed comfortably, no acute distress, awake alert and oriented.. HEENT: Normocephalic. Neck is supple. Pupils reactive. Nostrils clear. Oral cavity is moist. Neck reveals no JVD, carotid bruits, or thyromegaly. CHEST EXAMINATION: Trachea is central. Symmetrical expansion. Bilateral coarse breath sounds and mild expiratory wheeze.. CARDIAC: Normal S1, S2 with no gallops. No murmurs ABDOMEN: Soft. Bowel sounds normal. No organomegaly. No abdominal bruits. Extremities: reveal no edema. No clubbing or cyanosis Neurologically awake, alert, oriented x3 with well-coordinated movements. No focal deficits noted Skin: No rash or skin lesions. Psychiatric: Coperative. Nonsuicidal Musculoskeletal: No joint swelling or deformity. Normal range of motion. - Labs CBC & Chem 7: 06/10/22 10:24 06/10/22 10:24 Labs: Abnormal Lab Results - Last 24 Hours (Table) 06/09/22 06/09/22 Range/Units 06:42 06:42 RBC 3.34 L (4.10-5.20) X 10*6/uL Hgb 10.3 L (12.0-15.0) g/dL Hct 32.5 L (37.2-46.3) % MCV 97.3 H (80.0-97.0) fL MCHC 31.7 L (32.0-37.0) g/dL Lymphocytes # 0.61 L (0.90-5.00) X 10*3/uL Eosinophils # 0.02 L (0.04-0.35) X 10*3/uL Sodium 131 L (135-145) mmol/L Chloride 94 L (96-109) mmol/L Carbon Dioxide 31.8 H (20.0-27.5) mmol/L Anion Gap 5.20 L (10.00-18.00) mmol/L Creatinine 0.5 L (0.6-1.5) mg/dL BUN/Creatinine Ratio 34.80 H (12.00-20.00) Ratio Calcium 8.3 L (8.7-10.3) mg/dL Assessment and Plan Assessment: Accelerated essential hypertension likely due to pain. S/p ORIF of L5 burst fracture. Postoperative day 1 spinal stenosis L4-L5 L5-S1 and lower extremity radiculopathy and chronic low back pain Hypertension COPD on home oxygen presented nightly. With mild exacerbation. Fibromyalgia GERD Previous history of smoking DVT prophylaxis Plan: Patient was started back on blood pressure medications including Norvasc, Coreg, Catapres and lisinopril/hydrochlorothiazide. Titrate blood pressure medications as needed. Follow-up CBC and BMP. Continue with albuterol inhalation as needed for shortness of breath. Oxygen supplementation. Encourage with incentive spirometry and pain management. Bowel regimen follow- up closely. Further recommendations based on clinical course. Time with Patient: Greater than 30
--- NOTE | 2022-06-12 11:53 | P.DS ---
Providers Date of admission: 06/08/22 Attending physician: Patricio Galvin Consults: 06/08/22 15:19 Consult Physician Routine Consulting Provider: Jasbir Duenas Consult Reason/Comments: medical management Do you want consulting provider notified?: Yes 06/08/22 15:20 Consult Physician Routine Consulting Provider: Justa Mayberry Consult Reason/Comments: Pulmonary management Do you want consulting provider notified?: Yes Primary care physician: Lkuasz Solis Kut - Discharge Diagnosis(es) (1) Burst fracture of lumbar vertebra Status: Acute Hospital Course: The patient presented on the day of admission as per their operative note. She had an L5 burst fracture with significant stenosis low back pain and lower extremity radiculopathy. She was having incapacitating pain due to this and underwent her surgical procedure with over reduction internal fixation with fusion L4 to S1 and vertebral plasty as per her operative note. She has been making good progress with her mobility. She's been making good progress there pain as well. She is tolerating her regular diet and passing gas regularly. Her legs are doing well with good motion. Medicine has been following her in terms of her pulmonary status. She is on 3 L nasal cannula and breathing at 90%. She's been able to be decreased down to 2 L. She has 2 L that she wears at home in the evenings Physical Exam The incision site is clean dry and intact. There is no erythema no drainage. There is no purulence no evidence of infection. Abdomen soft and nontender. Chest has good excursion with deep inspiration and expiration. The patient has active and passive range of motion intact at the upper and lower extremities. There is no acute change in neurologic status. She has sustained dorsal flexion plantar flexion and EHL intact. Her calves and thighs soft nontender. No evidence of DVT. Negative Homans sign. Hospital Course Postoperative day #4 status post open reduction internal fixation of L5 burst fracture with decompression and fusion L4 to S1 with vertebroplasty for her L5 burst fracture with spinal stenosis The patient has been making good progress postoperatively. They have completed the prophylactic antibiotics without any signs or symptoms of infection. The patient has been able to advance their diet, and is tolerating diet adequately. The pain was initially controlled with IV medications and is now controlled appropriately with oral medications. The patient has been able to increase their mobilization. The patient has progressed appropriately. Her breathing seems to be stabilizing through this morning and I think they are in good stable condition for discharge today if she is cleared with medicine service. They will be sent home with appropriate prescriptions. I answered their questions to the best of my ability in a language that they can understand and they are agreeable with the plan. They will follow up as directed in approxima tely 2 weeks or sooner if she is having any problems. Patient Condition at Discharge: Fair Plan - Discharge Summary Discharge Rx Participant: No New Discharge Prescriptions: New HYDROcodone/APAP 5-325MG [Trinity 5-325] 1 - 2 tab PO Q6HR PRN #56 tab PRN Reason: Moderate To Severe Pain No Action cloNIDine HCL [Catapres] 0.1 mg PO BID amLODIPine [Norvasc] 10 mg PO QAM carvediloL [Coreg] 25 mg PO BID Omeprazole 20 mg PO BID haloperidoL [Haldol] 2 mg PO HS #6 tab Doxycycline [Vibramycin] 100 mg PO BID #10 cap Cholecalciferol [Vitamin D3 (25 Mcg = 1000 Iu)] 50 mcg PO DAILY Ascorbic Acid [Vitamin C] 1,000 mg PO DAILY Diclofenac Sodium [Voltaren Arthritis Pain 1% Gel] 1 applic TOPICAL DIRECTED PRN PRN Reason: Pain Acetaminophen [Tylenol Extra Strength] 500 mg PO DIRECTED PRN PRN Reason: Pain Albuterol Nebulized (Conc) [Ventolin Nebulized (Conc)] 1 ampul INHALATION QID Lisinopril-Hctz 20-12.5 mg [Zestoretic 20-12.5] 1 tab PO QAM Hydrocodone/Acetaminophen [Hydrocodone/Acetaminophen 5-325] 1 tab PO TID PRN PRN Reason: Pain Cyclobenzaprine [Flexeril] 5 mg PO BID Discharge Medication List Omeprazole 20 mg PO BID 04/23/20 [History] amLODIPine [Norvasc] 10 mg PO QAM 04/23/20 [History] carvediloL [Coreg] 25 mg PO BID 04/23/20 [History] cloNIDine HCL [Catapres] 0.1 mg PO BID 04/23/20 [History] Doxycycline [Vibramycin] 100 mg PO BID #10 cap 04/28/20 [Rx] haloperidoL [Haldol] 2 mg PO HS #6 tab 04/28/20 [Rx] Acetaminophen [Tylenol Extra Strength] 500 mg PO DIRECTED PRN 06/06/22 [History] Ascorbic Acid [Vitamin C] 1,000 mg PO DAILY 06/06/22 [History] Cholecalciferol [Vitamin D3 (25 Mcg = 1000 Iu)] 50 mcg PO DAILY 06/06/22 [History] Cyclobenzaprine [Flexeril] 5 mg PO BID 06/06/22 [History] Diclofenac Sodium [Voltaren Arthritis Pain 1% Gel] 1 applic TOPICAL DIRECTED PRN 06/06/22 [History] Hydrocodone/Acetaminophen [Hydrocodone/Acetaminophen 5-325] 1 tab PO TID PRN 06/06/22 [History] Lisinopril-Hctz 20-12.5 mg [Zestoretic 20-12.5] 1 tab PO QAM 06/06/22 [History] Albuterol Nebulized (Conc) [Ventolin Nebulized (Conc)] 1 ampul INHALATION QID 06/08/22 [History] HYDROcodone/APAP 5-325MG [Trinity 5-325] 1 - 2 tab PO Q6HR PRN #56 tab 06/11/22 [Rx] Follow up Appointment(s)/Referral(s): Patricio Galvin, [Doctor of Osteopathic Medicine] - 2 Weeks [facility], [NON-STAFF] - 1-2 Days ([facility] will call you to schedule your in home nursing visits. ) Activity/Diet/Wound Care/Special Instructions: Keep site clean. May shower with waterproof Tegaderm intact. Do not soak in a tub. On Monday, June 13 patient May remove dressing and then may shower with area uncovered. Leave glue intact and allow it to fray off on its own. May ambulate as tolerated. Avoid heavy or rigorous activity. No repetitive bending twisting or lifting. No overhead work. Discharge Disposition: HOME SELF-CARE
--- NOTE | 2022-06-12 11:54 | P.PN ---
Subjective Progress Note Date: 06/10/22 Patient is a 72-year-old female with a known history of COPD on home oxygen as needed at night, fibromyalgia, GERD, hypertension, prior history of smoking and is currently on antibiotics in the form of doxycycline for urinary tract infection was admitted to the hospital for elective lumbar spinal surgery. Patient is status post ORIF of L5 burst fracture with posterior lateral fusion from L4 S1. Patient's blood pressure has been elevated since morning and went up to 250/90 4 mm history. Medicine service consulted for evaluation. Patient otherwise denied any complaints of headache or dizziness. No nausea vomiting abdominal pain or diarrhea. Patient is complaining of lower back pain and bilateral hip pain and leg pain. No chest pain or shortness of breath. No fever no chills. 06/09/2022 Patient is currently resting in bed. Awake alert and oriented 3. Back pain is controlled with medications. Still complaints of pain. Shortness of breath with exertion. Patient was started on IV steroids and continue with duo nebs and oxygen supplementation. Pulmonary is on board. Patient has been afebrile. Does have coughing without sputum production. No nausea vomiting or abdominal pain or diarrhea. Laboratory data reviewed. 06/10/2022 Patient is currently sitting up in the chair. Awake alert and oriented to 3. Breathing status is better. Patient is on oxygen at 3 L with nasal cannula. Patient is being continued on IV Solu-Medrol, DuoNeb's and Symbicort. Pulmonary is on board. No compressive nausea vomiting abdominal pain. Tolerating oral diet. No cough is from production. Still having exertional dyspnea. Laboratory data showed WBC 10.3 hemoglobin 10.4 and platelets 176 Sodium 1:30 potassium 3.9 chloride 91 bicarb is 29 BUN 15 and creatinine 0.41 and blood sugar is 165. Current medications reviewed. Objective - Vital Signs Vital signs: Vital Signs Temp 98.3 F 06/10/22 08:00 Pulse 90 06/10/22 08:30 Resp 18 06/10/22 08:00 BP 143/71 06/10/22 08:00 Pulse Ox 98 06/10/22 08:00 FiO2 Intake & Output 06/09/22 06/10/22 06/10/22 18:59 06:59 18:59 Output Total 98 Balance -98 Output: Post Void Residual 98 Other: Voiding Method Bedside Commode Bedside Commode # Voids 1 3 - Exam PHYSICAL EXAMINATION: Patient is lying in the bed comfortably, no acute distress, awake alert and oriented.. HEENT: Normocephalic. Neck is supple. Pupils reactive. Nostrils clear. Oral cavity is moist. Neck reveals no JVD, carotid bruits, or thyromegaly. CHEST EXAMINATION: Trachea is central. Symmetrical expansion. Bibasilar minimal crackles. No wheezing... CARDIAC: Normal S1, S2 with no gallops. No murmurs ABDOMEN: Soft. Bowel sounds normal. No organomegaly. No abdominal bruits. Extremities: reveal no edema. No clubbing or cyanosis Neurologically awake, alert, oriented x3 with well-coordinated movements. No focal deficits noted Skin: No rash or skin lesions. Psychiatric: Coperative. Nonsuicidal Musculoskeletal: No joint swelling or deformity. Normal range of motion. - Labs CBC & Chem 7: 06/10/22 10:24 06/10/22 10:24 Labs: Abnormal Lab Results - Last 24 Hours (Table) 06/09/22 06/09/22 Range/Units 06:42 06:42 RBC 3.34 L (4.10-5.20) X 10*6/uL Hgb 10.3 L (12.0-15.0) g/dL Hct 32.5 L (37.2-46.3) % MCV 97.3 H (80.0-97.0) fL MCHC 31.7 L (32.0-37.0) g/dL Lymphocytes # 0.61 L (0.90-5.00) X 10*3/uL Eosinophils # 0.02 L (0.04-0.35) X 10*3/uL Sodium 131 L (135-145) mmol/L Chloride 94 L (96-109) mmol/L Carbon Dioxide 31.8 H (20.0-27.5) mmol/L Anion Gap 5.20 L (10.00-18.00) mmol/L Creatinine 0.5 L (0.6-1.5) mg/dL BUN/Creatinine Ratio 34.80 H (12.00-20.00) Ratio Calcium 8.3 L (8.7-10.3) mg/dL Assessment and Plan Assessment: Accelerated essential hypertension likely due to pain. S/p ORIF of L5 burst fracture. Postoperative day 2 spinal stenosis L4-L5 L5-S1 and lower extremity radiculopathy and chronic low back pain Hypertension COPD on home oxygen presented nightly. With mild exacerbation. Fibromyalgia GERD Previous history of smoking DVT prophylaxis Plan: Patient was started back on blood pressure medications including Norvasc, Coreg, Catapres and lisinopril/hydrochlorothiazide. Titrate blood pressure medications as needed. Follow-up CBC and BMP. Continue with albuterol inhalation as needed for shortness of breath. Oxygen supplementation. Encourage with incentive spirometry and pain management. Bowel regimen follow- up closely. Further recommendations based on clinical course. Time with Patient: Greater than 30
--- NOTE | 2022-06-12 11:56 | P.PN ---
Subjective Progress Note Date: 06/11/22 Patient is a 72-year-old female with a known history of COPD on home oxygen as needed at night, fibromyalgia, GERD, hypertension, prior history of smoking and is currently on antibiotics in the form of doxycycline for urinary tract infection was admitted to the hospital for elective lumbar spinal surgery. Patient is status post ORIF of L5 burst fracture with posterior lateral fusion from L4 S1. Patient's blood pressure has been elevated since morning and went up to 250/90 4 mm history. Medicine service consulted for evaluation. Patient otherwise denied any complaints of headache or dizziness. No nausea vomiting abdominal pain or diarrhea. Patient is complaining of lower back pain and bilateral hip pain and leg pain. No chest pain or shortness of breath. No fever no chills. 06/09/2022 Patient is currently resting in bed. Awake alert and oriented 3. Back pain is controlled with medications. Still complaints of pain. Shortness of breath with exertion. Patient was started on IV steroids and continue with duo nebs and oxygen supplementation. Pulmonary is on board. Patient has been afebrile. Does have coughing without sputum production. No nausea vomiting or abdominal pain or diarrhea. Laboratory data reviewed. 06/10/2022 Patient is currently sitting up in the chair. Awake alert and oriented to 3. Breathing status is better. Patient is on oxygen at 3 L with nasal cannula. Patient is being continued on IV Solu-Medrol, DuoNeb's and Symbicort. Pulmonary is on board. No compressive nausea vomiting abdominal pain. Tolerating oral diet. No cough is from production. Still having exertional dyspnea. Laboratory data showed WBC 10.3 hemoglobin 10.4 and platelets 176 Sodium 1:30 potassium 3.9 chloride 91 bicarb is 29 BUN 15 and creatinine 0.41 and blood sugar is 165. Neck and 06/11/2022 06/11/2022 Patient is currently sitting up in the chair. Pain improved after back brace. No complaints of chest pain or shortness of breath. Breathing status is much improved. No complaints of cough is from production. Currently on 2 L per nasal cannula. Patient being continued on Solu-Medrol and change to prednisone. Continue with duo nebs and patient has been afebrile. No other acute overnight issues. Tolerating oral diet. Denied any complaints of constipation. Current medications reviewed. Objective - Vital Signs Vital signs: Vital Signs Temp 98.0 F 06/11/22 20:00 Pulse 85 06/11/22 20:42 Resp 17 06/11/22 20:00 BP 144/70 06/11/22 20:00 Pulse Ox 98 06/11/22 20:33 FiO2 Intake & Output 06/11/22 06/11/22 06/12/22 06:59 18:59 06:59 Intake Total 1000 750 Output Total 250 Balance 1000 500 Intake: Intake, IV Titration 900 750 Amount Sodium Chloride 0.9% 1, 900 750 000 ml @ 75 mls/hr IV . [id number] [facility] Rx#:[id number] Oral 100 Output: Urine 250 Other: Voiding Method Bedside Commode Bedside Commode # Voids 1 # Bowel Movements 0 - Exam PHYSICAL EXAMINATION: Patient is lying in the bed comfortably, no acute distress, awake alert and o riented.. HEENT: Normocephalic. Neck is supple. Pupils reactive. Nostrils clear. Oral cavity is moist. Neck reveals no JVD, carotid bruits, or thyromegaly. CHEST EXAMINATION: Trachea is central. Symmetrical expansion. Bilateral coarse breath sounds and mild expiratory wheeze.. CARDIAC: Normal S1, S2 with no gallops. No murmurs ABDOMEN: Soft. Bowel sounds normal. No organomegaly. No abdominal bruits. Extremities: reveal no edema. No clubbing or cyanosis Neurologically awake, alert, oriented x3 with well-coordinated movements. No focal deficits noted Skin: No rash or skin lesions. Psychiatric: Coperative. Nonsuicidal Musculoskeletal: No joint swelling or deformity. Normal range of motion. - Labs CBC & Chem 7: 06/10/22 10:24 06/10/22 10:24 Assessment and Plan Assessment: Accelerated essential hypertension likely due to pain. S/p ORIF of L5 burst fracture. Postoperative day 3 spinal stenosis L4-L5 L5-S1 and lower extremity radiculopathy and chronic low back pain Hypertension COPD on home oxygen presented nightly. With mild exacerbation. Fibromyalgia GERD Previous history of smoking DVT prophylaxis Plan: Patient was started back on blood pressure medications including Norvasc, Coreg, Catapres and lisinopril/hydrochlorothiazide. Titrate blood pressure medications as needed. Follow-up CBC and BMP. Continue with albuterol inhalation as needed for shortness of breath. Oxygen supplementation. Encourage with incentive spirometry and pain management. Bowel regimen follow- up closely. Further recommendations based on clinical course. Time with Patient: Greater than 30
[2022-06-12 11:59] VITALS: PULSE 82
--- NOTE | 2022-06-12 12:01 | P.PN ---
Subjective Progress Note Date: 06/12/22 Patient is a 72-year-old female with a known history of COPD on home oxygen as needed at night, fibromyalgia, GERD, hypertension, prior history of smoking and is currently on antibiotics in the form of doxycycline for urinary tract infection was admitted to the hospital for elective lumbar spinal surgery. Patient is status post ORIF of L5 burst fracture with posterior lateral fusion from L4 S1. Patient's blood pressure has been elevated since morning and went up to 250/90 4 mm history. Medicine service consulted for evaluation. Patient otherwise denied any complaints of headache or dizziness. No nausea vomiting abdominal pain or diarrhea. Patient is complaining of lower back pain and bilateral hip pain and leg pain. No chest pain or shortness of breath. No fever no chills. 06/09/2022 Patient is currently resting in bed. Awake alert and oriented 3. Back pain is controlled with medications. Still complaints of pain. Shortness of breath with exertion. Patient was started on IV steroids and continue with duo nebs and oxygen supplementation. Pulmonary is on board. Patient has been afebrile. Does have coughing without sputum production. No nausea vomiting or abdominal pain or diarrhea. Laboratory data reviewed. 06/10/2022 Patient is currently sitting up in the chair. Awake alert and oriented to 3. Breathing status is better. Patient is on oxygen at 3 L with nasal cannula. Patient is being continued on IV Solu-Medrol, DuoNeb's and Symbicort. Pulmonary is on board. No compressive nausea vomiting abdominal pain. Tolerating oral diet. No cough is from production. Still having exertional dyspnea. Laboratory data showed WBC 10.3 hemoglobin 10.4 and platelets 176 Sodium 1:30 potassium 3.9 chloride 91 bicarb is 29 BUN 15 and creatinine 0.41 and blood sugar is 165. Neck and 06/11/2022 06/11/2022 Patient is currently sitting up in the chair. Pain improved after back brace. No complaints of chest pain or shortness of breath. Breathing status is much improved. No complaints of cough is from production. Currently on 2 L per nasal cannula. Patient being continued on Solu-Medrol and change to prednisone. Continue with duo nebs and patient has been afebrile. No other acute overnight issues. Tolerating oral diet. Denied any complaints of constipation. 06/12/2022 Patient is awake alert and oriented 3. Sitting up in the chair. Shortness of breath is improved. IV steroids changed to prednisone but patient does not want to take prednisone. Currently on 2 L via nasal cannula. Patient will be continued on DuoNeb's and Symbicort and outpatient follow up with pulmonary and primary care physician. Discharge medication reconciliation was done. Patient is being discharged home today. No complaints of cough or sputum production. No fever no chills. No other acute overnight issues. Current medications reviewed. Objective - Vital Signs Vital signs: Vital Signs Temp 98.2 F 06/12/22 07:43 Pulse 80 06/12/22 11:46 Resp 18 06/12/22 08:00 BP 150/73 06/12/22 07:43 Pulse Ox 98 06/12/22 08:12 FiO2 Intake & Output 06/11/22 06/12/22 06/12/22 18:59 06:59 18:59 Intake Total 750 Output Total 250 300 Balance 500 -300 Intake: Intake, IV Titration 750 Amount Sodium Chloride 0.9% 1, 750 000 ml @ 75 mls/hr IV . [id number] [facility] Rx#:[id number] Output: Urine 250 300 Other: Voiding Method Bedside Commode Toilet # Voids 3 1 - Exam PHYSICAL EXAMINATION: Patient is lying in the bed comfortably, no acute distress, awake alert and oriented.. HEENT: Normocephalic. Neck is supple. Pupils reactive. Nostrils clear. Oral cavity is moist. Neck reveals no JVD, carotid bruits, or thyromegaly. CHEST EXAMINATION: Trachea is central. Symmetrical expansion. Bilateral coarse breath sounds and no wheeze.. CARDIAC: Normal S1, S2 with no gallops. No murmurs ABDOMEN: Soft. Bowel sounds normal. No organomegaly. No abdominal bruits. Extremities: reveal no edema. No clubbing or cyanosis Neurologically awake, alert, oriented x3 with well-coordinated movements. No focal deficits noted Skin: No rash or skin lesions. Psychiatric: Coperative. Nonsuicidal Musculoskeletal: No joint swelling or deformity. Normal range of motion. - Labs CBC & Chem 7: 06/10/22 10:24 06/10/22 10:24 Assessment and Plan Assessment: Accelerated essential hypertension likely due to pain. S/p ORIF of L5 burst fracture. Postoperative day 4 spinal stenosis L4-L5 L5-S1 and lower extremity radiculopathy and chronic low back pain Hypertension COPD on home oxygen presented nightly. With mild exacerbation. Improving clinically. Fibromyalgia GERD Previous history of smoking DVT prophylaxis Plan: Patient was started back on blood pressure medications including Norvasc, Coreg, Catapres and lisinopril/hydrochlorothiazide. Titrate blood pressure medications as needed. Continue with albuterol inhalation as needed for shortness of breath. Oxygen supplementation. Encourage with incentive spirometry and pain management. Bowel regimen and follow-up closely. Patient is being discharged home today. Patient was recommended to follow with primary care physician and pulmonary as an outpatient. Time with Patient: Greater than 30
--- NOTE | 2022-06-12 14:26 | P.PN ---
Subjective Progress Note Date: 06/12/22 Principal diagnosis: Back pain secondary to L5 burst fracture status post ORIF of L5 burst fracture with posterior lateral fusion from L4 This is a very pleasant 72-year-old female patient with a known history of hypertension, chronic cor pulmonale, gastroesophageal reflux disease, paralysis of the diaphragm, chronic hypoxemic respiratory failure, chronic hypercapnic respiratory failure, restless legs and significant chronic obstructive pulmonary disease with an FEV1 value of 47% of predicted and is oxygen dependent. She also Dr. Mayberry in our office. He did see her as a preop clearance. She was admitted yesterday for an elective surgery for an L5 burst fracture. She did undergo open reduction internal fixation of L5 burst fracture with posterior lateral fusion from L4 to S1. She is seen today in consultation on the regular medical floor. She is currently sitting up at the bedside. Being assisted with physical therapy. Awake and alert in no acute distress. She denies any worsening shortness of breath, cough or congestion. She does have some bilateral end expiratory wheeze. She is maintaining good O2 saturations in the 90s on 2 L/m per nasal cannula. Afebrile. Hemodynamically stable. White count 6.7. Hemoglobin 10.3. Sodium 131. Potassium 3.9. BUN 17. Creatinine 0.5. Glucose 110. She is continued on Symbicort, DuoNeb inhalations. 0.9 normal saline at 75 ML's per hour. The patient is seen today 06/10/2022 in follow-up on the regular medical floor. She is sitting up in a chair at the bedside. Awake and alert in no acute distress. No worsening shortness of breath, cough or congestion. Maintaining O2 saturation in the 90s on 3 L/m per nasal cannula. White count 10.3. Hemoglobin 10.4 sodium 1:30. Potassium 3.9. BUN 15. Creatinine 0.41. Glucose 165. She is continued on Symbicort, DuoNeb inhalations, IV Solu-Medrol. The patient is seen today 06/11/2022 in follow-up on the regular medical floor. Currently sitting up in a chair at the bedside. Awake and alert in no acute distress. She denies any worsening shortness of breath, cough or congestion. She is maintaining good O2 saturations in the 90s on 2 L/m per nasal cannula. She remains on bronchodilators. Back pain is well controlled. Reevaluated today on 06/12/22, patient is doing well, she does have some discomfort from her surgery and she has some left lower extremity pain, pulmonary-queen she is doing well, today I plan to discontinue her prednisone, s he could remain on the rest of the bronchodilators, and I will clear the patient to be discharged home today. Objective - Vital Signs Vital signs: Vital Signs Temp 98.2 F 06/12/22 07:43 Pulse 82 06/12/22 11:59 Resp 18 06/12/22 08:00 BP 150/73 06/12/22 07:43 Pulse Ox 98 06/12/22 08:12 FiO2 Intake & Output 06/11/22 06/12/22 06/12/22 18:59 06:59 18:59 Intake Total 750 Output Total 250 300 Balance 500 -300 Intake: Intake, IV Titration 750 Amount Sodium Chloride 0.9% 1, 750 000 ml @ 75 mls/hr IV . [id number] Rx#:[id number] Output: Urine 250 300 Other: Voiding Method Bedside Commode Toilet # Voids 3 3 - Exam Physical Exam: Revealed a 72-year-old female in no distress. HEENT:[Neck is supple.] [No neck masses.] [No thyromegaly.] [No JVD.] Chest: [Diminished breath sounds at the bases no rhonchi and no wheezes Cardiac Exam: [Normal S1 and S2, no S3 gallop, no murmur.] Abdomen: [Soft, nontender, no megaly, no rebound, no guarding, normal bowel sounds.] Extremities: [No clubbing, no edema, no cyanosis.] Neurological Exam: [No focal neurologic deficit.] Alert and oriented 3 Psychiatric: Normal mood affect and normal mental status examination. - Labs CBC & Chem 7: 06/10/22 10:24 06/10/22 10:24 Assessment and Plan Assessment: Back pain secondary to L5 burst fracture status post ORIF of L5 burst fracture with posterior lateral fusion from L4 Oxygen dependent chronic obstructive pulmonary disease Chronic hypoxemic respiratory failure on home oxygen Chronic hypercapnic respiratory failure Cor pulmonale History of elevated diaphragm Hypertension Recommendation: We'll clear the patient for discharge if cleared by orthopedics Follow-up on outpatient basis patient to resume her home bronchodilators Continue incentive spirometry at home Time with Patient: Less than 30
== END 2022-06-12 13:27 | disposition home health service (06) | DRG 460 ==
LOC: OR 08:12 → 4SSUR 14:40 → OR 06-10 14:55 → 4SSUR 06-11 22:48 → OR 06-12 13:27 → 4SSUR 06-12 13:27
PROVIDERS: ADMIT Orthopaedic Surgery Orthopaedic Surgery of the Spine; ATTEND Orthopaedic Surgery Orthopaedic Surgery of the Spine
PROC: 01NB0ZZ Release Lumbar Nerve, Open Approach (ICD-10-PCS; 2022-06-08)
PROC: 01NR0ZZ Release Sacral Nerve, Open Approach (ICD-10-PCS; 2022-06-08)
PROC: 0QS004Z Reposition Lumbar Vertebra with Internal Fixation Device, Open Approach (ICD-10-PCS; 2022-06-08)
PROC: 07DS3ZZ Extraction of Vertebral Bone Marrow, Percutaneous Approach (ICD-10-PCS; 2022-06-08)
PROC: 8E0WXBZ Computer Assisted Procedure of Trunk Region (ICD-10-PCS; 2022-06-08)
PROC: 0QB00ZX Excision of Lumbar Vertebra, Open Approach, Diagnostic (ICD-10-PCS; principal; 2022-06-08 09:30)
PROC: 0QU00JZ Supplement Lumbar Vertebra with Synthetic Substitute, Open Approach (ICD-10-PCS; principal; 2022-06-08 09:30)
PROC: 0SG0071 Fusion of Lumbar Vertebral Joint with Autologous Tissue Substitute, Posterior Approach, Posterior Column, Open Approach (ICD-10-PCS; principal; 2022-06-08 09:30)
PROC: 0SG3071 Fusion of Lumbosacral Joint with Autologous Tissue Substitute, Posterior Approach, Posterior Column, Open Approach (ICD-10-PCS; 2022-06-08 09:30)
DX: S32.051A Stable burst fracture of fifth lumbar vertebra, initial encounter for closed fracture (principal); J96.11 Chronic respiratory failure with hypoxia; J96.12 Chronic respiratory failure with hypercapnia; M48.061 Spinal stenosis, lumbar region without neurogenic claudication; Z88.0 Allergy status to penicillin; Z88.5 Allergy status to narcotic agent; M16.0 Bilateral primary osteoarthritis of hip; J44.9 Chronic obstructive pulmonary disease, unspecified; E66.9 Obesity, unspecified; G25.81 Restless legs syndrome; G89.29 Other chronic pain; Z68.33 Body mass index [BMI] 33.0-33.9, adult; J98.6 Disorders of diaphragm; Z99.81 Dependence on supplemental oxygen; I10 Essential (primary) hypertension; I27.81 Cor pulmonale (chronic); K21.9 Gastro-esophageal reflux disease without esophagitis; M43.17 Spondylolisthesis, lumbosacral region; M48.07 Spinal stenosis, lumbosacral region; M54.17 Radiculopathy, lumbosacral region; M79.7 Fibromyalgia; Z79.899 Other long term (current) drug therapy; Z87.891 Personal history of nicotine dependence; Z96.651 Presence of right artificial knee joint; Z88.8 Allergy status to other drugs, medicaments and biological substances
CPT/HCPCS: 72100; 80048; 85025; 86850; 86891; 86900; 86901; 88307; 88311; 93005; 94640; 94760